=== PATIENT | male | born 1960 | race Caucasian/White ===

== ENCOUNTER 2023-05-13 00:42 | Emergency (ER) | payer MEDICARE, SELFPAY ==
[2023-05-13 00:43] VITALS: BP 146/82; PULSE 74; RESP 22; TEMP 37.1; O2SAT 100; BMI 25.8
--- NOTE | 2023-05-13 00:45 | XRR_ITS ---
PROCEDURE INFORMATION: Exam: XR Chest Exam date and time: 05/13/2023 12:53 AM Age: 62 years old Clinical indication: Chest pressure; Prior surgery; Surgery date: 6+ months; Surgery type: Cabg; Patient HX: C/O chest pain TECHNIQUE: Imaging protocol: Radiologic exam of the chest. Views: 1 view. COMPARISON: CR Chest 1 [place] [id number] 04/20/2019 12:41 PM FINDINGS: Lungs: Interval resolution of bilateral pulmonary opacities. Pleural spaces: Unremarkable. No pleural effusion. No pneumothorax. Heart/Mediastinum: Unremarkable. No cardiomegaly. Bones/joints: Stable sternotomy. XR/XR chest 1V portable [id number] IMPRESSION: 1. Stable sternotomy. 2. Interval resolution of bilateral pulmonary opacities.
--- NOTE | 2023-05-13 00:46 | ECG_ITS ---
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 Measurements Intervals [place] Rate: 74 P: 58 TX: 206 QRS: -21 QRSD: 122 T: 84 QT: 426 QTc: 474 Interpretive Statements SINUS RHYTHM MODERATE INTRAVENTRICULAR CONDUCTION DELAY MODERATE T-WAVE ABNORMALITY, CONSIDER LATERAL ISCHEMIA Compared to ECG 04/20/2019 18:44:50 Possible ischemia now present Atrial abnormality no longer present T-wave abnormality still present Electronically Signed On 05-15-2023 18:45:41 CATALOGUE AND SPECIAL PRODUCTS MANAGER by Flaca Gómez M.D. [id number] f
[2023-05-13 01:04] LABS: Basophils # 0.1 10^3/uL (0.0-0.1); Basophils % 0.7 %; Eosinophils # 0.1 10^3/uL (0.0-0.8); Eosinophils % 1.1 %; Hematocrit 52.6 % (37-53); Lymphocytes # 3.1 10^3/uL (0.8-4.8); Lymphocytes % 26.8 %; Mean Corpuscular HGB Conc 31.9 g/dL (30-55); Mean Corpuscular Hemoglobin 31.1 pg (27-33); Mean Corpuscular Volume 97.2 fl (82-101); Monocytes # 0.8 10^3/uL (0.2-0.9); Monocytes % 6.8 %; Neutrophils # 7.31 10^3/uL (1.8-7.7); Neutrophils % 63.5 %; Nucleated Red Blood Cells % 0 %; Platelet Count 231 10^3/cmm (157-399); Red Blood Count 5.41 10^6/uL (3.85-5.65); White Blood Count 11.51 10^3/uL (3.29-11.43)
[2023-05-13 01:21] LABS: D Dimer 0.87 ug/mLFEU (0-0.59)
[2023-05-13 01:25] LABS: Troponin(5th) Baseline 31 ng/L (0-15)
[2023-05-13 01:32] LABS: Alanine Aminotransferase 132 U/L (0-41); Alkaline Phosphatase 153 U/L (40-130); Aspartate Amino Transferase 296 U/L (0-40); Blood Urea Nitrogen 28 mg/dL (8-23); Calcium 9.3 mg/dL (8.5-10.5); Carbon Dioxide 25 mmol/L (22-29); Chloride 98 mmol/L (98-107); Creatinine Clr Calc Pharmacy 82.8304; Globulin 3.2 g/dL (1.3-4.6); Glomerular Filtration Rate 75.7 mL/min (90-130); Glucose 204 mg/dL (65-115); NT Pro B Type Natriuretic Pept 421 pg/mL (0-125); Osmolality Calculated 295 mOsm/kg (285-295); Sodium 137 mmol/L (136-145); Total Bilirubin 0.5 mg/dL (0.15-1.2); Total Protein 7.2 g/dL (6.6-8.7)
[2023-05-13] MEDS: ondansetron 2 mg/ML SDV 2 mL 4 MG IVP (01:43)
[2023-05-13] MEDS: morphine 4 mg/mL SDV 1 mL IVP (01:43)
[2023-05-13 02:33] VITALS: BP 102/65; PULSE 64; RESP 18; O2SAT 96
--- NOTE | 2023-05-13 02:42 | ED_ITS ---
HPI - Chest Pain General: Chief Complaint: Chest Pain Stated Complaint: CHEST PAIN Time Seen by Provider: 05/13/23 01:05 History of Present Illness: 62-year-old male with a history of coronary disease. He states that he had a CABG and then stents to follow in 2008. No intervention since that time. He has had an angiogram in the somewhat recent past, but he and his do not re call the date. He presents with chest discomfort to the left greater than right side of his chest, radiating into his neck and down his arms bilaterally. He was given nitroglycerin by EMS and aspirin, with some relief. He notes that his chest pain is significantly improved, but That his arms and hands are still aching. He is a bit short of breath. His states that he has gained some water weight the past several days and seems more swollen. She gave him an extra Lasix daily for the past couple of days trying to mobilize the fluid but it has not seemed to help. Associated symptoms: Reports dyspnea, nausea and palpitations; Deny abdominal pain, fever(s) or vomiting Review of Systems Const: Denies: fever(s) ENMT: Denies: throat pain, odynophagia or hoarseness Card: Reports: chest pain and palpitations Resp: Reports: dyspnea; Denies: productive cough or non-productive cough GI: Reports: nausea; Denies: abdominal pain or vomiting Physical Exam Const: COMMON NORMALS: no acute distress GENERAL APPEARANCE: cooperative; not ill appearing and not frail appearing HENMT: COMMON NORMALS: normocephalic, atraumatic and Normal external nose present HEAD & SCALP: normocephalic and atraumatic FACE & SINUS: normal facial exam and face symmetric NOSE: Normal external nose present Eye: COMMON NORMALS: Equal, round and reactive pupils present and EOMs intact bilaterally PUPIL: Yes Equal, round and reactive pupils present Neck/C-Spine: GENERAL: Yes trachea midline Chest: CHEST: Yes Symmetrical chest wall rise Resp: COMMON NORMALS: normal respiratory effort, No retractions, No use of accessory muscles and clear to auscultation bilaterally AUSCULTATION: clear to auscultation bilaterally Cardio: COMMON NORMALS: regular rate and regular rhythm RATE: regular rate RHYTHM: regular rhythm GI: COMMON NORMALS: Normal to inspection, nondistended, normoactive bowel sounds present Extremity: COMMON NORMALS: no pedal edema Neuro: TITO COMA SCALE: document GCS findings [place] coma scale eye opening: Spontaneous Tito coma scale verbal response: Orientated Tito coma scale motor response: Obey commands Tito coma scale total score: 15 SENSORY EXAM: Yes extremities (intact) Psych: COMMON NORMALS: speech normal SPEECH: Yes normal speech Skin: COMMON NORMALS: no rashes or lesions noted GENERAL SKIN EXAM: no rashes or lesions noted Course Vital Signs: Vital signs: Vital Signs Temperature 98.8 F 05/13/23 00:43 Pulse Rate 64 05/13/23 02:33 Respiratory Rate 18 05/13/23 02:33 Blood Pressure 102/65 05/13/23 02:33 Pulse Oximetry 96 05/13/23 02:33 MDM - Chest Pain Medical Decision Making Pain is essentially resolved to his chest after 4 mg of morphine and 4 mg of Zofran, and the nitroglycerin and aspirin given to the patient by EMS. He still complains of some achiness in his hands. Vitals are good. White blood cell count is 11.5. BUN is 28. Blood sugar is 200. If his first troponin is 31. We do not have her prior baseline on record. His BNP is 421. Again, no baseline or previous BNP available at this point. Chest x-ray is negative. His EKG shows a sinus rhythm with intraventricular conduction delay,, rate of 75, no acute ST elevation or depression. Awaiting a second troponin. Second troponin is stable. Patient's symptoms resolved. He was given the option of observation in the hospital versus going home to return for return of symptoms. He chose the latter. He will be allowed discharge. We will switch Lasix to Bumex for 3 days or so in an attempt to mobilize fluid, then back to furosemide. We will place him on isosorbide. He knows to return for any return of his symptoms Lab Data 05/13/23 00:49 05/13/23 00:49 Radiology Impressions Chest X-Ray 05/13/23 00:45 IMPRESSION: 1. Stable sternotomy. 2. Interval resolution of bilateral pulmonary opacities. Laboratory Results WBC 11.51 10^3/uL (3.29-11.43) H 05/13/23 00:49 RBC 5.41 10^6/uL (3.85-5.65) 05/13/23 00:49 Hgb 16.80 g/dL (11.27-16.99) 05/13/23 00:49 Hct 52.6 % (37-53) 05/13/23 00:49 MCV 97.2 fl (82-101) 05/13/23 00:49 MCH 31.1 pg (27-33) 05/13/23 00:49 MCHC 31.9 g/dL (30-55) 05/13/23 00:49 RDW 14.0 % (12.1-15.1) 05/13/23 00:49 Plt Count 231 10^3/cmm (157-399) 05/13/23 00:49 MPV 11.0 fL (7.4-10.4) H 05/13/23 00:49 Neut % (Auto) 63.5 % 05/13/23 00:49 Lymph % (Auto) 26.8 % 05/13/23 00:49 [place] % (Auto) 6.8 % 05/13/23 00:49 Eos % (Auto) 1.1 % 05/13/23 00:49 Baso % (Auto) 0.7 % 05/13/23 00:49 Neut # (Auto) 7.31 10^3/uL (1.8-7.7) 05/13/23 00:49 Lymph # (Auto) 3.1 10^3/uL (0.8-4.8) 05/13/23 00:49 [place] # (Auto) 0.8 10^3/uL (0.2-0.9) 05/13/23 00:49 Eos # (Auto) 0.1 10^3/uL (0.0-0.8) 05/13/23 00:49 Baso # (Auto) 0.1 10^3/uL (0.0-0.1) 05/13/23 00:49 Nucleated RBC % (auto) 0 % 05/13/23 00:49 Nucleated RBCs # 0.0 /100WBC 05/13/23 00:49 D-Dimer 0.87 ug/mLFEU (0-0.59) H 05/13/23 00:49 Sodium 137 mmol/L (136-145) 05/13/23 00:49 Potassium 5.0 mmol/L (3.5-5.1) 05/13/23 00:49 Chloride 98 mmol/L (98-107) 05/13/23 00:49 Carbon Dioxide 25 mmol/L (22-29) 05/13/23 00:49 Anion Gap 19.0 (5-19) 05/13/23 00:49 BUN 28 mg/dL (8-23) H 05/13/23 00:49 Creatinine 1.0 mg/dL (0.7-1.2) 05/13/23 00:49 GFR Calculation 75.7 mL/min (90-130) L 05/13/23 00:49 Glucose 204 mg/dL (65-115) H 05/13/23 00:49 Calculated Osmolality 295 mOsm/kg (285-295) 05/13/23 00:49 Calcium 9.3 mg/dL (8.5-10.5) 05/13/23 00:49 Total Bilirubin 0.5 mg/dL (0.15-1.2) 05/13/23 00:49 AST 296 U/L (0-40) H 05/13/23 00:49 ALT 132 U/L (0-41) H 05/13/23 00:49 Alkaline Phosphatase 153 U/L (40-130) H 05/13/23 00:49 Troponin T Baseline 31 ng/L (0-15) H 05/13/23 00:49 Troponin T 120 Minute 29.38 ng/L (0-15) H 05/13/23 02:33 Delta Troponin T -1.62 ABS# (0-10) L 05/13/23 02:33 NT-Pro-B Natriuret Pep 421 pg/mL (0-125) H 05/13/23 00:49 Total Protein 7.2 g/dL (6.6-8.7) 05/13/23 00:49 Albumin 4.0 g/dL (3.5-5.2) 05/13/23 00:49 Globulin 3.2 g/dL (1.3-4.6) 05/13/23 00:49 All radiology interpretation(s) finalized by discharge Discharge Plan Discharge Patient Disposition: Home Clinical Impression: Chest pain Condition: Stable Prescriptions: New bumetanide 2 mg tablet 2 mg PO BID 3 Days Qty: 6 0RF isosorbide dinitrate 20 mg tablet 10 mg PO BID Qty: 30 0RF Rx Instructions: allow nitrate-free interval of 12-14 hrs per 24-hr period Discharge Orders: Discharge ED (Routine); Ordered 05/13/23 Ordered By: Juan Carlos Beckett Patient Instructions: Chest Pain (ED) Activity Restrictions/Additional Instructions: Stop your furosemide for the next 3 days. Use the bumetanide as prescribed twice daily for the next 3 days instead. You may go back on the furosemide following. Other medications as directed. Return for return of chest discomfort, worsening shortness of breath, any other concerning symptoms. Follow-up with your doctors next week as scheduled. Coding Level of Care Code ED Curbing Stonecutter for Allan Person
--- NOTE | 2023-05-13 02:46 | ECG_ITS ---
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 Measurements Intervals [place] Rate: 60 P: 58 MS: 209 QRS: -28 QRSD: 129 T: 115 QT: 462 QTc: 464 Interpretive Statements SINUS RHYTHM BORDERLINE LEFT AXIS DEVIATION [QRS AXIS < -20] MODERATE INTRAVENTRICULAR CONDUCTION DELAY [110+ ms QRS DURATION] ST DEVIATION AND MODERATE T-WAVE ABNORMALITY, CONSIDER LATERAL ISCHEMIA [-0.1+ mV T-WAVE IN I/aVL/V5/V6] Compared to ECG 05/13/2023 00:43:31 No significant changes Electronically Signed On 05-15-2023 8:13:44 CLEARANCE REPRESENTATIVE by Flaca Gómez M.D. [id number]
[2023-05-13 03:00] LABS: Troponin 5 2HR 29.38 ng/L (0-15)
[2023-05-13 03:02] LABS: Troponin 5 2HR Delta -1.62 ABS# (0-10)
[2023-05-13 04:07] VITALS: PULSE 62; RESP 18
== END 2023-05-13 04:09 | disposition home or self-care (01) ==
PROVIDERS: Nurse Practitioner Family; Emergency Provider Emergency Medicine
DX: R07.9 Chest pain, unspecified (principal); I25.10 Atherosclerotic heart disease of native coronary artery without angina pectoris; Z95.1 Presence of aortocoronary bypass graft
CPT/HCPCS: 36415; 71045; 80053; 83880; 84484; 85025; 85378; 93005; 96374; 96375; 99285; J2270; J2405

== ENCOUNTER 2023-09-12 18:11 | Emergency (ER) | payer MEDICARE, SELFPAY ==
[2023-09-12 18:15] VITALS: BP 107/62; PULSE 82; RESP 18; TEMP 36.9; O2SAT 96
--- NOTE | 2023-09-12 18:22 | USR_ITS ---
PROCEDURE INFORMATION: Exam: US Scrotum Exam date and time: 09/12/2023 7:11 PM Age: 63 years old Clinical indication: Edema and epididymitis; Patient HX: Patient is seeing a urologist in [place] for chronic uti's and has been on antibiotics, multiplle courses and still has the UTI. Uriologist has prescribed self catheterization 3 times daily for 6 weeks. Now is having right scrotal swelling and pain x 2 weeks. L no history of vasectomy. ; Additional info: Testicle pain and swelling TECHNIQUE: Imaging protocol: Real-time ultrasound of the scrotum and contents with color Doppler and image documentation. COMPARISON: US scrotum [id number] 01/20/2017 1:59 PM FINDINGS: Right testicle is unremarkable in overall size measuring 4.1 x 3.0 x 2.0 cm. There is mild increased vascularity along the superior aspect near the epididymis suspicious for focal orchitis. Right epididymis enlarged, hypervascular and relatively hypoechoic consistent with acute epididymitis.. There is a moderate size accompanying complex hydrocele containing some internal echoes and thin incomplete septations. Left testicle is unremarkable in size and contour measuring 4.5 x 2.6 x 1.9 cm. Left testicle is homogeneous and unremarkable in echotexture. Normal Doppler flow. Left epididymis is unremarkable. No significant hydrocele. Small left varicocele measuring 3 mm in diameter. US/US scrotum [id number] IMPRESSION: Findings consistent with acute right epididymitis/orchitis with accompanying reactive hydrocele.
[2023-09-12 18:48] VITALS: BP 108/66; PULSE 77; O2SAT 92
[2023-09-12 19:42] LABS: Specific Gravity, Urine 1.005 (1.005-1.030); Urine Appearance Hazy (CLEAR); Urine Color Light yellow (Yellow); pH Urine 6 (5-7)
[2023-09-12 19:43] LABS: Add Urine Microscopic? YES; Bilirubin Urine Neg (Negative); Blood Urine Neg (Negative); Glucose Urine UA 4+ (Normal); Ketones Urine Negative (Negative); Leukocyte Esterase Urine 2+ (Negative); Nitrate Urine Negative (Negative); Protein Urine Neg (Negative); Urobilinogen Urine Norm (Negative)
[2023-09-12 19:53] LABS: Add Urine Culture? Yes; Bacteria Urine 2+ /hpf; Mucus Urine TRACE /hpf; RBC Urine 0-4 /hpf (0-2); WBC Urine 0-4 /hpf (0-5)
[2023-09-12 20:00] VITALS: BP 100/63; PULSE 72; O2SAT 91
--- NOTE | 2023-09-12 20:48 | W.ED.MALEGU ---
HPI - Male Genitourinary General: Chief complaint: Urogenital-Male Stated complaint: sent from [facility]. testical epididymitis Time Seen by Provider: 09/12/23 18:37 History of Present Illness: 63-year-old male presents emergency department with complaints of swollen right testicle. He states he self caths due to BPH and urinary retention and has had a urinary tract infection. He states he seen his primary care provider received Augmentin and then was prescribed Bactrim which she is currently taking and he is on day #3 of his Bactrim. He states he started having swelling of the right testicle and pain of the right testicle. He states he does have a urology appointment. He states current pain is a 4 out of 10 at present. Review of Systems General: Reports: 10 or more systems reviewed and unremarkable except in HPI and below : Reports: urinary frequency, urinary urgency, change in urine stream, testicular pain and scrotal swelling Physical Exam Narrative: EXAM NARRATIVE: Constitutional: the patient appears well nourished and of normal development. Vital signs as documented. No acute distress at present. Alert and oriented-to person, place, time and situation. Head, eyes, ears, nose, mouth, throat: Normocephalic, atraumatic. Pupils-equal, round, reactive to light. No scleral icterus. Normal-appearing external ears. Normal appearing nasal turbinates, no drainage. No obvious oral lesions, posterior oropharynx without erythema or exudates. Neck: Supple, trachea is midline, no lymphadenopathy, no jugular venous distension, thyromegaly, or carotid bruits. Carotid upstrokes are brisk bilaterally. Lungs: clear to auscultation to all lung simmons. Symmetrical rise and fall of chest, no obvious signs of increased work of breathing at present. Cardiac: Regular rate and rhythm, positive S1, S2. No murmurs, rubs or gallops that I can appreciate Genitourinary: Right testicular swelling and tenderness to the epididymis. No obvious torsion. Patient is circumcised and there is no appearance of yeast infection. Abdomen: Soft, non-tender to palpation, normal active bowel sounds to all quadrants. No palpable masses, no organomegaly and abdominal bruits. Extremities: 2+ pulses in the upper extremities that are equal bilaterally, 2+ pulses in the lower extremities that are equal bilaterally. Non-edematous. Moves all extremities well, sensation to all extremities are noted. Skin: Warm, dry, intact. Course Vital Signs: Vital signs: Vital Signs Temperature 98.4 F 09/12/23 18:15 Pulse Rate 73 09/12/23 21:34 Respiratory Rate 18 09/12/23 21:34 Blood Pressure 105/74 09/12/23 21:34 Pulse Oximetry 95 09/12/23 21:34 Oxygen Delivery Me thod Room Air 09/12/23 21:00 MDM - Male Medical Decision Making Physical exam completed and documented I will obtain an ultrasound for evaluation of provide the patient antibiotics in addition to his current prescription of Bactrim. Medical Records I reviewed the patient's medical records. Lab Data I reviewed the patient's lab results. Radiology Impressions Scrotum Ultrasound 09/12/23 18:22 IMPRESSION: Findings consistent with acute right epididymitis/orchitis with accompanying reactive hydrocele. Laboratory Results Urine Color Light yellow (Yellow) 09/12/23 19:17 Urine Appearance Hazy (CLEAR) A 09/12/23 19:17 Urine pH 6 (5-7) 09/12/23 19:17 Ur Specific [place] 1.005 (1.005-1.030) 09/12/23 19:17 Urine Protein Neg (Negative) 09/12/23 19:17 Urine Glucose (UA) 4+ (Normal) H 09/12/23 19:17 Urine Ketones Negative (Negative) 09/12/23 19:17 Urine Blood Neg (Negative) 09/12/23 19:17 Urine Nitrate Negative (Negative) 09/12/23 19:17 Urine Bilirubin Neg (Negative) 09/12/23 19:17 Urine Urobilinogen Norm mg/dL (Negative) 09/12/23 19:17 Ur Leukocyte Esterase 2+ (Negative) H 09/12/23 19:17 Urine RBC 0-4 /hpf (0-2) H 09/12/23 19:17 Urine WBC 0-4 /hpf (0-5) H 09/12/23 19:17 Ur Squamous Epith Cells None /hpf (0-5) 09/12/23 19:17 Amorphous Sediment Not Reportable 09/12/23 19:17 Urine Bacteria 2+ /hpf (NONE) H 09/12/23 19:17 Urine Mucus Trace /hpf 09/12/23 19:17 All radiology interpretation(s) finalized by discharge Discharge Plan Discharge Patient Disposition: Home Clinical Impression: Epididymitis, right, Acute UTI Condition: Stable Prescriptions: New doxycycline hyclate 100 mg capsule 100 mg PO BID 14 Days Qty: 28 0RF No Action isosorbide dinitrate 20 mg tablet 10 mg PO BID Qty: 30 0RF Rx Instructions: allow nitrate-free interval of 12-14 hrs per 24-hr period Discharge Orders: Discharge ED (Routine); Ordered 09/12/23 Ordered By: Garth Garcia Referrals: Justin May MD [Primary Care Provider] - Discharge Diet: Usual diet Discharge Activity: Resume usual activity Patient Instructions: Opioid Safety, Pain Management Activity Restrictions/Additional Instructions: Activity Restrictions/Additional Instructions: Thank you for choosing [facility] for your healthcare needs today. Please realize that you were seen in the Emergency Department and that we are providing you with an emergency medical screening exam and this may not be a complete and all inclusive of all the testing and or medical work-up that you may need to determine your ailment or severity of your illness. It is very important that you follow-up as instructed with your Primary care provider or Specialist for additional evaluation and to discuss your medical treatment plan. You may return to the Emergency Department should you have concerns or if your condition changes or worsens in any way. Call to make a Follow-up appointment: [facility] [address] [place] [address] Coding Level of Care Code ED Senior Solutions Consultant for Allan Person
[2023-09-12 21:00] VITALS: BP 116/69; PULSE 72; O2SAT 93
[2023-09-12] MEDS: cefTRIAXone 1,000 MG in water for injection-sterile 2.1 ML 1 MG IM (21:14)
[2023-09-12 21:34] VITALS: BP 105/74; PULSE 73; RESP 18; O2SAT 95
== END 2023-09-12 21:34 | disposition home or self-care (01) ==
PROVIDERS: Emergency Provider Internal Medicine; PCP Family Medicine
DX: N45.1 Epididymitis (principal); N39.0 Urinary tract infection, site not specified
CPT/HCPCS: 76870; 81001; 87077; 87086; 87186; 99284; J0696

== ENCOUNTER → 2023-10-18 12:46 | Day surgery (SDC) | payer MEDICARE, SELFPAY ==
[2023-10-18 13:00] VITALS: BP 92/55; PULSE 66; RESP 18; TEMP 36.5; O2SAT 94
== END ==
PROVIDERS: PCP Family Medicine; Visit Provider Urology
DX: N39.0 Urinary tract infection, site not specified (principal)
CPT/HCPCS: 36569; 36573; C1751

== ENCOUNTER 2023-10-27 09:30 | Oncology outpatient (recurring) (ONCR) | payer MEDICARE, SELFPAY ==
[2023-10-18 14:51] VITALS: BP 97/63; PULSE 63; RESP 16; TEMP 36.9; O2SAT 92
[2023-10-18] MEDS: cefepime 1,000 MG in sodium chloride 0.9% (plus) 50 ML 100 MG IV (14:59)
[2023-10-18 15:26] VITALS: BP 102/64; PULSE 74; RESP 16; TEMP 36.6; O2SAT 92
[2023-10-19 09:24] VITALS: BP 107/69; PULSE 63; RESP 18; TEMP 36.8; O2SAT 95
[2023-10-19] MEDS: cefepime 1,000 MG in sodium chloride 0.9% (plus) 50 ML 100 MG IV (09:52)
[2023-10-19 10:13] VITALS: BP 102/63; PULSE 53; RESP 18; TEMP 36.4; O2SAT 98
[2023-10-20] MEDS: cefepime 1,000 MG in sodium chloride 0.9% (plus) 50 ML 100 MG IV (10:08)
[2023-10-20 10:43] VITALS: BP 103/65; PULSE 60; TEMP 36.1; O2SAT 98
[2023-10-21] MEDS: cefepime 1,000 MG in sodium chloride 0.9% (plus) 50 ML 100 MG IV (09:31)
[2023-10-21 09:35] VITALS: BP 140/80; PULSE 64; RESP 18; TEMP 36.4; O2SAT 99
[2023-10-22 09:15] VITALS: BP 129/76; PULSE 59; RESP 18; TEMP 36.4; O2SAT 100
[2023-10-22] MEDS: cefepime 1,000 MG in sodium chloride 0.9% (plus) 50 ML 100 MG IV (09:27)
[2023-10-22 10:00] VITALS: BP 114/79; PULSE 55; RESP 17; TEMP 36.8; O2SAT 98
[2023-10-23] MEDS: cefepime 1,000 MG in sodium chloride 0.9% (plus) 50 ML 100 MG IV (09:59)
[2023-10-23 10:00] VITALS: BP 109/69; PULSE 67; RESP 16; TEMP 36; O2SAT 98
[2023-10-23 10:30] VITALS: BP 116/73; PULSE 62; RESP 16; TEMP 36.4; O2SAT 97
[2023-10-24 10:01] VITALS: BP 128/78; PULSE 63; RESP 16; TEMP 36.6; O2SAT 95
[2023-10-24] MEDS: cefepime 1,000 MG in sodium chloride 0.9% (plus) 50 ML 100 MG IV (10:26)
[2023-10-25 09:44] VITALS: BP 126/74; PULSE 64; RESP 16; TEMP 36.4; O2SAT 97
[2023-10-25] MEDS: cefepime 1,000 MG in sodium chloride 0.9% (plus) 50 ML 100 MG IV (10:00)
[2023-10-25 10:39] VITALS: BP 107/68; PULSE 60; TEMP 36.3; O2SAT 95
[2023-10-26 09:42] VITALS: BP 120/73; PULSE 64; RESP 16; TEMP 36.6; O2SAT 98
[2023-10-26] MEDS: cefepime 1,000 MG in sodium chloride 0.9% (plus) 50 ML 100 MG IV (10:05)
[2023-10-26 10:46] VITALS: BP 127/69; PULSE 80; RESP 16; O2SAT 99
[2023-10-27] MEDS: cefepime 1,000 MG in sodium chloride 0.9% (plus) 50 ML 100 MG IV (09:04)
[2023-10-27 09:59] VITALS: BP 115/69; PULSE 63; TEMP 36.3; O2SAT 98
== END 2023-10-31 23:59 | disposition home or self-care (01) ==
PROVIDERS: PCP Family Medicine; Visit Provider Physician Assistant
DX: N39.0 Urinary tract infection, site not specified (principal); Z79.2 Long term (current) use of antibiotics; Z53.9 Procedure and treatment not carried out, unspecified reason
CPT/HCPCS: 36569; 36573; 96365; C1751; J0692

== ENCOUNTER 2023-12-30 14:43 | Emergency (ER) | payer MEDICARE, SELFPAY ==
[2023-12-30] VITALS (8 sets, daily range): BP systolic 95–144; BP diastolic 56–77; PULSE 62–84; RESP 16–20; TEMP 38; O2SAT 90–95; BMI 28.7
--- NOTE | 2023-12-30 14:49 | XRR_ITS ---
PROCEDURE INFORMATION: Exam: XR Chest Exam date and time: 12/30/2023 3:09 PM Age: 63 years old Clinical indication: Other: AMS weakness TECHNIQUE: Imaging protocol: Radiologic exam of the chest. Views: 1 view. COMPARISON: CR XR chest 1V portable [id number] 05/13/2023 12:53 AM FINDINGS: Lungs: Mild reticulonodular opacity in the lower lungs bilaterally. Pleural spaces: The left lateral costophrenic sulcus is blunted. No pneumothorax. Heart/Mediastinum: There is moderate enlargement of the cardiac silhouette. Bones/joints: Sternal wires are present. There is no displacement to suggest sternal dehiscence. XR/XR chest 1V portable [id number] IMPRESSION: 1. Mild bilateral lower lung predominant reticulonodular opacity is nonspecific. Possible infection or pulmonary edema. 2. Cardiac enlargement.
--- NOTE | 2023-12-30 14:49 | CTR_ITS ---
PROCEDURE INFORMATION: Exam: CT Head Without Contrast Exam date and time: 12/30/2023 3:12 PM Age: 63 years old Clinical indication: Altered mental status/memory loss; Additional info: Encephalopathy, altered mental status TECHNIQUE: Imaging protocol: Computed tomography of the head without contrast. Radiation optimization: All CT scans at this facility use at least one of these dose optimization techniques: automated exposure control; mA and/or kV adjustment per patient size (includes targeted exams where dose is matched to clinical indication); or iterative reconstruction. COMPARISON: CT head wo con* [id number] 07/02/2017 4:45 PM RADIATION DOSE METRICS: Total DLP (mGy-cm): 1134.68 FINDINGS: Brain: There is mild diffuse cerebral atrophy and chronic microvascular white matter disease. There is no significant mass effect or midline shift. There is no acute intracranial hemorrhage. Cerebral ventricles: There is no significant ventricular dilation. The basal cisterns are unremarkable. Paranasal sinuses: The paranasal sinuses are clear. Mastoid air cells: Trace effusion associated with bone sclerosis in the posteroinferior right mastoid air cells. Moderate left mastoid effusion with extensive bone sclerosis. Bones: The calvarium is intact. Soft tissues: The visible extracranial soft tissues are unremarkable. CT/CT head wo con* [id number] IMPRESSION: 1. No acute intracranial abnormality. 2. Suggestive findings of chronic bilateral mastoiditis, greater on the left, similar to findings on 07/02/2017.
--- NOTE | 2023-12-30 14:56 | ECG_ITS ---
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 Measurements Intervals [place] Rate: 70 P: 49 SC: 171 QRS: -45 QRSD: 106 T: 93 QT: 429 QTc: 465 Interpretive Statements SINUS RHYTHM POSSIBLE LEFT ATRIAL ENLARGEMENT [-0.1mV P-WAVE IN V1/V2] LEFT AXIS DEVIATION [QRS AXIS < -30] MODERATE T-WAVE ABNORMALITY, CONSIDER LATERAL ISCHEMIA [-0.1+ mV T-WAVE IN I/aVL/V5/V6] Compared to ECG 05/13/2023 02:54:10 Intraventricular conduction delay no longer present T-wave abnormality still present Possible ischemia still present Electronically Signed On 12-30-2023 19:11:58 CDT by Kim Devi M.D. [id number]
[2023-12-30 15:12] LABS: Basophils % 0.3 %; Eosinophils % 0.2 %; Hematocrit 47.3 % (37-53); Lymphocytes # 1.6 10^3/uL (0.8-4.8); Lymphocytes % 12.4 %; Mean Corpuscular HGB Conc 32.1 g/dL (30-55); Mean Corpuscular Hemoglobin 28.3 pg (27-33); Mean Corpuscular Volume 87.9 fl (82-101); Mean Platelet Volume 11.9 fL (7.4-10.4); Monocytes # 1.2 10^3/uL (0.2-0.9); Monocytes % 9.5 %; Nucleated Red Blood Cells % 0 %; Platelet Count 166 10^3/cmm (157-399); Red Blood Count 5.38 10^6/uL (3.85-5.65); Red Cell Distribution Width 14.9 % (12.1-15.1); White Blood Count 12.59 10^3/uL (3.29-11.43)
[2023-12-30 15:30] LABS: Troponin(5th) Baseline 97 ng/L (0-15)
[2023-12-30 15:31] LABS: Alanine Aminotransferase 14 U/L (0-41); Albumin Level 3.3 g/dL (3.5-5.2); Alkaline Phosphatase 117 U/L (40-130); Anion Gap 18.2 (5-19); Aspartate Amino Transferase 15 U/L (0-40); Blood Urea Nitrogen 14 mg/dL (8-23); C Reactive Protein 61.6 mg/L (0.0-4.9); Calcium 8.5 mg/dL (8.5-10.5); Carbon Dioxide 24 mmol/L (22-29); Chloride 100 mmol/L (98-107); Globulin 2.6 g/dL (1.3-4.6); Glomerular Filtration Rate 97.6 mL/min (90-130); Glucose 116 mg/dL (65-115); Osmolality Calculated 287 mOsm/kg (285-295); Potassium 4.2 mmol/L (3.5-5.1); Sodium 138 mmol/L (136-145); Total Bilirubin 0.9 mg/dL (0.15-1.2); Total Protein 5.9 g/dL (6.6-8.7)
[2023-12-30 15:32] LABS: Lactic Sepsis W/Reflex 2.3 mmol/L (0.5-2.2)
[2023-12-30 15:38] LABS: Procalcitonin 0.14 ng/mL (0-0.5)
--- NOTE | 2023-12-30 15:45 | ED_ITS ---
HPI - Altered Mental Status 2 General: Chief Complaint: Altered Mental Status Stated Complaint: AMS Time Seen by Provider: 12/30/23 14:44 History of Present Illness: 63-year-old man with history of multiple back issues and chronic back pain, coronary artery disease, ischemic cardiomyopathy, atrial fibrillation on Eliquis, type 2 diabetes, BPH, depression, who presents to the emergency room by ambulance from [facility]. Apparently he is at rehab there. Apparently today he was less responsive than normal. Presentation here he will answer questions. He says that he hurts all over. Said some cough. No focal motor deficits. No known fevers. Review of Systems 2 Narrative: Constitutional symptoms: Negative except as documented in HPI. Skin symptoms: Negative except as documented in HPI. Eye symptoms: Negative except as documented in HPI. ENMT symptoms: Negative except as documented in HPI. Respiratory symptoms: Negative except as documented in HPI. Cardiovascular symptoms: Negative except as documented in HPI. Gastrointestinal symptoms: Negative except as documented in HPI. Genitourinary symptoms: Negative except as documented in HPI. Musculoskeletal symptoms: Negative except as documented in HPI. Neurologic symptoms: Negative except as documented in HPI. Psychiatric symptoms: Negative except as documented in HPI. Endocrine symptoms: Negative except as documented in HPI. Physical Exam 2 Narrative: General: Alert, no acute distress. Patient is febrile on presentation with a temp of 100.4 Skin: Warm, dry. Head: Normocephalic, atraumatic. Neck: Supple, trachea midline. Eye: Extraocular movements are intact. Ears, nose, mouth and throat: mucosa moist. Cardiovascular: Regular, Normal peripheral perfusion. Respiratory: Lungs are clear to auscultation, respirations are non-labored, breath sounds are equal, Symmetrical chest wall expansion. Gastrointestinal: Soft, Nontender, Non distended Musculoskeletal: Normal ROM, no deformity. Neurological: Alert and oriented, No focal neurological deficit observed. Psychiatric: Cooperative, appropriate mood & affect. Course 2 Vital Signs: Vital signs: Vital Signs Temperature 100.4 F H 12/30/23 14:43 Pulse Rate 75 12/30/23 15:37 Respiratory Rate 20 H 12/30/23 14:43 Blood Pressure 102/69 12/30/23 15:37 Pulse Oximetry 92 12/30/23 15:37 Oxygen Delivery Me thod Room Air 12/30/23 14:43 MDM - Altered Mental Status Medical Decision Making Medical decision making: Differential diagnosis including but not limited to and based on the above HPI, review of systems and physical exam: In this patient with altered mental status: Stroke. Hypoglycemia. Metabolic encephalopathy. Infections such as pneumonia, urinary tract infection, Covid-19, Influenza. Electrolyte abnormalities such as hypernatremia. Renal failure / uremia. Hepatic encephalopathy. Hypoxemia. Hypercapnic respiratory failure. Psychosis. Drug or alcohol intoxication. Medication overdose. Orders placed to evaluate differential diagnosis based on the above differential, HPI and physical exam EKG: Time 1456. Rate 70. Normal sinus rhythm, nonspecific ST changes. No ectopy, normal LA & QRS intervals, This was reviewed and interpreted by myself the ER physician at 1500. Repeat EKG: Time 1636. Rate 73. Normal sinus rhythm, nonspecific ST changes. No ectopy, normal LA & QRS intervals, This was reviewed and interpreted by myself the ER physician at 1638. No acute changes from previous CT head: No acute intracranial process. no intracranial hemorrhage, no evidence of infarct. no evidence of acute fracture.This was reviewed and interpreted by myself the ER physician. Chest x-ray: Reticulonodular pattern in the lower lungs bilaterally. This seems to be present in the past. No acute process. No infiltrate. No pneumothorax. This was reviewed and interpreted by myself the ER physician. CT of the chest without contrast: Was ordered to evaluate what appeared to be a abnormal chest x-ray. He has some mild bilateral lung disease that seems to be chronic interstitial disease. Atelectasis versus infection in the lower lobes. This was reviewed and interpreted by myself the emergency room physician. I also reviewed the radiology report. Lab Review: Laboratory results were reviewed and interpreted by myself the emergency room physician. Mild leukocytosis with a white count of 12.5. No anemia. Hemoglobin is 15. No renal failure. BUN and creatinine are 14 and 0.8. Potassium is normal at 4.2. Patient again has a urinary tract infection. I reviewed the patient's medical record. Reexamination: has arrived and has more information. She says he was in the hospital for about a month at [facility] in [place]. He had had multiple urinary tract infections and required different courses of IV antibiotics. She mentions Pseudomonas and E. coli that had been in his urine in the past. She is requesting that he be transferred there. At this time he is not in any distress. No tachycardia. No increased work of breathing. No focal motor deficits. Assessment and plan: Urinary tract infection Sepsis Atelectasis versus pneumonia Metabolic encephalopathy Fever ?I am giving broad-spectrum antibiotics that would cover both lung and resistant organisms in his urine. -2.5 L normal saline bolus. Fluid volumes based on ideal body weight. -Broad-spectrum antibiotics were administered. Meropenem and Zyvox -Sepsis quality measures. -Lactic acid with a reflex was ordered. -Blood cultures were ordered. -I discussed the patient with the hospitalist on-call at [facility] who is accepting the patient in transfer - Dr Palacios accepting. - Discussed findings and plan with patient. Answered any questions. - All laboratory values were reviewed and interpreted personally by myself, the ER physician - All imaging was reviewed and interpreted personally by myself, the ER physician. - Evaluation and treatment of this problem were appropriate in the emergency setting -I spent a total of >35 minutes of critical care time managing the patient, independent of any other practitioner. -The time involved in the performance of separately reportable procedures was not counted towards critical care time. Lab Data 12/30/23 14:33 12/30/23 14:33 Radiology Impressions Chest X-Ray 12/30/23 14:49 IMPRESSION: 1. Mild bilateral lower lung predominant reticulonodular opacity is nonspecific. Possible infection or pulmonary edema. 2. Cardiac enlargement. Head CT 12/30/23 14:49 IMPRESSION: 1. No acute intracranial abnormality. 2. Suggestive findings of chronic bilateral mastoiditis, greater on the left, similar to findings on 07/02/2017. Chest CT 12/30/23 15:45 IMPRESSION: 1. Mild bilateral lung disease with imaging features suggestive of chronic interstitial disease, NSIP pattern. There is superimposed subpleural consolidation in both lower lobes which may represent atelectasis although infection cannot be excluded. 2. Mild upper lung predominant centrilobular emphysema. 3. Mildly dilated ascending thoracic aorta measuring up to 4.3 cm diameter. Recommend clinical assessment and follow-up. 4. Incidental findings above. COMMENTS: The presence of pulmonary emphysema on CT is an independent risk factor for lung cancer. In the absence of a history or active diagnosis of lung cancer, it is recommended that this patient with emphysema be evaluated for enrollment in a low dose CT lung cancer screening program. Laboratory Results WBC 12.59 10^3/uL (3.29-11.43) H 12/30/23 14:33 RBC 5.38 10^6/uL (3.85-5.65) 12/30/23 14:33 Hgb 15.20 g/dL (11.27-16.99) 12/30/23 14:33 Hct 47.3 % (37-53) 12/30/23 14:33 MCV 87.9 fl (82-101) 12/30/23 14:33 MCH 28.3 pg (27-33) 12/30/23 14:33 MCHC 32.1 g/dL (30-55) 12/30/23 14:33 RDW 14.9 % (12.1-15.1) 12/30/23 14:33 Plt Count 166 10^3/cmm (157-399) 12/30/23 14:33 MPV 11.9 fL (7.4-10.4) H 12/30/23 14:33 Neut % (Auto) 77.0 % 12/30/23 14:33 Lymph % (Auto) 12.4 % 12/30/23 14:33 Wilkes % (Auto) 9.5 % 12/30/23 14:33 Eos % (Auto) 0.2 % 12/30/23 14:33 Baso % (Auto) 0.3 % 12/30/23 14:33 Neut # (Auto) 9.70 10^3/uL (1.8-7.7) H 12/30/23 14:33 Lymph # (Auto) 1.6 10^3/uL (0.8-4.8) 12/30/23 14:33 Wilkes # (Auto) 1.2 10^3/uL (0.2-0.9) H 12/30/23 14:33 Eos # (Auto) 0.0 10^3/uL (0.0-0.8) 12/30/23 14:33 Baso # (Auto) 0.0 10^3/uL (0.0-0.1) 12/30/23 14:33 Nucleated RBC % (auto) 0 % 12/30/23 14:33 Nucleated RBCs # 0.0 /100WBC 12/30/23 14:33 Sodium 138 mmol/L (136-145) 12/30/23 14:33 Potassium 4.2 mmol/L (3.5-5.1) 12/30/23 14:33 Chloride 100 mmol/L (98-107) 12/30/23 14:33 Carbon Dioxide 24 mmol/L (22-29) 12/30/23 14:33 Anion Gap 18.2 (5-19) 12/30/23 14:33 BUN 14 mg/dL (8-23) 12/30/23 14:33 Creatinine 0.8 mg/dL (0.7-1.2) 12/30/23 14:33 GFR Calculation 97.6 mL/min (90-130) 12/30/23 14:33 Glucose 116 mg/dL (65-115) H 12/30/23 14:33 Calculated Osmolality 287 mOsm/kg (285-295) 12/30/23 14:33 Lactic Acid 2.3 mmol/L (0.5-2.2) H 12/30/23 14:33 Lactic Acid (Sepsis) 1.8 mmol/L (0.5-2.2) 12/30/23 16:43 Calcium 8.5 mg/dL (8.5-10.5) 12/30/23 14:33 Total Bilirubin 0.9 mg/dL (0.15-1.2) 12/30/23 14:33 AST 15 U/L (0-40) 12/30/23 14:33 ALT 14 U/L (0-41) 12/30/23 14:33 Alkaline Phosphatase 117 U/L (40-130) 12/30/23 14:33 Troponin T Baseline 97 ng/L (0-15) H 12/30/23 14:33 Troponin T 120 Minute 99.26 ng/L (0-15) H 12/30/23 16:43 Delta Troponin T 2.26 ABS# (0-10) 12/30/23 16:43 C-Reactive Protein 61.6 mg/L (0.0-4.9) H 12/30/23 14:33 Total Protein 5.9 g/dL (6.6-8.7) L 12/30/23 14:33 Albumin 3.3 g/dL (3.5-5.2) L 12/30/23 14:33 Globulin 2.6 g/dL (1.3-4.6) 12/30/23 14:33 Procalcitonin 0.14 ng/mL (0-0.5) 12/30/23 14:33 Urine Color Yellow (Yellow) 12/30/23 17:03 Urine Appearance Cloudy (CLEAR) A 12/30/23 17:03 Urine pH 5 (5-7) 12/30/23 17:03 Ur Specific Richards 1.010 (1.005-1.030) 12/30/23 17:03 Urine Protein 1+ (Negative) H 12/30/23 17:03 Urine Glucose (UA) Norm (Normal) 12/30/23 17:03 Urine Ketones Negative (Negative) 12/30/23 17:03 Urine Blood 3+ (Negative) H 12/30/23 17:03 Urine Nitrate Positive (Negative) A 12/30/23 17:03 Urine Bilirubin Neg (Negative) 12/30/23 17:03 Urine Urobilinogen 1 mg/dL (Negative) H 12/30/23 17:03 Ur Leukocyte Esterase 2+ (Negative) H 12/30/23 17:03 Urine RBC 10-15 /hpf (0-2) H 12/30/23 17:03 Urine WBC Too numerous to cnt /hpf (0-5) H 12/30/23 17:03 Ur Squamous Epith Cells None /hpf (0-5) 12/30/23 17:03 Amorphous Sediment Not Reportable 12/30/23 17:03 Urine Bacteria 3+ /hpf (NONE) H 12/30/23 17:03 All radiology interpretation(s) finalized by discharge Discharge Plan Discharge Patient Disposition: Xfer Short-Term Hosp Clinical Impression: Urinary tract infection, Metabolic encephalopathy, Fever Sepsis Qualifiers: Sepsis type: sepsis due to unspecified organism Sepsis acute organ dysfunction status: without acute organ dysfunction Qualified Code(s): A41.9 - Sepsis, unspecified organism Condition: Stable Discharge Orders: Transfer Out of Facility (Order); Ordered 12/30/23 Ordered By: Samina Youssef Referrals: Justin May MD [Primary Care Provider] - Patient Instructions: Altered Mental Status (ED) Coding Level of Care Code ED Pantograph Transferrer for [facility]
--- NOTE | 2023-12-30 15:45 | CTR_ITS ---
PROCEDURE INFORMATION: Exam: CT Chest Without Contrast; Diagnostic Exam date and time: 12/30/2023 4:14 PM Age: 63 years old Clinical indication: Abnormal findings; Abnormal radiologic exam of lung or chest; Additional info: Abnormal chest xray TECHNIQUE: Imaging protocol: Diagnostic computed tomography of the chest without contrast. Radiation optimization: All CT scans at this facility use at least one of these dose optimization techniques: automated exposure control; mA and/or kV adjustment per patient size (includes targeted exams where dose is matched to clinical indication); or iterative reconstruction. COMPARISON: CR (CHEST, ) 12/30/2023 3:09 PM RADIATION DOSE METRICS: Total DLP (mGy-cm): 607.29 FINDINGS: Lungs: There is mild upper lung predominant centrilobular emphysema. There is mild bilateral lung disease characterized by peripheral lower lung predominant fine reticular opacity sparing the subpleural portions of the lungs, mildly asymmetrically greater on the right. There is mild dependent consolidation in both lung bases. There is mild volume loss in both lower lobes. Pleural spaces: There is no pleural effusion or pneumothorax. Heart: There is mild cardiac enlargement. There is no pericardial effusion. Coronary arteries: There is moderate coronary artery calcification. Lymph nodes: There is no mediastinal or hilar lymphadenopathy. Vasculature: There is mild aortic atherosclerotic disease. The ascending thoracic aorta is mildly dilated measuring up to 4.3 cm diameter. Intraperitoneal space: Visible structures in the upper abdomen are unremarkable. Bones/joints: Sternal wires are present. There is no displacement to suggest sternal dehiscence. There is a chronic ununited right lateral 10th rib fracture. Soft tissues: Mild bilateral gynecomastia. CT/CT chest wo con [id number] IMPRESSION: 1. Mild bilateral lung disease with imaging features suggestive of chronic interstitial disease, NSIP pattern. There is superimposed subpleural consolidation in both lower lobes which may represent atelectasis although infection cannot be excluded. 2. Mild upper lung predominant centrilobular emphysema. 3. Mildly dilated ascending thoracic aorta measuring up to 4.3 cm diameter. Recommend clinical assessment and follow-up. 4. Incidental findings above. COMMENTS: The presence of pulmonary emphysema on CT is an independent risk factor for lung cancer. In the absence of a history or active diagnosis of lung cancer, it is recommended that this patient with emphysema be evaluated for enrollment in a low dose CT lung cancer screening program.
--- NOTE | 2023-12-30 16:36 | ECG_ITS ---
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 Measurements Intervals [place] Rate: 73 P: 40 WI: 191 QRS: -38 QRSD: 117 T: 93 QT: 425 QTc: 471 Interpretive Statements SINUS RHYTHM POSSIBLE LEFT ATRIAL ENLARGEMENT [-0.1mV P-WAVE IN V1/V2] LEFT AXIS DEVIATION [QRS AXIS < -30] PATTERN CONSISTENT WITH PULMONARY DISEASE MODERATE INTRAVENTRICULAR CONDUCTION DELAY [110+ ms QRS DURATION] MODERATE T-WAVE ABNORMALITY, CONSIDER LATERAL ISCHEMIA [-0.1+ mV T-WAVE IN I/aVL/V5/V6] Compared to ECG 12/30/2023 14:56:37 Intraventricular conduction delay now present T-wave abnormality still present Possible ischemia still present Electronically Signed On 12-30-2023 19:21:57 CDT by Kim Devi M.D. [email or web address])/[id number]
[2023-12-30 16:57] LABS: Reflex Lactate Order REFLEX LACTIC ORDERD
[2023-12-30 17:15] LABS: Troponin 5 2HR 99.26 ng/L (0-15); Troponin 5 2HR Delta 2.26 ABS# (0-10)
[2023-12-30 17:20] LABS: Bilirubin Urine Neg (Negative); Blood Urine 3+ (Negative); Glucose Urine UA Norm (Normal); Ketones Urine Negative (Negative); Leukocyte Esterase Urine 2+ (Negative); Nitrate Urine Positive (Negative); Protein Urine 1+ (Negative); Urine Appearance Cloudy (CLEAR); Urine Color Yellow (Yellow); Urobilinogen Urine 1 mg/dL (Negative); pH Urine 5 (5-7)
[2023-12-30 17:21] LABS: Add Urine Culture? Yes; Bacteria Urine 3+ /hpf; WBC Urine TOO NUMEROUS TO CNT /hpf (0-5)
[2023-12-30 17:32] LABS: Lactic Acid level (Lactate) 1.8 mmol/L (0.5-2.2)
[2023-12-30] MEDS: meropenem 500 MG in sodium chloride 0.9% (plus) 50 ML 100 MG IV (18:12)
[2023-12-30] MEDS: sodium chloride 0.9% 1,000 ML 999 ML IV ×2 (18:12→19:03)
[2023-12-30] MEDS: linezolid premix 600 MG/300 ML PREMIX 300 MG IV (19:02)
[2023-12-30] MEDS: sodium chloride 0.9% 500 ML 999 ML IV (21:24)
[2023-12-30 21:26] LABS: Glucose Point of Care 136 mg/dL (70-110)
[2023-12-30] MEDS: oxyCODONE-APAP 5-325 mg Tablet 1 TAB PO (21:49)
--- NOTE | 2023-12-31 | PC.NURSE ---
[facility] advised they will have not have any ambulances to transport this patient until after shift change in AM. I contacted [facility] dispatch and requested ambulance to transport this patient to [facility], [facility] dispatch advised the ambulance will have approx 1.5 hour ETA
[2023-12-31 01:19] VITALS: BP 95/52; PULSE 62; RESP 21; O2SAT 96
[2023-12-31 02:17] VITALS: BP 112/68; PULSE 74; RESP 18; O2SAT 96
== END 2023-12-31 02:18 | disposition short-term general hospital (02) ==
PROVIDERS: Emergency Provider Emergency Medicine; PCP Family Medicine
DX: A41.9 Sepsis, unspecified organism (principal); N39.0 Urinary tract infection, site not specified; G93.41 Metabolic encephalopathy
CPT/HCPCS: 36415; 36416; 70450; 71045; 71250; 80053; 81001; 82962; 83605; 84145; 84484; 85025; 86140; 87040; 87077; 87086; 87186; 93005; 96365; 96366; 96367; 99285; J2020; J2185; J7030; J7040

== ENCOUNTER 2024-01-19 08:28 | Inpatient (IN) | payer MEDICARE, SELFPAY ==
[2024-01-19] VITALS (80 sets, daily range): BP systolic 89–132; BP diastolic 55–95; PULSE 58–101; RESP 13–42; TEMP 37.3–39.2; O2SAT 84–96; BMI 27.3; BMI 25.1
--- NOTE | 2024-01-19 08:59 | ECG_ITS ---
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 Measurements Intervals [place] Rate: 75 P: 44 MN: 182 QRS: -43 QRSD: 119 T: 83 QT: 409 QTc: 459 Interpretive Statements SINUS RHYTHM POSSIBLE LEFT ATRIAL ENLARGEMENT [-0.1mV P-WAVE IN V1/V2] LEFT AXIS DEVIATION [QRS AXIS < -30] MODERATE INTRAVENTRICULAR CONDUCTION DELAY [110+ ms QRS DURATION] NONSPECIFIC T-WAVE ABNORMALITY Compared to ECG 12/30/2023 16:36:05 Possible ischemia no longer present T-wave abnormality still present Electronically Signed On 01-19-2024 9:31:28 CDT by David Pollack M.D. [id number]
[2024-01-19 09:22] LABS: ABG PCO2 33.9 mmHg (35-45); ABG PH Result 7.48 (7.35-7.45); Alveolar-Arterial Oxygen Gradi 5.5 mmHg (5-10); Arterial Blood Gas Hematocrit 42.7 % (42-52); Base Excess ABG 2.3 mmol/L (-2.0-2.0); Blood Gas Allen Test Pos; Blood Gas Operator Identificat CAK; Blood Gas Sample Site Radial, left; Blood Gas Sample Type Arterial; Carboxyhemoglobin 1.6 %THgb (0.4-20.1); HCO3 ABG 25.4 mmol/L (22-26); HGB O2 Sat 93.8 % (95-100); Ionized Calcium Level - ABG 1.2 mmol/L (1.1-1.4); Methemoglobin < 0.0 % (0.4-1.5); Oxygen Device ROOM AIR; Oxygen Saturation ABG 94.4; PO2 ABG 65.5 mmHg (80.0-100.0); PO2 FiO2 Ratio Arterial Blood 311; Potassium Level - ABG 3.8 mmol/L (3.5-5.0); Total Hemoglobin 13.9 g/dL (14-18)
[2024-01-19 09:31] LABS: Basophils # 0.1 10^3/uL (0.0-0.1); Basophils % 0.4 %; Eosinophils % 0.1 %; Hematocrit 43.9 % (37-53); Lymphocytes # 1.3 10^3/uL (0.8-4.8); Lymphocytes % 9.3 %; Mean Corpuscular HGB Conc 31.4 g/dL (30-55); Mean Corpuscular Hemoglobin 28.9 pg (27-33); Mean Corpuscular Volume 91.8 fl (82-101); Mean Platelet Volume 11.2 fL (7.4-10.4); Monocytes # 1.1 10^3/uL (0.2-0.9); Monocytes % 7.8 %; Neutrophils # 11.09 10^3/uL (1.8-7.7); Neutrophils % 81.7 %; Nucleated Red Blood Cells % 0 %; Platelet Count 187 10^3/cmm (157-399); Red Blood Count 4.78 10^6/uL (3.85-5.65); Red Cell Distribution Width 14.6 % (12.1-15.1); White Blood Count 13.57 10^3/uL (3.29-11.43)
[2024-01-19 09:48] LABS: Alanine Aminotransferase 15 U/L (0-41); Anion Gap 20.1 (5-19); Aspartate Amino Transferase 16 U/L (0-40); Blood Urea Nitrogen 14 mg/dL (8-23); Calcium 8.4 mg/dL (8.5-10.5); Carbon Dioxide 21 mmol/L (22-29); Chloride 99 mmol/L (98-107); Creatine Phosphokinase 137 U/L (39-308); Creatinine Clr Calc Pharmacy 87.5742; Glomerular Filtration Rate 85.2 mL/min (90-130); Glucose 202 mg/dL (65-115); Magnesium 1.9 mg/dL (1.7-2.3); Osmolality Calculated 288 mOsm/kg (285-295); Potassium 4.1 mmol/L (3.5-5.1); Sodium 136 mmol/L (136-145); Total Bilirubin 0.8 mg/dL (0.15-1.2)
[2024-01-19 09:49] LABS: Albumin Level 3.3 g/dL (3.5-5.2); Alkaline Phosphatase 114 U/L (40-130); Globulin 3.1 g/dL (1.3-4.6); Lipase 13 U/L (13-60); Total Protein 6.4 g/dL (6.6-8.7)
[2024-01-19 09:53] LABS: Troponin(5th) Baseline 101 ng/L (0-15)
[2024-01-19] MEDS: sodium chloride 0.9% 2,449.41 ML 2449.41 ML IV (09:54)
[2024-01-19] MEDS: heparin 5,000 unit/mL INJ 1 mL IV ×2 (10:06→20:17)
[2024-01-19] MEDS: heparin drip 25,000 UNIT/500 ML PREMIX 22.86 UNIT IV (10:10)
[2024-01-19] MEDS: amiodarone 150 MG/100 ML PREMIX 400 MG IV (10:20)
--- NOTE | 2024-01-19 10:26 | PC.PHAR ---
[facility] FA[facility] MED LIST 01/19/24 10:27AM
[2024-01-19] MEDS: meropenem 1,000 mg SDV 1000 MG IVP (10:32)
--- NOTE | 2024-01-19 10:51 | ECG_ITS ---
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 Measurements Intervals [place] Rate: 85 P: 41 MI: 177 QRS: -40 QRSD: 125 T: 86 QT: 416 QTc: 497 Interpretive Statements SINUS RHYTHM LEFT AXIS DEVIATION [QRS AXIS < -30] MODERATE INTRAVENTRICULAR CONDUCTION DELAY [110+ ms QRS DURATION] NONSPECIFIC ST & T-WAVE ABNORMALITY INTERPRETATION BASED ON A DEFAULT AGE OF 40 YEARS Compared to ECG 01/19/2024 08:59:32 No significant changes Electronically Signed On 01-19-2024 15:34:51 CDT by Riley Kennedy M.D. [id number] f
--- NOTE | 2024-01-19 10:53 | XRR_ITS ---
PROCEDURE INFORMATION: Exam: XR Chest Exam date and time: 01/19/2024 11:07 AM Age: 63 years old Clinical indication: Cough and dyspnea; Additional info: Dyspnea/cough TECHNIQUE: Imaging protocol: Radiologic exam of the chest. Views: 1 view. COMPARISON: CT chest con [id number] 12/30/2023 4:14 PM FINDINGS: Lungs: Mild interstitial prominence diffusely likely chronic. No focal consolidation. Pleural spaces: Question small subpulmonic effusion on the right Heart/Mediastinum: cardiac silhouette is enlarged. Prior sternotomy. Bones/joints: See Heart/Mediastinum finding. XR/XR chest 1V portable [id number] IMPRESSION: Mild interstitial prominence diffusely likely chronic. No focal consolidation.
--- NOTE | 2024-01-19 10:53 | CTR_ITS ---
PROCEDURE INFORMATION: Exam: CT Abdomen And Pelvis With Contrast Exam date and time: 01/19/2024 12:29 PM Age: 63 years old Clinical indication: Abdominal pain; Generalized; Patient HX: Increased weakness and temp; Additional info: Abd pain TECHNIQUE: Imaging protocol: Computed tomography of the abdomen and pelvis with contrast. Radiation optimization: All CT scans at this facility use at least one of these dose optimization techniques: automated exposure control; mA and/or kV adjustment per patient size (includes targeted exams where dose is matched to clinical indication); or iterative reconstruction. Contrast material: OMNI; Contrast volume: 75 ml; Contrast route: INTRAVENOUS (IV); COMPARISON: CR XR hip LT 2-3V wo/w pel* [id number] 09/08/2017 12:29 PM RADIATION DOSE METRICS: Total DLP (mGy-cm): 1114.77 FINDINGS: Pleural spaces: Trace left pleural effusion. Liver: Normal appearance of the liver. Gallbladder and biliary ducts: No calcified stones or ductal dilation. Pancreas: No ductal dilation. Spleen: Unremarkable. Adrenal glands: Unremarkable. Kidneys and ureters: No hydronephrosis. Asymmetric mild right perinephric stranding. No obstruction. Stomach and bowel: Moderate colonic stool burden. No obstruction. Appendix: Normal appendix. Intraperitoneal space: No free air. No significant fluid collection. Vasculature: Right external iliac artery stent. Lymph nodes: No enlarged lymph nodes. Urinary bladder: The urinary bladder is decompressed with a Cop[place] catheter. Bladder diverticulum noted along the right side of the bladder. Reproductive: Unremarkable as visualized. Bones/joints: Status post median sternotomy. Soft tissues: Unremarkable. CT/CT abdomen pelvis w con* [id number] IMPRESSION: No acute findings.
[2024-01-19 11:10] LABS: Reflex Lactate Order REFLEX LACTIC ORDERD
--- NOTE | 2024-01-19 11:11 | PC.PHAR ---
[facility] STATES THEY HAVE NOT GIVEN ANY MEDICATIONS TODAY.
[2024-01-19 11:15] LABS: Glucose Urine UA Norm (Normal); Ketones Urine Negative (Negative); Protein Urine Trace (Negative); Specific Gravity, Urine 1.015 (1.005-1.030); Urine Appearance Cloudy (CLEAR); Urine Color Yellow (Yellow); pH Urine 5 (5-7)
[2024-01-19 11:16] LABS: Add Urine Culture? Yes; Add Urine Microscopic? YES; Bacteria Urine 3+ /hpf; Bilirubin Urine Neg (Negative); Blood Urine 3+ (Negative); Leukocyte Esterase Urine 2+ (Negative); Mucus Urine TRACE /hpf; Nitrate Urine Negative (Negative); Squamous Epithelial Cell Urine 0-4 /hpf (0-5); Urobilinogen Urine 1 mg/dL (Negative); WBC Urine TOO NUMEROUS TO CNT /hpf (0-5)
[2024-01-19 11:26] LABS: Troponin 5 2HR 88.03 ng/L (0-15); Troponin 5 2HR Delta -12.97 ABS# (0-10)
--- NOTE | 2024-01-19 11:56 | W.ED.WEAKNES ---
HPI - Weakness General: Chief complaint: Weakness Stated complaint: weakness Time Seen by Provider: 01/19/24 08:35 Source: patient and family Mode of arrival: EMS History of Present Illness: 63 yo male present to [facility] ER via EMs with his . He is able to give very limited history. His relates he is currently in the NH after a prolonged hospital stay at [facility] for resistatn UTI, he also has issues with urinary retention and usually self caths. Presents here with a fever of 102.6. Denies chest pain and relates mild adb cramping. No dyspnea. Has generally felt ill for the last coupel of days and has been progressively working. MD Complaint: generalized weakness Onset (ago): day(s) Duration: constant Location: generalized Severity: moderate Relieving factors: none Exacerbating factors: none Associated symptoms: Reports chills, decreased appetite, fever(s), myalgias and nausea; Denies chest pain, confusion, melena, diaphoresis, dysuria, easy bruising, headache(s), rash, short of breath, syncope or vomiting Review of Systems Const: Reports: fever(s) and chills; Denies: diaphoresis Card: Denies: chest pain or syncope Resp: Denies: dyspnea GI: Reports: nausea; Denies: vomiting or melena : Denies: dysuria Musc: Denies: neck pain or back pain Skin/Breast: Denies: rash Neuro: Denies: headache(s) or confusion Rigoberto/Lymph: Denies: easy bruising [facility] ED PFSH: Medical History (Updated 01/19/24 @ 13:52 by Abelardo Oliveira DO) Atrial fibrillation CAD (coronary artery disease) Physical Exam Const: ORIENTATION/CONSCIOUSNESS: Yes awake HENMT: COMMON NORMALS: normocephalic, atraumatic and hearing grossly normal bilaterally HEAD & SCALP: normocephalic and atraumatic Resp: COMMON NORMALS: normal respiratory effort, No retractions, No use of accessory muscles and clear to auscultation bilaterally AUSCULTATION: clear to auscultation bilaterally Cardio: COMMON NORMALS: regular rate, regular rhythm and No murmurs present (Cardio) RATE: regular rate RHYTHM: regular rhythm GI: COMMON NORMALS: No hepatosplenomegaly present AUSCULTATION: Yes normoactive bowel sounds PALPATION: Yes Tenderness to palpation present (GI) (suprapubic), No Guarding due to palpation present (GI) and Yes No hepatosplenomegaly present Extremity: COMMON NORMALS: normal to inspection, capillary refill normal, no clubbing, cyanosis or edema, no calf tenderness and no pedal edema Skin: COMMON NORMALS: no rashes or lesions noted GENERAL SKIN EXAM: no rashes or lesions noted Course Vital Signs: Vital signs: Vital Signs Temperature 102.6 F H 01/19/24 08:30 Pulse Rate 76 01/19/24 13:50 Respiratory Rate 16 01/19/24 13:50 Blood Pressure 104/62 01/19/24 13:50 Pulse Oximetry 94 01/19/24 13:50 Oxygen Delivery Me thod Nasal Cannula 01/19/24 12:05 Oxygen Flow Rate 2 01/19/24 12:05 MDM - Weakness Medical Decision Making Patient acutely septic labs and imaging reviewed. Patient was given sepsis bolus started on antibiotics and cultures have been done. Started on meropenem based on the known fact that he has resistant UTIs in the past he will need broader spectrum coverag likely due to his previous Pseudomonas infection. We have tried to get culture results from [facility] however due to a nationwide computer outage this may be difficult. Have discussed with Dr. York the hospitalist. CT of the abdomen and pelvis was normal showing no acute findings. Patient did have urinary retention and significant urinary output with placement of Copeland. Will admit to the ICU. Lab Data 01/19/24 09:09 01/19/24 09:09 Radiology Impressions Abdomen/Pelvis CT 01/19/24 10:53 IMPRESSION: No acute findings. Chest X-Ray 01/19/24 10:53 IMPRESSION: Mild interstitial prominence diffusely likely chronic. No focal consolidation. Laboratory Results WBC 13.57 10^3/uL (3.29-11.43) H 01/19/24 09:09 RBC 4.78 10^6/uL (3.85-5.65) 01/19/24 09:09 Hgb 13.80 g/dL (11.27-16.99) 01/19/24 09:09 Hct 43.9 % (37-53) 01/19/24 09:09 MCV 91.8 fl (82-101) 01/19/24 09:09 MCH 28.9 pg (27-33) 01/19/24 09:09 MCHC 31.4 g/dL (30-55) 01/19/24 09:09 RDW 14.6 % (12.1-15.1) 01/19/24 09:09 Plt Count 187 10^3/cmm (157-399) 01/19/24 09:09 MPV 11.2 fL (7.4-10.4) H 01/19/24 09:09 Neut % (Auto) 81.7 % 01/19/24 09:09 Lymph % (Auto) 9.3 % 01/19/24 09:09 [place] % (Auto) 7.8 % 01/19/24 09:09 Eos % (Auto) 0.1 % 01/19/24 09:09 Baso % (Auto) 0.4 % 01/19/24 09:09 Neut # (Auto) 11.09 10^3/uL (1.8-7.7) H 01/19/24 09:09 Lymph # (Auto) 1.3 10^3/uL (0.8-4.8) 01/19/24 09:09 [place] # (Auto) 1.1 10^3/uL (0.2-0.9) H 01/19/24 09:09 Eos # (Auto) 0.0 10^3/uL (0.0-0.8) 01/19/24 09:09 Baso # (Auto) 0.1 10^3/uL (0.0-0.1) 01/19/24 09:09 Nucleated RBC % (auto) 0 % 01/19/24 09:09 Nucleated RBCs # 0.0 /100WBC 01/19/24 09:09 Specimen Type Arterial 01/19/24 09:10 Sample Site Radial, left 01/19/24 09:10 ABG pH 7.48 (7.35-7.45) H 01/19/24 09:10 ABG pCO2 33.9 mmHg (35-45) L 01/19/24 09:10 ABG pO2 65.5 mmHg (80.0-100.0) L 01/19/24 09:10 ABG PO2/FiO2 Ratio 311 01/19/24 09:10 ABG HCO3 25.4 mmol/L (22-26) 01/19/24 09:10 ABG O2 Saturation 94.4 01/19/24 09:10 ABG Base Excess 2.3 mmol/L (-2.0-2.0) H 01/19/24 09:10 Ross Test Pos 01/19/24 09:10 A-a O2 Gradient 5.5 mmHg (5-10) 01/19/24 09:10 Hematocrit 42.7 % (42-52) 01/19/24 09:10 Hgb O2 Saturation 93.8 % (95-100) L 01/19/24 09:10 Carboxyhemoglobin 1.6 %THgb (0.4-20.1) 01/19/24 09:10 Methemoglobin < 0.0 % (0.4-1.5) L 01/19/24 09:10 Total Hemoglobin 13.9 g/dL (14-18) L 01/19/24 09:10 Sodium 137.0 mmol/L (131-143) 01/19/24 09:10 Potassium 3.8 mmol/L (3.5-5.0) 01/19/24 09:10 Glucose 187.0 mg/dL (70-115) H 01/19/24 09:10 Ionized Calcium 1.2 mmol/L (1.1-1.4) 01/19/24 09:10 O2 Delivery Device Room air 01/19/24 09:10 FiO2 21.0 % 01/19/24 09:10 Substation Operator Conversion ID Cak 01/19/24 09:10 Sodium 136 mmol/L (136-145) 01/19/24 09:09 Potassium 4.1 mmol/L (3.5-5.1) 01/19/24 09:09 Chloride 99 mmol/L (98-107) 01/19/24 09:09 Carbon Dioxide 21 mmol/L (22-29) L 01/19/24 09:09 Anion Gap 20.1 (5-19) H 01/19/24 09:09 BUN 14 mg/dL (8-23) 01/19/24 09:09 Creatinine 0.9 mg/dL (0.7-1.2) 01/19/24 09:09 GFR Calculation 85.2 mL/min (90-130) L 01/19/24 09:09 Glucose 202 mg/dL (65-115) H 01/19/24 09:09 Calculated Osmolality 288 mOsm/kg (285-295) 01/19/24 09:09 Lactic Acid 3.0 mmol/L (0.5-2.2) H 01/19/24 09:09 Lactic Acid (Sepsis) 4.5 mmol/L (0.5-2.2) H* 01/19/24 12:06 Calcium 8.4 mg/dL (8.5-10.5) L 01/19/24 09:09 Magnesium 1.9 mg/dL (1.7-2.3) 01/19/24 09:09 Total Bilirubin 0.8 mg/dL (0.15-1.2) 01/19/24 09:09 AST 16 U/L (0-40) 01/19/24 09:09 ALT 15 U/L (0-41) 01/19/24 09:09 Alkaline Phosphatase 114 U/L (40-130) 01/19/24 09:09 Creatine Kinase 137 U/L (39-308) 01/19/24 09:09 Troponin T Baseline 101 ng/L (0-15) H* 01/19/24 09:09 Troponin T 120 Minute 88.03 ng/L (0-15) H 01/19/24 11:05 Delta Troponin T -12.97 ABS# (0-10) L 01/19/24 11:05 Total Protein 6.4 g/dL (6.6-8.7) L 01/19/24 09:09 Albumin 3.3 g/dL (3.5-5.2) L 01/19/24 09:09 Globulin 3.1 g/dL (1.3-4.6) 01/19/24 09:09 Lipase 13 U/L (13-60) 01/19/24 09:09 Urine Color Yellow (Yellow) 01/19/24 09:28 Urine Appearance Cloudy (CLEAR) A 01/19/24 09:28 Urine pH 5 (5-7) 01/19/24 09:28 Ur Specific [place] 1.015 (1.005-1.030) 01/19/24 09:28 Urine Protein Trace (Negative) 01/19/24 09:28 Urine Glucose (UA) Norm (Normal) 01/19/24 09:28 Urine Ketones Negative (Negative) 01/19/24 09:28 Urine Blood 3+ (Negative) H 01/19/24 09:28 Urine Nitrate Negative (Negative) 01/19/24 09:28 Urine Bilirubin Neg (Negative) 01/19/24 09:28 Urine Urobilinogen 1 mg/dL (Negative) H 01/19/24 09:28 Ur Leukocyte Esterase 2+ (Negative) H 01/19/24 09:28 Urine RBC 10-15 /hpf (0-2) H 01/19/24 09:28 Urine WBC Too numerous to cnt /hpf (0-5) H 01/19/24 09:28 Ur Squamous Epith Cells 0-4 /hpf (0-5) H 01/19/24 09:28 Amorphous Sediment Not Reportable 01/19/24 09:28 Urine Bacteria 3+ /hpf (NONE) H 01/19/24 09:28 Urine Mucus Trace /hpf 01/19/24 09:28 Adenovirus (PCR) Not detected (NOT DETECT) 01/19/24 09:19 C. pneumoniae DNA (PCR) Not detected (NOT DETECT) 01/19/24 09:19 Coronavirus 229E (PCR) Not detected (NOT DETECT) 01/19/24 09:19 Human Metapneumovir PCR Not detected (NOT DETECT) 01/19/24 09:19 Influenza A (H1) PCR Not detected (NOT DETECT) 01/19/24 09:19 Influ A (H1/09) PCR Not detected (NOT DETECT) 01/19/24 09:19 Influenza A (H3) PCR Not detected (NOT DETECT) 01/19/24 09:19 Influenza Type A (PCR) Not detected (NOT DETECT) 01/19/24 09:19 Influenza Type B (PCR) Not detected (NOT DETECT) 01/19/24 09:19 M. pneumoniae (PCR) Not detected (NOT DETECT) 01/19/24 09:19 Parainfluenza 1 (PCR) Not detected (NOT DETECT) 01/19/24 09:19 Parainfluenza 2 (PCR) Not detected (NOT DETECT) 01/19/24 09:19 Parainfluenza 3 (PCR) Not detected (NOT DETECT) 01/19/24 09:19 Parainfluenza 4 (PCR) Not detected (NOT DETECT) 01/19/24 09:19 RSV Type A (PCR) Not detected (NOT DETECT) 01/19/24 09:19 RSV Type B (PCR) Not detected (NOT DETECT) 01/19/24 09:19 Entero/Rhino (PCR) Not detected (NOT DETECT) 01/19/24 09:19 SARS-CoV-2 (PCR) Not detected (NOT DETECT) 01/19/24 09:19 All radiology interpretation(s) finalized by discharge Critical Care Time Critical Care Time: Critical Care Time: Yes Total Critical Care Time: 40 Attestation: The high probability of a clinically significant, sudden or life threatening deterioration of the patient's [cardiovascular genitourinary sepsis ] system(s) required my full and direct attention, intervention and personal management. The critical care time is as shown. This time is in addition to time spent performing any reported procedures but includes the following: [x] Data and vital sign review and interpretation [x] Patient assessment, examination and intervention [x] Documentation [x] Medication orders and managementThe high probability of a clinically significant, sudden or life threatening deterioration of the patient's cardiovascular genitourinary sepsis system(s) required my full and direct attention, intervention and personal management. The critical care time is as shown. This time is in addition to time spent performing any reported procedures but includes the following: [x] Data and vital sign review and interpretation [x] Patient assessment, examination and intervention [x] Documentation [x] Medication orders and management Discharge Plan Discharge Patient Disposition: Admitted As Inpatient Clinical Impression: Sepsis, Cystitis Condition: Stable Coding Level of Care Code ED Resident Care Supervisor for Allan Person
[2024-01-19] MEDS: diphenhydrAMINE 50 mg/mL SDV 1mL IVP (11:57)
[2024-01-19] MEDS: methylPREDNISolone sod succ 40 mg/mL INJ IVP (11:59)
[2024-01-19 12:20] LABS: Adenovirus Not Detected (NOT DETECT); Chlamydia Pneumoniae Not Detected (NOT DETECT); Coronavirus 229E,HKU1,NL63,OC4 Not Detected (NOT DETECT); Human Metapneumovirus Not Detected (NOT DETECT); Human Rhinovirus/Enterovirus Not Detected (NOT DETECT); Influenza A Not Detected (NOT DETECT); Influenza A H1 Not Detected (NOT DETECT); Influenza A H1-2009 Not Detected (NOT DETECT); Influenza A H3 Not Detected (NOT DETECT); Influenza B Not Detected (NOT DETECT); Mycoplasma Pneumoniae Not Detected (NOT DETECT); Parainfluenza Virus Type 1 Not Detected (NOT DETECT); Parainfluenza Virus Type 2 Not Detected (NOT DETECT); Parainfluenza Virus Type 3 Not Detected (NOT DETECT); Parainfluenza Virus Type 4 Not Detected (NOT DETECT); Respiratory Syncytial Virus A Not Detected (NOT DETECT); Respiratory Syncytial Virus B Not Detected (NOT DETECT); SARS-COV-2 Not Detected (NOT DETECT)
[2024-01-19 12:30] LABS: Lactic Acid level (Lactate) 4.5 mmol/L (0.5-2.2)
[2024-01-19] MEDS: iohexol 350 mg/mL 500 mL Btl (per mL) IV (12:34)
--- NOTE | 2024-01-19 14:33 | P.HP_ITS ---
Providers/Chief Complaint 2 Admitting Physician: Neptali York Primary Care Provider: Justin May MD Chief Complaint: weakness History of Present Illness Pleasant 63-year-old gentleman with history of urinary retention, following with urology, history of CAD, CABG, following with cardiology at [facility] in [place], with history of recurrent urinary infections, hospitalization for ESBL infection not long ago at [facility], after which she had improved, but after returning home after some time is doing worse, with malaise, also with some confusion which his states happens during infections and also in ER with finding of elevated troponin in addition to fever 102.6, leukocytosis 13.5, urinalysis suggestive of infection. Prior cultures with ESBL E. coli back in December. In ER he is found retaining urine, urinary catheter was placed, 600 mL let out and Copeland capped to avoid overly rapid emptying. He does have history of urinary retention, he is supposed to be self catheterizing intermittently. Seems family sometimes are concerned about infection and so he has not been self catheterizing regularly. He does not smoke, does not drink alcohol. Occasionally for anxiety takes 5 mg of Valium. Sometimes for pain takes oxycodone. Review of Systems 2 Const: Reports: malaise ENMT: Denies: throat pain Card: Denies: chest pain, edema, pre-syncope or dyspnea on exertion Resp: Denies: dyspnea, productive cough, change in phlegm color or hemoptysis GI: Denies: abdominal pain, nausea, vomiting, diarrhea, constipation, hematochezia or melena : Denies: flank pain, difficulty urinating, urinary frequency or hematuria Musc: Denies: back pain, joint swelling or joint redness Skin/Breast: Denies: rash or new lesions Neuro: Reports: confusion (Mild); Denies: headache(s) Medications/Allergies Home Medications Medication Instructions Recorded Confirmed Last Taken Type amiodarone 200 mg tablet 200 mg PO DAILY 10/18/23 01/19/24 01/18/24 History apixaban 5 mg tablet (Eliquis) 5 mg PO BID 10/18/23 01/19/24 01/18/24 History atorvastatin 40 mg tablet 40 mg PO DAILY 10/18/23 01/19/24 01/18/24 History buspirone 10 mg tablet 10 mg PO PRN PRN Anxiety 04/01/19/24 10/17/23 History furosemide 40 mg tablet 40 mg PO DAILY 10/18/23 01/19/24 01/18/24 History insulin glargine 100 unit/mL (3 See Rx Instructions .Route .COMPLEX 10/18/23 01/19/24 01/18/24 History mL) subcutaneous pen (Lantus Solostar U-100 Insulin) insulin lispro 100 unit/mL See Rx Instructions .Route .COMPLEX 10/18/23 01/19/24 01/18/24 History subcutaneous pen metoprolol succinate 25 mg 12.5 mg PO DAILY 10/18/23 01/19/24 01/18/24 History tablet,extended release 24 hr spironolactone 25 mg tablet 25 mg PO DAILY 10/18/23 01/19/24 01/18/24 History tamsulosin 0.4 mg capsule 0.4 mg PO DAILY 10/18/23 01/19/24 01/18/24 History tizanidine 4 mg tablet 4 mg PO Q8H PRN Nausea 10/18/23 01/19/24 10/17/23 History acetaminophen 325 mg tablet 650 mg PO Q6H PRN Pain 01/19/24 01/19/24 Unknown History albuterol sulfate 90 mcg/actuation 1 puff inhalation Q4H PRN Wheezing 01/19/24 01/19/24 Unknown History aerosol inhaler bisacodyl 10 mg rectal suppository 10 mg TN DAILY PRN Constipation 01/19/24 01/19/24 Unknown History (Dulcolax (bisacodyl)) bisacodyl 5 mg tablet,delayed 10 mg PO BID PRN Constipation 01/19/24 01/19/24 Unknown History release (Dulcolax (bisacodyl)) bupropion HCl 100 mg tablet 100 mg PO BID 01/19/24 01/19/24 01/18/24 History clopidogrel 75 mg tablet 75 mg PO DAILY 01/19/24 01/19/24 01/18/24 History magnesium hydroxide 400 mg/5 mL 30 ml PO DAILY PRN Constipation 01/19/24 01/19/24 Unknown History oral suspension (Milk of Magnesia) melatonin 3 mg tablet 3 mg PO BEDTIME 01/19/24 01/19/24 01/18/24 History nitroglycerin 0.4 mg sublingual 0.4 mg sublingual Q5M PRN Chest 01/19/24 01/19/24 Unknown History tablet (Nitrostat) Pain ondansetron 4 mg disintegrating 4 mg PO Q8H PRN Nausea 01/19/24 01/19/24 Unknown History tablet oxycodone 5 mg tablet 5 mg PO Q4H PRN Pain 01/19/24 01/19/24 Unknown History sennosides 8.6 mg tablet (Senokot) 8.6 mg PO BID 01/19/24 01/19/24 01/18/24 History sodium phosphates 19 gram-7 118 ml TN DAILY PRN Constipation 01/19/24 01/19/24 Unknown History gram/118 mL enema (Fleet Enema) trazodone 100 mg tablet 100 mg PO BEDTIME 01/19/24 01/19/24 Unknown History Allergies Allergy/AdvReac Type Severity Reaction Status Date / Time Iodinated Contrast Media Allergy ADR-Vomitin Verified 10/18/23 14:14 g alprazolam [From Xanax] AdvReac Intermediate ADR-Halluci Unverified 01/19/24 16:22 nating PFSH Acute 2 PFSH: Medical History (Updated 01/19/24 @ 16:19 by Neptali York MD) Urinary retention UTI due to extended-spectrum beta lactamase (ESBL) producing Escherichia coli Atrial fibrillation CAD (coronary artery disease) Surgical History (Updated 01/19/24 @ 15:22 by Neptali York MD) Hx of CABG Social History (Updated 01/19/24 @ 15:22 by Neptali York MD) Alcohol intake: never Substance/Drug Use: never Household members: significant other Vitals/I&O/Wt Last Vital Signs Temp 102.6 F H 01/19/24 08:30 Pulse 80 01/19/24 14:20 Resp 19 H 01/19/24 14:15 BP 115/58 01/19/24 14:20 Pulse Ox 91 01/19/24 14:20 O2 Del Method Nasal Cannula 01/19/24 12:05 O2 Flow Rate 2 01/19/24 12:05 01/18/24 01/19/24 01/19/24 22:59 06:59 14:59 Intake Total 2549.41 / 2549.41 Balance 2549.41 / 2549.41 Weight last 48 hrs Weight 81.647 kg Physical Exam 2 Narrative: Accompanied by his life partner. Const: COMMON NORMALS: alert GENERAL APPEARANCE: cooperative O RIENTATION/CONSCIOUSNESS: Yes awake OTHER: Somnolent, irritable. Irritable by pump and monitor alarms. Intermittently answers questions. HENMT: COMMON NORMALS: oropharynx normal Neck/C-Spine: COMMON NORMALS: no JVD Resp: COMMON NORMALS: normal respiratory effort and clear to auscultation bilaterally AUSCULTATION: clear to auscultation bilaterally Cardio: COMMON NORMALS: no JVD, regular rhythm, S1 normal heart sound present, S2 normal heart sound present and No murmurs present (Cardio) RHYTHM: regular rhythm HEART SOUNDS: S1 normal heart sound present and S2 normal heart sound present GI: COMMON NORMALS: Normal to inspection, nondistended, normoactive bowel sounds present, Soft to palpation and non-tender PALPATION: Yes Soft to palpation Extremity: COMMON NORMALS: no joint enlargement and no pedal edema N ARRATIVE EXTREMITY EXAM: No rashes. Tattoos. Neuro: COMMON NORMALS: patient oriented x3 and moves all extremities S ENSORIUM/ORIENTATION: Yes alert Skin: COMMON NORMALS: no rashes or lesions noted GENERAL SKIN EXAM: no rashes or lesions noted Urinary Catheter Management: Copeland: Cath Placed During This Visit: yes Urinary Catheter Date of Insertion: 01/19/24 Urinary Catheter Time of Insertion: 11:45 Sepsis: Is patient septic: Yes Focused sepsis exam: Warm, perfused, no mottling or cyanosis. Good capillary refill. Date exam was performed: 01/19/24 Time exam was performed: 13:30 Data 01/19/24 09:09 01/19/24 09:09 Micro: Microbiology 01/19/24 09:09 Blood Culture - Preliminary Blood SPECIMEN COLLECTED 01/19/24 09:13 Blood Culture - Preliminary Blood SPECIMEN COLLECTED A&P Assessment and plan (1) Sepsis: Presenting with severe sepsis with leukocytosis 13.57, fever 102.6, tachypnea 22, with acute encephalopathy, altered mental status with delirium secondary to sepsis, ascending/complicated urinary tract infection with pyelonephritis, with suspected MDRO with recent infection with ESBL coli. With demand ischemia, troponin ovation up to 101. With lactic acidosis 4.5. Blood cultures collected, started empirically antibiotic with meropenem. Received resuscitation fluid bolus 30 cc/kg. Continue meropenem, monitor for risk of seizure. Follow-up urine and blood cultures. Reviewed vitals, CBC, ABG, CMP, lactic acid, UA, lipase, troponin, magnesium, respiratory viral panel, chest x-ray, abdomen CT, ER note, discussed with ER provider. ABG with mixed picture, metabolic alkalosis, additionally with anion gap metabolic acidosis. Lactic acid worsening up to 4.5. Obtain NICOM assessment for fluid responsiveness. With sepsis, CAD, possible NSTEMI, demand ischemia with troponin elevation, with potential resistant organism admission for treatment in intensive care unit with high chance of progression to septic shock, hemodynamic instability, [place], cardiogenic shock and other complications. (2) Acute encephalopathy: Acute metabolic encephalopathy with delirium secondary to sepsis, complicated urinary tract infection. He is normally sharp and oriented. Currently with mild disorientation, somnolent, answers only some questions. Getting restless. Complaining of monitor stickers. Very sensitive to IV and monitor alarms. Discussed with nursing staff to adjust alarm and turn it off if possible in the room. Does get anxiety and uses 5 mg Valium intermittently at home. Sometimes uses pain medication with oxycodone. He does not drink alcohol, no recreational drug use. His states he is very intolerant of Xanax it causes him to have delusions. (3) Complicated UTI (urinary tract infection): Severe complicated urinary tract infection with sepsis with systemic effects, reviewed urinalysis, CT abdomen pelvis, prior urine cultures, previously with resistant organisms including recently in December with ESBL E. coli, previously also noted and discussed with patient and his pseudomonal infection only intermediate sensitivity to Carbapenem. Discussed with him treatment with meropenem at current time as above. Follow-up urine and blood cultures. (4) Atrial fibrillation: Normally on Eliquis, amiodarone, low-dose metoprolol. Currently transition to heparin drip. Continue low-dose metoprolol. In ER additionally nonsustained ventricular tachycardia episodes, for now switched over to amiodarone drip. (5) CAD (coronary artery disease): Possible NSTEMI. Reviewed vitals, troponin series, EKG, ER note, discussed with ER provider. He is started on heparin drip. Troponin level elevated up to 102, follow-up troponin 88, decreasing trend. No chest pain. He does have history of CAD. Complete troponin EKG series. Monitor on telemetry with risk of arrhythmia. Discussed with his life partner, with sepsis, do suspect component of demand ischemia, in addition previous troponin appears to be in similar range, which may raise concern of progression of coronary disease. He would at some point benefit from further risk suffocation, stress testing and will need to follow-up with cardiology. He has not been missing medication as from what they are telling me. Status post CABG, continue Plavix, Eliquis resumed after discharge, currently heparin drip. Continue statin. (6) Prolonged QT interval: On review of EKG noted prolonged QT. Repeat EKG is requested for tomorrow and day after. Monitor on telemetry. Follow-up potassium levels. Monitor heart rates. At risk of life-threatening arrhythmia. Plan Urinary retention: At home uses intermittent catheterization. Found to be retaining in the ER. Appears he and family were worried about infection and has not been self-catheterizing regularly possibly due to retention. No hydronephrosis on CT. Maintain Copeland catheter currently. Continue tamsulosin. After removal resume self-catheterization. Discussed with his partner to continue catheterization otherwise urine retention may risk further complications including urinary infection, kidney injury, etc. Continue follow- up with urology. Attestations 2 Medical Necessity Statement*: Admission of over 2 midnights anticipated for assessment management of complicated UTI with severe sepsis, including possible NSTEMI versus demand ischemia with troponin elevation and gentleman with underlying CAD, complicated UTIs with ESBL MDRO's. Coding Level of Care Code Critical Care >/= 30 minutes Critical care time (in minutes): 35 The high probability of a clinically significant, sudden or life threatening deterioration, as referenced in this documentation, required my full and direct attention, intervention and personal management. The critical care time shown is in addition to time spent performing any reported separately billable procedures and includes the following: [x] Data and vital sign review and interpretation [x ] Patient assessment, examination and intervention [x] Medication orders and management [x] Patient/Family updates as able [x] Care Coordination and Documentation. Diagnoses Sepsis A41.9 Acute encephalopathy G93.40 Complicated UTI (urinary tract infection) N39.0 Atrial fibrillation I48.91 CAD (coronary artery disease) I25.10 Prolonged QT interval R94.31
--- NOTE | 2024-01-19 14:51 | ECG_ITS ---
[facility] Test Date: 2024-01-19 Pat Name: Nunu Hernandez Department: Room: [facility] Gender: Male Addiction Specialist: : [id number] Requested By: Abelardo Massey Order Number: [id number] Heidi MD: Riley Kennedy M.D. Measurements Intervals Jackson Rate: 71 P: 38 WI: 203 QRS: -33 QRSD: 125 T: 76 QT: 446 QTc: 485 Interpretive Statements SINUS RHYTHM POSSIBLE LEFT ATRIAL ENLARGEMENT [-0.1mV P-WAVE IN V1/V2] LEFT AXIS DEVIATION [QRS AXIS < -30] MODERATE INTRAVENTRICULAR CONDUCTION DELAY [110+ ms QRS DURATION] NONSPECIFIC ST & T-WAVE ABNORMALITY PROLONGED QT INTERVAL Compared to ECG 01/19/2024 10:03:29 Prolonged QT interval now present T-wave abnormality still present Electronically Signed On 01-19-2024 15:35:08 CDT by Riley Kennedy M.D. [id number]
--- NOTE | 2024-01-19 15:15 | PC.NURSE ---
Pt admitted to ICU from ED. Heparin and amio infusing without difficulty. Pt lethargic, Alert to self and time. Upon transferring him to ICU, staff were explaining t o pt and attempting to assist him to turn to straighten wadded bed linens. Pt balled up his left fist and swung out to right. Verbal de escalation ensued. Pt calmed and allowed linens to be adjusted.
[2024-01-19 15:39] LABS: Troponin 5 6HR 81.86 ng/L (0-15)
[2024-01-19 15:41] LABS: Troponin 5 6HR Delta -19.14 ng/L (0-12)
[2024-01-19] MEDS: diazePAM 5 mg Tablet PO (16:01)
[2024-01-19] MEDS: pantoprazole 40 mg SDV IVP (16:05)
[2024-01-19] MEDS: sodium chloride 0.9% 1,000 ML 100 ML IV (16:05)
[2024-01-19] MEDS: MEROPENEM 2,000 MG in sodium chloride 0.9% (plus) 50 ML 100 MG IV (17:36)
[2024-01-19] MEDS: sennosides 8.6 mg Tablet PO (17:38)
[2024-01-19] MEDS: buPROPion SR (12 HR) 100 mg Tablet PO (17:38)
--- NOTE | 2024-01-19 18:15 | PC.NURSE ---
Shift summary: Pt has been mostly resting with his eyes closed since arrival. He was starting to get agitated about his lines, etc. and yelled out twice. Valium admin for anxiety. No further agitation noted. Heparin, Amiodarone and IVF infusing without difficulty. He had a Bm in Ed per report, further pericare provided upon his arrival to ICU. Started contact precautions due to hx of ESBL within this past month. Urine output of 1300ml note, of clear yellow urine. Pt refused evening m eal tray.
[2024-01-19 19:05] LABS: Partial Thromboplastin Time 54.5 SECONDS (23.9-36.7)
[2024-01-19 21:37] LABS: Glucose Point of Care 324 mg/dL (70-110)
[2024-01-19] MEDS: oxyCODONE 5 mg IR Tab/Cap PO (21:50)
[2024-01-19] MEDS: trazodone 100 mg Tablet PO (21:50)
[2024-01-19] MEDS: insulin glargine 100 units/1 mL 18 UNIT SUBCUT (22:01)
[2024-01-20] VITALS (29 sets, daily range): BP systolic 84–113; BP diastolic 44–68; PULSE 55–69; RESP 0–25; TEMP 36.4; O2SAT 84–97; BMI 25.1
--- NOTE | 2024-01-20 00:21 | PC.NURSE ---
Pt educated on purpose for turning/changing positions. Pt educated in risk of pressure wounds. Pt continues to not want to move.
[2024-01-20] MEDS: MEROPENEM 2,000 MG in sodium chloride 0.9% (plus) 50 ML 100 MG IV ×3 (01:50→17:50)
[2024-01-20] MEDS: sodium chloride 0.9% 1,000 ML 100 ML IV (01:50)
[2024-01-20 02:17] LABS: Basophils % 0.1 %; Hematocrit 38.3 % (37-53); Lymphocytes # 1.4 10^3/uL (0.8-4.8); Lymphocytes % 12.9 %; Mean Corpuscular HGB Conc 31.9 g/dL (30-55); Mean Corpuscular Hemoglobin 28.5 pg (27-33); Mean Corpuscular Volume 89.5 fl (82-101); Mean Platelet Volume 11.3 fL (7.4-10.4); Monocytes # 0.5 10^3/uL (0.2-0.9); Neutrophils # 8.56 10^3/uL (1.8-7.7); Neutrophils % 81.5 %; Nucleated Red Blood Cells % 0 %; Platelet Count 161 10^3/cmm (157-399); Red Blood Count 4.28 10^6/uL (3.85-5.65); Red Cell Distribution Width 14.5 % (12.1-15.1)
[2024-01-20 02:34] LABS: Alanine Aminotransferase 14 U/L (0-41); Albumin Level 2.7 g/dL (3.5-5.2); Alkaline Phosphatase 94 U/L (40-130); Aspartate Amino Transferase 14 U/L (0-40); Blood Urea Nitrogen 12 mg/dL (8-23); Calcium 8.4 mg/dL (8.5-10.5); Carbon Dioxide 22 mmol/L (22-29); Chloride 105 mmol/L (98-107); Creatinine Clr Calc Pharmacy 151.2287; Globulin 3.2 g/dL (1.3-4.6); Glomerular Filtration Rate 136.1 mL/min (90-130); Glucose 255 mg/dL (65-115); Magnesium 1.9 mg/dL (1.7-2.3); Osmolality Calculated 294 mOsm/kg (285-295); Sodium 138 mmol/L (136-145); Total Bilirubin 0.4 mg/dL (0.15-1.2); Total Protein 5.9 g/dL (6.6-8.7)
[2024-01-20 02:38] LABS: Partial Thromboplastin Time 80.6 SECONDS (23.9-36.7)
[2024-01-20] MEDS: oxyCODONE 5 mg IR Tab/Cap PO ×3 (02:57→19:58)
--- NOTE | 2024-01-20 03:27 | PC.NURSE ---
Pt has been calm all night. Pt did not want to be bothered and refused to turn or allow this nurse to assist him in turning. Pt woke up when IV pump was alarming downstream occlusion . This nurse entered pt room and stated, You're beeping! Let me see if there is a kink somewhere. Pt stated, Yeah, it's right here. Pt held up IV tubing to show that he had tied a knot in the tubing. Pt stated he wanted this thing fucking unhooked! This nurse stated that IV was giving him fluids, antibiotics, and heparin (further explaining why heparin was being given). Pt responded, Fine, then turn this shit off. What's this? While gesturing to the left AC IV. This nurse eucated pt that Left AC IV had amioderone running to help control his heart rate/rhythm. Pt stated, Yeah I was that shit turned off! Pt began trying to tie up amio tubing and pull at his IV. This nurse told pt to wait just a few seconds and it could be turned off for him. Pt stated, I can turn it off right now! While continuing to pull at the line. This nurse was able to get pt to stop pulling on the tubing by stating, Please stop, I am going to that side of the bed to shut it off. If you pull it out now, it is going to make a mess for me to clean up. This nurse proceeded to turn off amio gtt and unhook it from pt. Nurse educated pt once again what the medicine was for and pt stated, I don't fucking want it. Turn it off, so when my heart messes up, I will just ! This nurse asked pt if he was in pain and pt stated he is always in pain. This nurse asked to rate pain level and asked if pt would like pain medicine. Pt stated he would. This nurse left the room to get valium and oxycodone (see MAR). Pt refused to take valium, but took the oxycodone with water at bedside. Pt held up arms and stated, Look what that shit is doing to my hands! Ya know what? Turn that shit off too. I'm fucking leaving now! This nurse stated, It is 330 AM, you don't have a ride, can we wait until the morning to leave? Pt stated, Give me my fucking phone. I'm going to call a ride! I'm getting the hell out of here! Charge nurse, Renata notified of situation. Pt significant other, Erlinda, contacted. Dr. Ferro contacted. Pt ripped off fall band, allergy band, and ID band. Significant other talked to pt on his cell phone, then called unit to talk to this nurse. Erlinda stated pt wanted to take valium, needed to sit on the bedpan, and needed his call light in reach. When this nurse entered room to give valium, pt had gotten off of the bedpan himself. This nurse gave pt new call light. Pt saw valium and stated, What the hell is this? You tried to give this to me earlier. Renata and this nurse both confurmed for pt that the medicine was valium. Pt stated, I'm not buying it. Pt took valium.
[2024-01-20] MEDS: diazePAM 5 mg Tablet PO ×2 (03:30→18:34)
--- NOTE | 2024-01-20 04:09 | PC.NURSE ---
Pt concerned fluids are causing overload. Pt home lasix was held by admitting dr because of BP and diagnosis of sepsis. Overnight BP has been 90's systolic, so Dr. Ferro ordered to continue to hold home lasix, but to also hold fluids and order a stat lactic acid level.
[2024-01-20 04:41] LABS: Lactate (Lactic Acid level) 2.2 mmol/L (0.5-2.2)
[2024-01-20] MEDS: heparin drip 25,000 UNIT/500 ML PREMIX 23 UNIT IV (05:12)
[2024-01-20 06:33] LABS: Glucose Point of Care 249 mg/dL (70-110)
[2024-01-20] MEDS: insulin glargine 100 units/1 mL 20 UNIT SUBCUT (06:56)
[2024-01-20] MEDS: metoprolol succinate ER (24 HR) 25 mg Tablet 12.5 MG PO (10:02)
[2024-01-20] MEDS: sennosides 8.6 mg Tablet PO (10:02)
[2024-01-20] MEDS: spironolactone 25 mg Tablet PO (10:02)
[2024-01-20] MEDS: tamsulosin 0.4 mg Capsule PO (10:02)
[2024-01-20] MEDS: clopidogrel 75 mg Tablet PO (10:03)
[2024-01-20] MEDS: atorvastatin 40 mg Tablet PO (10:03)
[2024-01-20] MEDS: buPROPion SR (12 HR) 100 mg Tablet PO ×2 (10:03→17:50)
--- NOTE | 2024-01-20 10:48 | ECG_ITS ---
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 Measurements Intervals [place] Rate: 61 P: -26 MN: 155 QRS: -24 QRSD: 123 T: 89 QT: 370 QTc: 373 Interpretive Statements SINUS RHYTHM POSSIBLE LEFT ATRIAL ENLARGEMENT [-0.1mV P-WAVE IN V1/V2] MODERATE INTRAVENTRICULAR CONDUCTION DELAY [105+ ms QRS DURATION, 80+ ms Q/S IN V1/V2, NO Q AND 60+ ms R IN I/aVL/V5/V6] NONSPECIFIC T-WAVE ABNORMALITY Compared to ECG 01/19/2024 15:06:16 Left-axis deviation no longer present Prolonged QT interval no longer present T-wave abnormality still present Electronically Signed On 01-21-2024 7:12:04 CDT by Riley Kennedy M.D. [id number]
--- NOTE | 2024-01-20 13:55 | PC.NURSE ---
Transfer Note Patient transferred to C[facility] room 104 from ICU via bed. Handoff report given to NIALL Alberto. Patient oriented to environment and equipment. Covering service notified. Orders reviewed and will continue to monitor. Family notified of patient moving rooms. Upon transfer patient is alert/oriented x4 on room air. All patient belongings transferred and placed at bedside with patient at bedside.
[2024-01-20] MEDS: pantoprazole 40 mg SDV IVP (15:29)
[2024-01-20] MEDS: amiodarone 200 mg Tablet PO (15:52)
--- NOTE | 2024-01-20 16:06 | P.PN_ITS ---
Subjective 2 Subjective: Today he states he is doing better. He states that last night he had a rough night, and may have lost his temper for which he apologizes. He denies any chest pain or pressure. Has no trouble breathing. Vitals/I&O/Wt Last Vital Signs Temp 97.5 F L 01/20/24 13:59 Pulse 64 01/20/24 14:00 Resp 14 01/20/24 13:59 BP 110/67 01/20/24 13:59 Pulse Ox 94 01/20/24 13:59 O2 Del Method Room Air 01/20/24 13:59 O2 Flow Rate 2 01/19/24 12:05 01/20/24 01/20/24 01/20/24 06:59 14:59 22:59 Intake Total 1722.636 / 4603.313 1337.897 / 1337.897 Output Total 700 / 2000 Balance 1022.636 / 2603.313 1337.897 / 1337.897 Weight last 48 hrs Weight 88.813 kg Weight 88.813 kg Weight 81.647 kg Physical Exam 2 Const: COMMON NORMALS: patient oriented x3 and alert GENERAL APPEARANCE: c ooperative ORIENTATION/CONSCIOUSNESS: Yes awake OTHER: Awake and alert, lucid. Calm, pleasant and conversant. Intermittently answers questions. HENMT: COMMON NORMALS: oropharynx normal Neck/C-Spine: COMMON NORMALS: no JVD Resp: COMMON NORMALS: normal respiratory effort and clear to auscultation bilaterally AUSCULTATION: clear to auscultation bilaterally Cardio: COMMON NORMALS: no JVD, regular rhythm, S1 normal heart sound present, S2 normal heart sound present and No murmurs present (Cardio) RHYTHM: regular rhythm HEART SOUNDS: S1 normal heart sound present and S2 normal heart sound present GI: COMMON NORMALS: Normal to inspection, nondistended, normoactive bowel sounds present, Soft to palpation and non-tender PALPATION: Yes Soft to palpation Extremity: COMMON NORMALS: no joint enlargement and no pedal edema N ARRATIVE EXTREMITY EXAM: No rashes. Neuro: COMMON NORMALS: patient oriented x3 and moves all extremities S ENSORIUM/ORIENTATION: Yes alert Skin: COMMON NORMALS: no rashes or lesions noted GENERAL SKIN EXAM: no rashes or lesions noted Urinary Catheter Management: Copeland: Cath Placed During This Visit: yes Reason for Continuing Indwelling Catheter: Accurate Measurement of Urinary Output in Critically Ill Patients Urinary Catheter Date of Insertion: 01/19/24 Urinary Catheter Time of Insertion: 11:45 Data 01/20/24 02:08 01/20/24 02:08 Micro: Microbiology 01/19/24 09:28 Urine Culture - Preliminary Urine,Clean Catch Gram Negative Rods 01/19/24 09:09 Blood Culture - Preliminary Blood NEGATIVE TO DATE 01/19/24 09:13 Blood Culture - Preliminary Blood NEGATIVE TO DATE A&P Assessment and plan (1) Sepsis: Improving. Fever so far with improvement. Leukocytosis resolved on review of CBC, Reviewed CMP, magnesium, urine culture, blood culture. Urine culture with more than 100,000 gram-negative rods. Blood culture negative to date. Follow- up cultures. Continue meropenem, monitor for risk of seizure. With sepsis, CAD, demand ischemia with troponin elevation, with potential resistant organism admission for treatment in intensive care unit with high chance of progression to septic shock, hemodynamic instability, SC, cardiogenic shock and other complications. Stop IV fluid. (2) Acute encephalopathy: Resolved with improvement in sepsis. Reassess mental status. Stop Precedex. Acute metabolic encephalopathy with delirium secondary to sepsis, complicated urinary tract infection. He is normally sharp and oriented. Currently with mild disorientation, somnolent, answers only some questions. Getting restless. Complaining of monitor stickers. Very sensitive to IV and monitor alarms. Discussed with nursing staff to adjust alarm and turn it off if possible in the room. Does get anxiety and uses 5 mg Valium intermittently at home. Sometimes uses pain medication with oxycodone. He does not drink alcohol, no recreational drug use. His states he is very intolerant of Xanax it causes him to have delusions. (3) Complicated UTI (urinary tract infection): Complicated UTI with right pyelonephritis, nonobstructive. Improving sepsis. More than 100,000 gram-negative rods on review of her urine culture. Follow-up. Continue meropenem. Severe complicated urinary tract infection with sepsis with systemic effects, reviewed urinalysis, CT abdomen pelvis, prior urine cultures, previously with resistant organisms including recently in December with ESBL E. coli, previously also noted and discussed with patient and his pseudomonal infection only intermediate sensitivity to Carbapenem. Discussed with him treatment with meropenem at current time as above. Follow-up urine and blood cultures. (4) Atrial fibrillation: Switch to oral amiodarone. Normally on Eliquis, amiodarone, low-dose metoprolol. Currently transition to heparin drip. Continue low-dose metoprolol. In ER additionally nonsustained ventricular tachycardia episodes, for now switched over to amiodarone drip. (5) CAD (coronary artery disease): He remains free of chest pain. Reviewed troponin series, discussed with him, moderate elevation, downtrending troponins. Discussed cannot exclude progression of coronary disease, demand ischemia, will benefit from nonemergent assessment by stress testing, follow-up with cardiology. Status post CABG, continue Plavix, Eliquis resumed after discharge, currently heparin drip. Continue statin. (6) Prolonged QT interval: Reviewed EKG. On my interpretation QT improved. Moderate intraventricular conduction delay. Pending official read. On review of EKG noted prolonged QT. Repeat EKG is requested for tomorrow and day after. Monitor on telemetry. Follow-up potassium levels. Monitor heart rates. At risk of life-threatening arrhythmia. Plan Urinary retention: At home uses intermittent catheterization. Reinforced. He is planning to follow-up with urology for consideration of TURP. Found to be retaining in the ER. Appears he and family were worried about infection and has not been self-catheterizing regularly possibly due to retention. No hydronephrosis on CT. Maintain Copeland catheter currently. Continue tamsulosin. After removal resume self-catheterization. Discussed with his partner to continue catheterization otherwise urine retention may risk further complications including urinary infection, kidney injury, etc. Continue follow-up with urology. Attestations 2 Medical Necessity Statement*: Continue admission for assessment management of improving sepsis, complicated UTI with pyelonephritis, and High MDM includes described risk of complication, morbidity or mortality of management as documented Diagnoses Sepsis A41.9 Acute encephalopathy G93.40 Complicated UTI (urinary tract infection) N39.0 Atrial fibrillation I48.91 CAD (coronary artery disease) I25.10 Prolonged QT interval R94.31
[2024-01-20 17:13] LABS: Partial Thromboplastin Time 51.2 SECONDS (23.9-36.7)
[2024-01-20] MEDS: heparin 5,000 unit/mL INJ 1 mL IV (17:50)
[2024-01-20] MEDS: trazodone 100 mg Tablet PO (21:01)
[2024-01-20] MEDS: insulin glargine 100 units/1 mL 18 UNIT SUBCUT (21:01)
[2024-01-20 23:47] LABS: Partial Thromboplastin Time 66.8 SECONDS (23.9-36.7)
[2024-01-21] VITALS (12 sets, daily range): BP systolic 96–120; BP diastolic 59–72; PULSE 0–71; RESP 16–18; TEMP 36.5–37; O2SAT 91–99; BMI 25.8
[2024-01-21] MEDS: heparin drip 25,000 UNIT/500 ML PREMIX 27 UNIT IV (00:08)
[2024-01-21] MEDS: oxyCODONE 5 mg IR Tab/Cap PO ×2 (00:08→05:30)
[2024-01-21] MEDS: MEROPENEM 2,000 MG in sodium chloride 0.9% (plus) 50 ML 100 MG IV ×3 (01:53→17:06)
[2024-01-21] MEDS: diazePAM 5 mg Tablet PO ×2 (05:31→17:06)
[2024-01-21 06:04] LABS: Basophils % 0.5 %; Eosinophils # 0.1 10^3/uL (0.0-0.8); Eosinophils % 1.7 %; Hematocrit 41.9 % (37-53); Lymphocytes # 1.7 10^3/uL (0.8-4.8); Lymphocytes % 21.1 %; Mean Corpuscular HGB Conc 31.3 g/dL (30-55); Mean Corpuscular Hemoglobin 28.2 pg (27-33); Mean Corpuscular Volume 90.1 fl (82-101); Mean Platelet Volume 11.1 fL (7.4-10.4); Monocytes # 0.4 10^3/uL (0.2-0.9); Neutrophils # 5.82 10^3/uL (1.8-7.7); Neutrophils % 71.3 %; Nucleated Red Blood Cells % 0 %; Platelet Count 164 10^3/cmm (157-399); Red Blood Count 4.65 10^6/uL (3.85-5.65); Red Cell Distribution Width 14.4 % (12.1-15.1); White Blood Count 8.16 10^3/uL (3.29-11.43)
[2024-01-21 06:18] LABS: Partial Thromboplastin Time 58.2 SECONDS (23.9-36.7)
[2024-01-21 06:26] LABS: Alanine Aminotransferase 19 U/L (0-41); Albumin Level 2.8 g/dL (3.5-5.2); Alkaline Phosphatase 88 U/L (40-130); Anion Gap 14.3 (5-19); Aspartate Amino Transferase 20 U/L (0-40); Blood Urea Nitrogen 10 mg/dL (8-23); Calcium 8.4 mg/dL (8.5-10.5); Carbon Dioxide 23 mmol/L (22-29); Chloride 107 mmol/L (98-107); Creatinine Clr Calc Pharmacy 153.0118; Globulin 3.3 g/dL (1.3-4.6); Glomerular Filtration Rate 136.1 mL/min (90-130); Glucose 91 mg/dL (65-115); Osmolality Calculated 291 mOsm/kg (285-295); Potassium 3.3 mmol/L (3.5-5.1); Sodium 141 mmol/L (136-145); Total Bilirubin 0.4 mg/dL (0.15-1.2); Total Protein 6.1 g/dL (6.6-8.7)
[2024-01-21] MEDS: insulin glargine 100 units/1 mL 20 UNIT SUBCUT (07:00)
[2024-01-21] MEDS: clopidogrel 75 mg Tablet PO (08:49)
[2024-01-21] MEDS: tamsulosin 0.4 mg Capsule PO (08:50)
[2024-01-21] MEDS: amiodarone 200 mg Tablet PO ×2 (08:50→17:06)
[2024-01-21] MEDS: buPROPion SR (12 HR) 100 mg Tablet PO ×2 (08:50→17:06)
[2024-01-21] MEDS: metoprolol succinate ER (24 HR) 25 mg Tablet 12.5 MG PO (08:50)
[2024-01-21] MEDS: spironolactone 25 mg Tablet PO (08:50)
[2024-01-21] MEDS: atorvastatin 40 mg Tablet PO (08:50)
[2024-01-21] MEDS: sennosides 8.6 mg Tablet PO (08:50)
--- NOTE | 2024-01-21 10:00 | ECG_ITS ---
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 Measurements Intervals [place] Rate: 66 P: 29 ME: 185 QRS: -12 QRSD: 129 T: 76 QT: 450 QTc: 473 Interpretive Statements SINUS RHYTHM WITH OCCASIONAL VENTRICULAR PREMATURE COMPLEXES POSSIBLE LEFT ATRIAL ENLARGEMENT [-0.1mV P-WAVE IN V1/V2] SEPTAL MYOCARDIAL INFARCTION , OF INDETERMINATE AGE [40+ ms Q WAVE IN V1/V2] Compared to ECG 01/20/2024 10:48:59 Ventricular premature complex(es) now present Myocardial infarct finding now present Intraventricular conduction delay no longer present T-wave abnormality no longer present Electronically Signed On 01-21-2024 15:29:24 CDT by Riley Kennedy M.D. [id number]
[2024-01-21] MEDS: apixaban 5 mg Tablet PO ×2 (11:15→17:06)
[2024-01-21] MEDS: potassium chloride ER 20 mEq Tablet PO (11:15)
[2024-01-21 12:39] LABS: Partial Thromboplastin Time 30.9 SECONDS (23.9-36.7)
[2024-01-21] MEDS: pantoprazole 40 mg SDV IVP (17:05)
--- NOTE | 2024-01-21 18:27 | PM.PN ---
Subjective Subjective: He is overall doing better today. We discussed options regarding Copeland catheter, with consensus being removal of Copeland, intermittent straight caths due to risk of infection with indwelling catheter. He also would like to advance diet. Per discussion of his cardiac condition with him and his , they decline additional assessment with stress testing at current time, wanting to reach out to their napping machine operator for reassessment first. They understand that his cardiac condition may have bearing with regards to potential safety of urologic procedure as well. Vitals/I&O/Wt Last Vital Signs Temp 97.8 F 01/21/24 15:51 Pulse 62 01/21/24 15:51 Resp 18 01/21/24 05:30 BP 115/66 01/21/24 15:51 Pulse Ox 97 01/21/24 15:51 O2 Del Method Room Air 01/21/24 15:51 O2 Flow Rate 1.5 01/21/24 10:19 01/21/24 01/21/24 01/21/24 06:59 14:59 22:59 Intake Total 219.65 / 1780.880 530 / 530 Output Total 500 / 1700 500 / 500 Balance -280.35 / 80.880 30 / 30 Weight last 48 hrs Weight 91.314 kg Weight 88.813 kg Physical Exam Narrative: Awake, alert. Accompanied by his life partner at bedside. Frequently consults with partner with regards to making decisions. Const: COMMON NORMALS: patient oriented x3 and alert GENERAL APPEARANCE: cooperative ORIENTATION/CONSCIOUSNESS: Yes awake HENMT: COMMON NORMALS: oropharynx normal Neck/C-Spine: COMMON NORMALS: no JVD Resp: COMMON NORMALS: normal respiratory effort and clear to auscultation bilaterally AUSCULTATION: clear to auscultation bilaterally Cardio: COMMON NORMALS: no JVD, regular rhythm, S1 normal heart sound present, S2 normal heart sound present and No murmurs present (Cardio) RHYTHM: regular rhythm HEART SOUNDS: S1 normal heart sound present and S2 normal heart sound present GI: COMMON NORMALS: Normal to inspection, nondistended, normoactive bowel sounds present, Soft to palpation and non-tender PALPATION: Yes Soft to palpation Extremity: COMMON NORMALS: no joint enlargement and no pedal edema NARRATIVE EXTREMITY EXAM: No rashes. Neuro: COMMON NORMALS: patient oriented x3 and moves all extremities SENSORIUM/ORIENTATION: Yes alert Skin: COMMON NORMALS: no rashes or lesions noted GENERAL SKIN EXAM: no rashes or lesions noted Urinary Catheter Management: Copeland: Cath Placed During This Visit: yes Reason for Continuing Indwelling Catheter: Other Urinary Catheter Date of Insertion: 01/19/24 Urinary Catheter Time of Insertion: 11:45 Data 01/21/24 05:56 01/21/24 05:56 Micro: Microbiology 01/19/24 09:28 Urine Culture - Final Urine,Clean Catch Escherichia coli esbl A&P Assessment and plan (1) Sepsis: Resolving, reviewed vitals, CBC, CMP. Fevers resolved. Leukocytosis resolved. Subjectively he is doing better. Reviewed urine culture, grew ESBL E. coli sensitive to Carbapenem. Reviewed blood culture, negative to date. Continue meropenem, monitor for risk of seizure. With deconditioning, arrangements for SNF for rehabilitation after discharge. Consideration can be given to completion of remainder course of IV antibiotic via peripheral IV if SNF will be agreeable tomorrow. PT requested. Discussed with human services case manager. (2) CAD (coronary artery disease): Per discussion of his cardiac condition with him and his , they decline additional assessment with stress testing at current time, wanting to reach out to their napping machine operator for reassessment first. They understand that his cardiac condition may have bearing with regards to potential safety of urologic procedure as well. Switch back to Eliquis. He remains free of chest pain. Troponin series w moderate downtrending elevation. Discussed cannot exclude progression of coronary disease, demand ischemia, will benefit from nonemergent assessment by stress testing, follow-up with cardiology. Status post CABG, continue Plavix, Eliquis resumed after discharge. Continue statin. (3) Acute encephalopathy: Resolved. Does get anxiety and uses 5 mg Valium intermittently at home. Sometimes uses pain medication with oxycodone. He does not drink alcohol, no recreational drug use. His states he is very intolerant of Xanax it causes him to have delusions. (4) Complicated UTI (urinary tract infection): Complicated UTI with right pyelonephritis, nonobstructive. ESBL MDRO. Continue meropenem. Severe complicated urinary tract infection with sepsis with systemic effects, reviewed urinalysis, CT abdomen pelvis, prior urine cultures, previously with resistant organisms including recently in December with ESBL E. coli, previously also noted and discussed with patient and his pseudomonal infection only intermediate sensitivity to Carbapenem. (5) Atrial fibrillation: Switch back to Eliquis. Continue oral amiodarone. Continue low-dose metoprolol. In ER additionally nonsustained ventricular tachycardia episodes, was transiently on amiodarone drip. (6) Prolonged QT interval: Reviewed EKG. resolved. On review of EKG noted prolonged QT. Repeat EKG is requested for tomorrow and day after. Monitor on telemetry. Follow-up potassium levels. Monitor heart rates. At risk of life-threatening arrhythmia. Plan Urinary retention: DC Copeland catheter. Intermittent straight cath 3 times daily, bladder scan, straight cath as needed. At home uses intermittent catheterization. Reinforced. He is planning to follow-up with urology for consideration of TURP. Found to be retaining in the ER. Appears he and family were worried about infection and has not been self-catheterizing regularly possibly due to retention. No hydronephrosis on CT. Maintain Copeland catheter currently. Continue tamsulosin. After removal resume self-catheterization. Discussed with his partner to continue catheterization otherwise urine retention may risk further complications including urinary infection, kidney injury, etc. Continue follow-up with urology. Attestations Medical Necessity Statement*: Continue admission for assessment management of complicated UTI with pyelonephritis, troponin elevation with underlying CAD, post discharge planning and arrangements. Diagnoses Sepsis A41.9 CAD (coronary artery disease) I25.10 Acute encephalopathy G93.40 Complicated UTI (urinary tract infection) N39.0 Atrial fibrillation I48.91 Prolonged QT interval R94.31
[2024-01-21] MEDS: insulin glargine 100 units/1 mL 18 UNIT SUBCUT (22:05)
[2024-01-21] MEDS: trazodone 100 mg Tablet PO (22:06)
[2024-01-22] MEDS: MEROPENEM 2,000 MG in sodium chloride 0.9% (plus) 50 ML 100 MG IV ×3 (02:03→17:57)
[2024-01-22] MEDS: diazePAM 5 mg Tablet PO ×2 (02:04→20:52)
[2024-01-22 05:52] LABS: Basophils % 0.3 %; Eosinophils # 0.3 10^3/uL (0.0-0.8); Eosinophils % 4.4 %; Lymphocytes # 1.6 10^3/uL (0.8-4.8); Lymphocytes % 26.9 %; Mean Corpuscular HGB Conc 32.6 g/dL (30-55); Mean Corpuscular Hemoglobin 28.7 pg (27-33); Mean Corpuscular Volume 88.2 fl (82-101); Mean Platelet Volume 11.2 fL (7.4-10.4); Monocytes # 0.5 10^3/uL (0.2-0.9); Monocytes % 8.6 %; Neutrophils # 3.58 10^3/uL (1.8-7.7); Nucleated Red Blood Cells % 0 %; Platelet Count 175 10^3/cmm (157-399); Red Blood Count 4.42 10^6/uL (3.85-5.65); Red Cell Distribution Width 14.3 % (12.1-15.1); White Blood Count 6.07 10^3/uL (3.29-11.43)
[2024-01-22 06:08] LABS: Alanine Aminotransferase 14 U/L (0-41); Albumin Level 2.6 g/dL (3.5-5.2); Alkaline Phosphatase 95 U/L (40-130); Anion Gap 11.5 (5-19); Aspartate Amino Transferase 13 U/L (0-40); Blood Urea Nitrogen 8 mg/dL (8-23); Carbon Dioxide 24 mmol/L (22-29); Chloride 108 mmol/L (98-107); Globulin 3.2 g/dL (1.3-4.6); Glomerular Filtration Rate 136.1 mL/min (90-130); Glucose 132 mg/dL (65-115); Osmolality Calculated 290 mOsm/kg (285-295); Potassium 3.5 mmol/L (3.5-5.1); Sodium 140 mmol/L (136-145); Total Bilirubin 0.6 mg/dL (0.15-1.2); Total Protein 5.8 g/dL (6.6-8.7)
[2024-01-22 08:00] VITALS: BP 111/65; O2SAT 96
[2024-01-22] MEDS: tamsulosin 0.4 mg Capsule PO (08:54)
[2024-01-22] MEDS: insulin glargine 100 units/1 mL 20 UNIT SUBCUT (08:54)
[2024-01-22] MEDS: apixaban 5 mg Tablet PO ×2 (08:55→17:57)
[2024-01-22] MEDS: buPROPion SR (12 HR) 100 mg Tablet PO ×2 (08:55→17:57)
[2024-01-22] MEDS: atorvastatin 40 mg Tablet PO (08:55)
[2024-01-22] MEDS: clopidogrel 75 mg Tablet PO (08:55)
[2024-01-22] MEDS: spironolactone 25 mg Tablet PO (08:55)
[2024-01-22] MEDS: metoprolol succinate ER (24 HR) 25 mg Tablet 12.5 MG PO (08:55)
[2024-01-22] MEDS: amiodarone 200 mg Tablet PO (08:55)
--- NOTE | 2024-01-22 09:17 | PC.SOCIAL ---
IMM Update Pg. 2 of IMM updated and reviewed with patient who verbalized understanding. Copy provided.
[2024-01-22 10:00] VITALS: PULSE 60; O2SAT 94
--- NOTE | 2024-01-22 10:00 | ECG_ITS ---
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 Measurements Intervals [place] Rate: 69 P: 38 NM: 185 QRS: -23 QRSD: 124 T: 65 QT: 502 QTc: 538 Interpretive Statements SINUS RHYTHM POSSIBLE LEFT ATRIAL ENLARGEMENT [-0.1mV P-WAVE IN V1/V2] MODERATE INTRAVENTRICULAR CONDUCTION DELAY [105+ ms QRS DURATION, 80+ ms Q/S IN V1/V2, NO Q AND 60+ ms R IN I/aVL/V5/V6] NONSPECIFIC T-WAVE ABNORMALITY PROLONGED QT INTERVAL CRITICAL TEST RESULT Compared to ECG 01/21/2024 09:53:35 Intraventricular conduction delay now present T-wave abnormality now present Prolonged QT interval now present Ventricular premature complex(es) no longer present Myocardial infarct finding no longer present Electronically Signed On 01-22-2024 14:31:56 CDT by Riley Kennedy M.D. [id number]
--- NOTE | 2024-01-22 10:35 | P.PN_ITS ---
Subjective 2 Subjective: Nunu reports no concerns this morning. Medications: Reviewed: Yes Vitals/I&O/Wt Last Vital Signs Temp 98.6 F 01/21/24 23:58 Pulse 71 01/21/24 23:58 Resp 18 01/21/24 23:58 BP 111/65 01/22/24 08:00 Pulse Ox 96 01/22/24 08:00 O2 Del Method Room Air 01/22/24 08:00 O2 Flow Rate 1.5 01/21/24 10:19 01/21/24 01/22/24 01/22/24 22:59 06:59 14:59 Intake Total 50 / 580 50 / 630 Output Total 350 / 850 1350 / 2200 800 / 800 Balance -300 / -270 -1300 / -1570 -800 / -800 Weight last 48 hrs Weight 88.042 kg Weight 88.042 kg Weight 91.314 kg Physical Exam 2 Narrative: General exam no distress Neck is supple Cardiovascular regular rate and rhythm Lungs clear Abdomen is soft Extremities no cyanosis clubbing or edema Urinary Catheter Management: Copeland: Cath Placed During This Visit: yes, but has since been removed by the nurse Reason for Continuing Indwelling Catheter: Other Urinary Catheter Date of Insertion: 01/19/24 Urinary Catheter Time of Insertion: 11:45 Date Urinary Catheter Removed: 01/21/24 Time Urinary Catheter Discontinued: 16:15 Data 01/22/24 05:32 01/22/24 05:32 Micro: Microbiology 01/19/24 09:28 Urine Culture - Final Urine,Clean Catch Escherichia coli esbl A&P Assessment and plan (1) Sepsis: Resolved Reviewed urine culture, grew ESBL E. coli sensitive to Carbapenem. When discharge plan ertapenem, to finish up 10 to 14 days IV/IM PT requested for weakness associated with illness (2) CAD (coronary artery disease): Per discussion of his cardiac condition with him and his , they decline additional assessment with stress testing at current time, wanting to reach out to their senior loan processor for reassessment first. They understand that his cardiac condition may have bearing with regards to potential safety of urologic procedure as well. Continue Eliquis Denies chest discomfort currently. Troponin series w moderate downtrending elevation. Discussed cannot exclude progression of coronary disease, demand ischemia, will benefit from nonemergent assessment by stress testing, follow-up with cardiology. Status post CABG, continue Plavix, Eliquis resumed after discharge. Continue statin. (3) Acute encephalopathy: Resolved. Does get anxiety and uses 5 mg Valium intermittently at home. Sometimes uses pain medication with oxycodone. He does not drink alcohol, no recreational drug use. His states he is very intolerant of Xanax it causes him to have delusions. (4) Complicated UTI (urinary tract infection): Complicated UTI with right pyelonephritis, nonobstructive. ESBL MDRO. Continue meropenem. Severe complicated urinary tract infection with sepsis with systemic effects, reviewed urinalysis, CT abdomen pelvis, prior urine cultures, previously with resistant organisms including recently in December with ESBL E. coli, previously also noted and discussed with patient and his pseudomonal infection only intermediate sensitivity to Carbapenem. (5) Atrial fibrillation: Switch back to Eliquis. Continue oral amiodarone. Continue low-dose metoprolol. In ER additionally nonsustained ventricular tachycardia episodes, was transiently on amiodarone drip. Currently rhythm is stable. Rate is controlled, in sinus. (6) Prolonged QT interval: Reviewed EKG. resolved. On review of EKG noted prolonged QT. Repeat EKG is requested for tomorrow and day after. Monitor on telemetry. Follow-up potassium levels. Monitor heart rates. At risk of life-threatening arrhythmia. QTc today is 538 Check magnesium level Reduce amiodarone to daily Potassium is 3.5. Will supplement x 1. Calcium is appropriately adjusted for albumin. Recheck potassium level tomorrow as well as EKG and magnesium level. Plan Urinary retention: DC Copeland catheter. Intermittent straight cath 3 times daily, bladder scan, straight cath as needed. At home uses intermittent catheterization. Reinforced. He is planning to follow-up with urology for consideration of TURP. Found to be retaining in the ER. Appears he and family were worried about infection and has not been self-catheterizing regularly possibly due to retention. No hydronephrosis on CT. Maintain Copeland catheter currently. Continue tamsulosin. After removal resume self-catheterization. Discussed with his partner to continue catheterization otherwise urine retention may risk further complications including urinary infection, kidney injury, etc. Continue follow-up with urology. Attestations 2 Medical Necessity Statement*: Needs continued hospitalization for IV meropenem, for complicated UTI which is ESBL until arrangements can be made to transition to retirement facility on same Diagnoses Sepsis A41.9 CAD (coronary artery disease) I25.10 Acute encephalopathy G93.40 Complicated UTI (urinary tract infection) N39.0 Atrial fibrillation I48.91 Prolonged QT interval R94.31 Time Spent (min) 30
[2024-01-22] MEDS: potassium chloride ER 20 mEq Tablet 40 MEQ PO (11:48)
[2024-01-22] MEDS: ondansetron 2 mg/ML SDV 2 mL 4 MG IVP (12:19)
[2024-01-22 12:36] LABS: SARS Covid-2 Antigen negative (Negative)
[2024-01-22 16:00] VITALS: BP 113/62; PULSE 68; RESP 18; TEMP 36.7; O2SAT 94
[2024-01-22] MEDS: pantoprazole 40 mg SDV IVP (16:27)
[2024-01-22 20:00] VITALS: BP 107/60; PULSE 79; RESP 18; TEMP 36.7; O2SAT 90
[2024-01-22] MEDS: trazodone 100 mg Tablet PO (20:52)
[2024-01-22] MEDS: insulin glargine 100 units/1 mL 18 UNIT SUBCUT (20:52)
[2024-01-23] VITALS (7 sets, daily range): BP systolic 92–125; BP diastolic 56–74; PULSE 46–78; RESP 14–20; TEMP 36.1–36.9; O2SAT 93–94
[2024-01-23] MEDS: MEROPENEM 2,000 MG in sodium chloride 0.9% (plus) 50 ML 100 MG IV ×3 (01:47→17:26)
[2024-01-23 05:42] LABS: Basophils # 0.1 10^3/uL (0.0-0.1); Basophils % 0.9 %; Eosinophils # 0.3 10^3/uL (0.0-0.8); Eosinophils % 5.6 %; Hematocrit 42.8 % (37-53); Lymphocytes # 1.7 10^3/uL (0.8-4.8); Lymphocytes % 31.1 %; Mean Corpuscular HGB Conc 31.8 g/dL (30-55); Mean Corpuscular Hemoglobin 29.1 pg (27-33); Mean Corpuscular Volume 91.5 fl (82-101); Mean Platelet Volume 10.9 fL (7.4-10.4); Monocytes # 0.5 10^3/uL (0.2-0.9); Monocytes % 9.6 %; Neutrophils # 2.85 10^3/uL (1.8-7.7); Neutrophils % 51.5 %; Nucleated Red Blood Cells % 0 %; Platelet Count 176 10^3/cmm (157-399); Red Blood Count 4.68 10^6/uL (3.85-5.65); Red Cell Distribution Width 14.6 % (12.1-15.1); White Blood Count 5.53 10^3/uL (3.29-11.43)
[2024-01-23 06:16] LABS: Blood Urea Nitrogen 9 mg/dL (8-23); Calcium 8.4 mg/dL (8.5-10.5); Carbon Dioxide 25 mmol/L (22-29); Chloride 106 mmol/L (98-107); Creatinine Clr Calc Pharmacy 128.2942; Glomerular Filtration Rate 113.9 mL/min (90-130); Glucose 125 mg/dL (65-115); Magnesium 2.2 mg/dL (1.7-2.3); Osmolality Calculated 290 mOsm/kg (285-295); Sodium 140 mmol/L (136-145)
--- NOTE | 2024-01-23 08:07 | ECG_ITS ---
[facility] Test Date: 2024-01-23 Pat Name: Nunu Hernandez Department: Room: 104 Gender: Male Physician Assistant Primary Care: : 1960 Requested By: Jordin Roberto Order Number: [id number] Heidi MD: David Pollack M.D. Measurements Intervals [place] Rate: 57 P: 40 MT: 187 QRS: -11 QRSD: 120 T: 75 QT: 466 QTc: 455 Interpretive Statements SINUS BRADYCARDIA POSSIBLE LEFT ATRIAL ENLARGEMENT [-0.1mV P-WAVE IN V1/V2] MODERATE INTRAVENTRICULAR CONDUCTION DELAY [105+ ms QRS DURATION, 80+ ms Q/S IN V1/V2, NO Q AND 60+ ms R IN I/aVL/V5/V6] NONSPECIFIC T-WAVE ABNORMALITY Compared to ECG 01/22/2024 10:29:09 Sinus rhythm no longer present Prolonged QT interval no longer present T-wave abnormality still present Electronically Signed On 01-23-2024 8:29:49 CDT by David Pollack M.D. [id number]
[2024-01-23] MEDS: FUROsemide 40 mg Tablet PO (08:23)
[2024-01-23] MEDS: insulin glargine 100 units/1 mL 20 UNIT SUBCUT (08:23)
[2024-01-23] MEDS: atorvastatin 40 mg Tablet PO (08:23)
[2024-01-23] MEDS: amiodarone 200 mg Tablet PO (08:23)
[2024-01-23] MEDS: apixaban 5 mg Tablet PO ×2 (08:23→17:26)
[2024-01-23] MEDS: clopidogrel 75 mg Tablet PO (08:24)
[2024-01-23] MEDS: tamsulosin 0.4 mg Capsule PO (08:24)
[2024-01-23] MEDS: buPROPion SR (12 HR) 100 mg Tablet PO ×2 (08:24→17:26)
[2024-01-23] MEDS: metoprolol succinate ER (24 HR) 25 mg Tablet 12.5 MG PO (08:24)
[2024-01-23] MEDS: spironolactone 25 mg Tablet PO (08:24)
--- NOTE | 2024-01-23 13:36 | P.PN_ITS ---
Subjective 2 Subjective: No complaints. Medications: Reviewed: Yes Vitals/I&O/Wt Last Vital Signs Temp 97.7 F 01/23/24 11:57 Pulse 78 01/23/24 11:57 Resp 20 H 01/23/24 11:57 BP 99/63 01/23/24 11:57 Pulse Ox 93 01/23/24 11:57 O2 Del Method Room Air 01/23/24 11:57 O2 Flow Rate 1.5 01/21/24 10:19 01/22/24 01/23/24 01/23/24 22:59 06:59 14:59 Intake Total 810 / 1100 250 / 1350 290 / 290 Output Total 225 / 1700 600 / 2300 625 / 625 Balance 585 / -600 -350 / -950 -335 / -335 Weight last 48 hrs Weight 86.636 kg Weight 88.042 kg Weight 88.042 kg Physical Exam 2 Narrative: General exam no distress Neck is supple Cardiovascular regular rate and rhythm Lungs clear Abdomen is soft Extremities no cyanosis clubbing or edema Urinary Catheter Management: Copeland: Cath Placed During This Visit: yes, but has since been removed by the nurse Reason for Continuing Indwelling Catheter: Other Urinary Catheter Date of Insertion: 01/19/24 Urinary Catheter Time of Insertion: 11:45 Date Urinary Catheter Removed: 01/21/24 Time Urinary Catheter Discontinued: 16:15 Data 01/23/24 05:00 01/23/24 05:00 A&P Assessment and plan (1) Sepsis: Resolved Reviewed urine culture, grew ESBL E. coli sensitive to Carbapenem. When discharge plan ertapenem, to finish up 10 to 14 days IV/IM PT requested for weakness associated with illness (2) CAD (coronary artery disease): Per discussion of his cardiac condition with him and his , they decline additional assessment with stress testing at current time, wanting to reach out to their superintendent plant for reassessment first. They understand that his cardiac condition may have bearing with regards to potential safety of urologic procedure as well. Continue Eliquis Denies chest discomfort currently. Troponin series w moderate downtrending elevation. Discussed cannot exclude progression of coronary disease, demand ischemia, will benefit from nonemergent assessment by stress testing, follow-up with cardiology. Status post CABG, continue Plavix, Eliquis resumed after discharge. Continue statin. (3) Acute encephalopathy: Resolved. Does get anxiety and uses 5 mg Valium intermittently at home. Sometimes uses pain medication with oxycodone. He does not drink alcohol, no recreational drug use. His states he is very intolerant of Xanax it causes him to have delusions. (4) Complicated UTI (urinary tract infection): Complicated UTI with right pyelonephritis, nonobstructive. ESBL MDRO. Continue meropenem. Severe complicated urinary tract infection with sepsis with systemic effects, reviewed urinalysis, CT abdomen pelvis, prior urine cultures, previously with resistant organisms including recently in December with ESBL E. coli, previously also noted and discussed with patient and his pseudomonal infection only intermediate sensitivity to Carbapenem. (5) Atrial fibrillation: Continue Eliquis. Continue oral amiodarone. Continue low-dose metoprolol. In ER additionally nonsustained ventricular tachycardia episodes, was transiently on amiodarone drip. Rhythm stable. Amiodarone dose decreased to home medication dose (6) Prolonged QT interval: Reviewed EKG. resolved. On review of EKG noted prolonged QT. Repeat EKG is requested for tomorrow and day after. Monitor on telemetry. Follow-up potassium levels. Monitor heart rates. At risk of life-threatening arrhythmia. QTc QTc normal today has decreased to 456 todayhas decreased to 456 today Magnes level normal Amiodarone dose reduced. Potassium is 4.0 today Plan Urinary retention: DC Copeland catheter. Intermittent straight cath 3 times daily, bladder scan, straight cath as needed. At home uses intermittent catheterization. Reinforced. He is planning to follow-up with urology for consideration of TURP. Found to be retaining in the ER. Appears he and family were worried about infection and has not been self-catheterizing regularly possibly due to retention. No hydronephrosis on CT. Maintain Copeland catheter currently. Continue tamsulosin. After removal resume self-catheterization. Discussed with his partner to continue catheterization otherwise urine retention may risk further complications including urinary infection, kidney injury, etc. Continue follow-up with urology. No need for lab tomorrow. Attestations 2 Medical Necessity Statement*: Needs continued hospitalization for IV Meropenem for complicated UTI with resistant ESBL awaiting nursing facility placement. Diagnoses Sepsis A41.9 CAD (coronary artery disease) I25.10 Acute encephalopathy G93.40 Complicated UTI (urinary tract infection) N39.0 Atrial fibrillation I48.91 Prolonged QT interval R94.31 Time Spent (min) 22
[2024-01-23] MEDS: pantoprazole 40 mg SDV IVP (14:51)
[2024-01-23] MEDS: oxyCODONE 5 mg IR Tab/Cap PO (20:37)
[2024-01-23] MEDS: insulin glargine 100 units/1 mL 18 UNIT SUBCUT (20:37)
[2024-01-23] MEDS: trazodone 100 mg Tablet PO (20:37)
[2024-01-24] VITALS (9 sets, daily range): BP systolic 80–116; BP diastolic 39–65; PULSE 56–93; RESP 15–23; TEMP 36.6–36.9; O2SAT 92–98; BMI 24.5
[2024-01-24] MEDS: diazePAM 5 mg Tablet PO ×2 (00:31→23:32)
[2024-01-24] MEDS: MEROPENEM 2,000 MG in sodium chloride 0.9% (plus) 50 ML 100 MG IV ×3 (02:08→17:47)
[2024-01-24] MEDS: oxyCODONE 5 mg IR Tab/Cap PO ×2 (07:34→20:06)
[2024-01-24] MEDS: FUROsemide 40 mg Tablet PO (07:35)
[2024-01-24] MEDS: clopidogrel 75 mg Tablet PO (08:08)
[2024-01-24] MEDS: tamsulosin 0.4 mg Capsule PO (08:08)
[2024-01-24] MEDS: buPROPion SR (12 HR) 100 mg Tablet PO ×2 (08:08→17:47)
[2024-01-24] MEDS: spironolactone 25 mg Tablet PO (08:08)
[2024-01-24] MEDS: metoprolol succinate ER (24 HR) 25 mg Tablet 12.5 MG PO (08:08)
[2024-01-24] MEDS: atorvastatin 40 mg Tablet PO (08:08)
[2024-01-24] MEDS: insulin glargine 100 units/1 mL 18 UNIT SUBCUT ×2 (08:09→20:06)
[2024-01-24] MEDS: amiodarone 200 mg Tablet PO (08:09)
[2024-01-24] MEDS: apixaban 5 mg Tablet PO ×2 (08:09→17:47)
[2024-01-24] MEDS: insulin glargine 100 units/1 mL 20 UNIT SUBCUT (09:26)
--- NOTE | 2024-01-24 09:26 | PC.SOCIAL ---
IMM Update Pg. 2 of IMM updated and reviewed with patient, who verbalized understanding. Copy provided.
--- NOTE | 2024-01-24 10:35 | PC.NURSE ---
Physical therapy saw patient this morning, his blood pressure before was 106/64 and after was 113/68. He is complaining this morning about back pain.
--- NOTE | 2024-01-24 12:15 | P.PN_ITS ---
Subjective 2 Subjective: Patient reports no complaints. He is participating in self-catheterization. Still awaiting nursing facility placement. Medications: Reviewed: Yes Vitals/I&O/Wt Last Vital Signs Temp 98.0 F 01/24/24 07:28 Pulse 70 01/24/24 07:28 Resp 18 01/24/24 07:34 BP 94/60 01/24/24 07:28 Pulse Ox 92 01/24/24 07:34 O2 Del Method Room Air 01/24/24 07:28 O2 Flow Rate 1.5 01/21/24 10:19 01/23/24 01/24/24 01/24/24 22:59 06:59 14:59 Intake Total 170 / 700 50 / 750 530 / 530 Output Total 1925 / 2550 250 / 2800 450 / 450 Balance -1755 / -1850 -200 / -2050 80 / 80 Weight last 48 hrs Weight 86.636 kg Weight 86.636 kg Physical Exam 2 Narrative: General exam no distress Neck is supple Cardiovascular regular rate and rhythm Lungs clear Abdomen is soft Extremities no cyanosis clubbing or edema Urinary Catheter Management: Copeland: Cath Placed During This Visit: yes, but has since been removed by the nurse Reason for Continuing Indwelling Catheter: Other Urinary Catheter Date of Insertion: 01/19/24 Urinary Catheter Time of Insertion: 11:45 Date Urinary Catheter Removed: 01/21/24 Time Urinary Catheter Discontinued: 16:15 Data 01/23/24 05:00 01/23/24 05:00 Micro: Microbiology 01/19/24 09:09 Blood Culture - Final Blood NO GROWTH AFTER 5 DAYS 01/19/24 09:13 Blood Culture - Final Blood NO GROWTH AFTER 5 DAYS A&P Assessment and plan (1) Sepsis: Resolved Reviewed urine culture, grew ESBL E. coli sensitive to Carbapenem. When discharge plan ertapenem, to finish up 10 to 14 days IV/IM. He was admitted on the so currently day 6 PT requested for weakness associated with illness (2) CAD (coronary artery disease): Per discussion of his cardiac condition with him and his , they decline additional assessment with stress testing at current time, wanting to reach out to their canvas cutter for reassessment first. They understand that his cardiac condition may have bearing with regards to potential safety of urologic procedure as well. Continue Eliquis Denies chest discomfort currently. Troponin series w moderate downtrending elevation. Discussed cannot exclude progression of coronary disease, demand ischemia, will benefit from nonemergent assessment by stress testing, follow-up with cardiology. Status post CABG, continue Plavix, Eliquis resumed after discharge. Continue statin. (3) Acute encephalopathy: Resolved. Does get anxiety and uses 5 mg Valium intermittently at home. Sometimes uses pain medication with oxycodone. He does not drink alcohol, no recreational drug use. His states he is very intolerant of Xanax it causes him to have delusions. (4) Complicated UTI (urinary tract infection): Complicated UTI with right pyelonephritis, nonobstructive. ESBL MDRO. Continue meropenem. Severe complicated urinary tract infection with sepsis with systemic effects, reviewed urinalysis, CT abdomen pelvis, prior urine cultures, previously with resistant organisms including recently in December with ESBL E. coli, previously also noted and discussed with patient and his pseudomonal infection only intermediate sensitivity to Carbapenem. (5) Atrial fibrillation: Continue Eliquis. Continue oral amiodarone. Continue low-dose metoprolol. In ER additionally nonsustained ventricular tachycardia episodes, was transiently on amiodarone drip. Rhythm stable. Amiodarone dose decreased to home medication dose (6) Prolonged QT interval: Reviewed EKG. resolved. On review of EKG noted prolonged QT. Repeat EKG is requested for tomorrow and day after. Monitor on telemetry. Follow-up potassium levels. Monitor heart rates. At risk of life-threatening arrhythmia. QTc QTc normal today has decreased to 456 today decreased to 456 01/22 Magnes level normal Amiodarone dose reduced. Plan Urinary retention: DC Copeland catheter. Intermittent straight cath 3 times daily, bladder scan, straight cath as needed. At home uses intermittent catheterization. Reinforced. He is planning to follow-up with urology for consideration of TURP. Found to be retaining in the ER. Appears he and family were worried about infection and has not been self-catheterizing regularly possibly due to retention. No hydronephrosis on CT. Maintain Copeland catheter currently. Continue tamsulosin. After removal resume self-catheterization. Discussed with his partner to continue catheterization otherwise urine retention may risk further complications including urinary infection, kidney injury, etc. Continue follow-up with urology. Attestations 2 Medical Necessity Statement*: Needs continued IV carbapenem for complicated UTI with resistant ESBL awaiting nursing facility placement. Diagnoses Sepsis A41.9 CAD (coronary artery disease) I25.10 Acute encephalopathy G93.40 Complicated UTI (urinary tract infection) N39.0 Atrial fibrillation I48.91 Prolonged QT interval R94.31 Time Spent (min) 21
[2024-01-24] MEDS: pantoprazole 40 mg SDV IVP (15:01)
--- NOTE | 2024-01-24 17:44 | PC.NURSE ---
Patient has continued to refuse to wear telemetry.
[2024-01-24] MEDS: trazodone 100 mg Tablet PO (20:06)
[2024-01-25] VITALS (9 sets, daily range): BP systolic 99–115; BP diastolic 59–72; PULSE 52–70; RESP 12–20; TEMP 36.4–36.6; O2SAT 91–98
[2024-01-25] MEDS: MEROPENEM 2,000 MG in sodium chloride 0.9% (plus) 50 ML 100 MG IV ×3 (01:54→17:04)
--- NOTE | 2024-01-25 06:00 | PC.NURSE ---
patient refuses lantus at this time states he will take it with his breakfast
[2024-01-25] MEDS: oxyCODONE 5 mg IR Tab/Cap PO ×2 (08:02→20:46)
[2024-01-25] MEDS: metoprolol succinate ER (24 HR) 25 mg Tablet 12.5 MG PO (08:03)
[2024-01-25] MEDS: clopidogrel 75 mg Tablet PO (08:03)
[2024-01-25] MEDS: buPROPion SR (12 HR) 100 mg Tablet PO ×2 (08:03→17:04)
[2024-01-25] MEDS: FUROsemide 40 mg Tablet PO (08:03)
[2024-01-25] MEDS: apixaban 5 mg Tablet PO ×2 (08:03→17:04)
[2024-01-25] MEDS: atorvastatin 40 mg Tablet PO (08:03)
[2024-01-25] MEDS: insulin glargine 100 units/1 mL 20 UNIT SUBCUT (08:03)
[2024-01-25] MEDS: tamsulosin 0.4 mg Capsule PO (08:03)
[2024-01-25] MEDS: amiodarone 200 mg Tablet PO (08:03)
[2024-01-25] MEDS: spironolactone 25 mg Tablet PO (08:03)
--- NOTE | 2024-01-25 09:49 | PM.PN ---
Subjective Subjective: No issues overnight. Denies any chills. Reports he still feels weak. Medications: Reviewed: Yes Vitals/I&O/Wt Last Vital Signs Temp 97.6 F 01/25/24 07:49 Pulse 70 01/25/24 07:49 Resp 20 H 01/25/24 08:02 BP 105/68 01/25/24 07:49 Pulse Ox 91 01/25/24 07:49 O2 Del Method Room Air 01/25/24 07:49 O2 Flow Rate 1.5 01/21/24 10:19 01/24/24 01/25/24 01/25/24 22:59 06:59 14:59 Intake Total 570 / 1340 50 / 1390 240 / 240 Output Total 1075 / 1525 600 / 2125 Balance -505 / -185 -550 / -735 240 / 240 Weight last 48 hrs Weight 85.842 kg Weight 86.636 kg Physical Exam Narrative: General exam no distress Neck is supple Cardiovascular regular rate and rhythm Lungs clear Abdomen is soft Extremities no cyanosis clubbing or edema Urinary Catheter Management: Copeland: Cath Placed During This Visit: yes, but has since been removed by the nurse Reason for Continuing Indwelling Catheter: Other Urinary Catheter Date of Insertion: 01/19/24 Urinary Catheter Time of Insertion: 11:45 Date Urinary Catheter Removed: 01/21/24 Time Urinary Catheter Discontinued: 16:15 Data 01/23/24 05:00 01/23/24 05:00 Micro: Microbiology 01/19/24 09:09 Blood Culture - Final Blood NO GROWTH AFTER 5 DAYS 01/19/24 09:13 Blood Culture - Final Blood NO GROWTH AFTER 5 DAYS A&P Assessment and plan (1) Sepsis: Resolved Reviewed urine culture, grew ESBL E. coli sensitive to Carbapenem. When discharge plan ertapenem, to finish up 10 to 14 days IV/IM. He was admitted on the so currently day 6/7 PT requested for weakness associated with illness (2) CAD (coronary artery disease): Per discussion of his cardiac condition with him and his , they decline additional assessment with stress testing at current time, wanting to reach out to their hat finishing materials preparer for reassessment first. They understand that his cardiac condition may have bearing with regards to potential safety of urologic procedure as well. Continue Eliquis Denies chest discomfort currently. Troponin series w moderate downtrending elevation. Discussed cannot exclude progression of coronary disease, demand ischemia, will benefit from nonemergent assessment by stress testing, follow-up with cardiology. Status post CABG, continue Plavix, Eliquis resumed after discharge. Continue statin. (3) Acute encephalopathy: Resolved. Does get anxiety and uses 5 mg Valium intermittently at home. Sometimes uses pain medication with oxycodone. He does not drink alcohol, no recreational drug use. His states he is very intolerant of Xanax it causes him to have delusions. (4) Complicated UTI (urinary tract infection): Complicated UTI with right pyelonephritis, nonobstructive. ESBL MDRO. Continue meropenem. Severe complicated urinary tract infection with sepsis with systemic effects, reviewed urinalysis, CT abdomen pelvis, prior urine cultures, previously with resistant organisms including recently in December with ESBL E. coli, previously also noted and discussed with patient and his pseudomonal infection only intermediate sensitivity to Carbapenem. CBC, BMP tomorrow (5) Atrial fibrillation: Continue Eliquis. Continue oral amiodarone. Continue low-dose metoprolol. In ER additionally nonsustained ventricular tachycardia episodes, was transiently on amiodarone drip. Rhythm stable. Amiodarone dose decreased to home medication dose (6) Prolonged QT interval: Reviewed EKG. resolved. On review of EKG noted prolonged QT. Repeat EKG is requested for tomorrow and day after. Monitor on telemetry. Follow-up potassium levels. Monitor heart rates. At risk of life-threatening arrhythmia. QTc QTc normal today has decreased to 456 today decreased to 456 01/22 Magnes level normal Amiodarone dose reduced. No arrhythmias detected, although he often refuses his telemetry. Plan Urinary retention: DC Copeland catheter. Intermittent straight cath 3 times daily, bladder scan, straight cath as needed. At home uses intermittent catheterization. Reinforced. He is planning to follow-up with urology for consideration of TURP. Found to be retaining in the ER. Appears he and family were worried about infection and has not been self-catheterizing regularly possibly due to retention. No hydronephrosis on CT. Maintain Copeland catheter currently. Continue tamsulosin. After removal resume self-catheterization. Discussed with his partner to continue catheterization otherwise urine retention may risk further complications including urinary infection, kidney injury, etc. Continue follow-up with urology. Attestations Medical Necessity Statement*: Needs continued hospitalization for IV antibiotic pending nursing facility placement in this patient with complicated UTI with resistant ESBL Diagnoses Sepsis A41.9 CAD (coronary artery disease) I25.10 Acute encephalopathy G93.40 Complicated UTI (urinary tract infection) N39.0 Atrial fibrillation I48.91 Prolonged QT interval R94.31 Time Spent (min) 17
[2024-01-25] MEDS: pantoprazole 40 mg SDV IVP (17:04)
[2024-01-25] MEDS: ondansetron 2 mg/ML SDV 2 mL 4 MG IVP (19:12)
[2024-01-25] MEDS: trazodone 100 mg Tablet PO (20:46)
[2024-01-25] MEDS: insulin glargine 100 units/1 mL 18 UNIT SUBCUT (20:46)
[2024-01-25] MEDS: diazePAM 5 mg Tablet PO (23:51)
[2024-01-26] MEDS: MEROPENEM 2,000 MG in sodium chloride 0.9% (plus) 50 ML 100 MG IV ×2 (01:27→09:51)
[2024-01-26 03:44] VITALS: BP 97/65; PULSE 51; RESP 19; TEMP 36.5; O2SAT 93
[2024-01-26 05:08] LABS: Basophils # 0.1 10^3/uL (0.0-0.1); Basophils % 0.9 %; Eosinophils # 0.5 10^3/uL (0.0-0.8); Eosinophils % 6.5 %; Hematocrit 45.8 % (37-53); Lymphocytes # 2.6 10^3/uL (0.8-4.8); Mean Corpuscular HGB Conc 31.9 g/dL (30-55); Mean Corpuscular Hemoglobin 28.8 pg (27-33); Mean Corpuscular Volume 90.3 fl (82-101); Mean Platelet Volume 10.9 fL (7.4-10.4); Monocytes # 0.6 10^3/uL (0.2-0.9); Monocytes % 8.4 %; Neutrophils # 3.44 10^3/uL (1.8-7.7); Neutrophils % 46.1 %; Nucleated Red Blood Cells % 0 %; Platelet Count 222 10^3/cmm (157-399); Red Blood Count 5.07 10^6/uL (3.85-5.65); Red Cell Distribution Width 14.5 % (12.1-15.1); White Blood Count 7.49 10^3/uL (3.29-11.43)
[2024-01-26 05:29] LABS: Anion Gap 14.3 (5-19); Blood Urea Nitrogen 13 mg/dL (8-23); Calcium 8.8 mg/dL (8.5-10.5); Carbon Dioxide 27 mmol/L (22-29); Chloride 102 mmol/L (98-107); Creatinine Clr Calc Pharmacy 97.4345; Glomerular Filtration Rate 85.2 mL/min (90-130); Glucose 99 mg/dL (65-115); Osmolality Calculated 290 mOsm/kg (285-295); Potassium 3.3 mmol/L (3.5-5.1); Sodium 140 mmol/L (136-145)
[2024-01-26 07:25] VITALS: BP 83/51; PULSE 51; RESP 16; TEMP 36.6; O2SAT 94
[2024-01-26] MEDS: FUROsemide 40 mg Tablet PO (08:25)
[2024-01-26] MEDS: insulin glargine 100 units/1 mL 20 UNIT SUBCUT (08:25)
[2024-01-26] MEDS: potassium chloride ER 20 mEq Tablet 40 MEQ PO (08:25)
[2024-01-26] MEDS: metoprolol succinate ER (24 HR) 25 mg Tablet 12.5 MG PO (08:26)
[2024-01-26] MEDS: amiodarone 200 mg Tablet PO (08:26)
[2024-01-26] MEDS: spironolactone 25 mg Tablet PO (08:26)
[2024-01-26] MEDS: clopidogrel 75 mg Tablet PO (08:26)
[2024-01-26] MEDS: buPROPion SR (12 HR) 100 mg Tablet PO (08:26)
[2024-01-26] MEDS: apixaban 5 mg Tablet PO (08:26)
[2024-01-26] MEDS: atorvastatin 40 mg Tablet PO (08:26)
[2024-01-26] MEDS: tamsulosin 0.4 mg Capsule PO (08:26)
--- NOTE | 2024-01-26 08:46 | PC.SOCIAL ---
IMM Update Pg. 2 of IMM updated; copy provided to patient at bedside.
[2024-01-26 09:55] VITALS: RESP 20
[2024-01-26] MEDS: oxyCODONE 5 mg IR Tab/Cap PO (09:55)
[2024-01-26 11:14] VITALS: BP 97/65; PULSE 55; RESP 16; TEMP 36.5; O2SAT 94
--- NOTE | 2024-01-26 13:11 | P.DS_ITS ---
Discharge Providers Date of Admission: 01/19/24 13:55 Date of Discharge: January 26, 2024 Attending Provider at Admission: Neptali York Attending Provider at Discharge: Jordin Castillo MD Primary Care Provider: Justin May MD Diagnoses at Discharge Discharge Diagnosis (1) Sepsis: Status: Acute (2) CAD (coronary artery disease): Status: Acute (3) Acute encephalopathy: Status: Acute (4) Complicated UTI (urinary tract infection): Status: Acute (5) Atrial fibrillation: Status: Acute (6) Prolonged QT interval: Status: Acute Reason for Visit Reason for Visit: weakness Hospital Course Hospital Course Patient is a 63-year-old white male who presented on 01/18 with sepsis, and acute encephalopathy. He had history of ESBL in the recent past. He was diagnosed with pyelonephritis, urinary retention. He was also found to have prolonged QT interval. He had not been catheterizing regularly, possibly contributing to urinary retention. He was placed in the hospital on IV meropenem. With this, fluids, he responded quickly and encephalopathy went away. His amiodarone was briefly increased for his atrial fibrillation, but QT interval was noted to be prolonged so this was decreased back down to his 200 mg a day with QT interval going to normal. Electrolytes were checked, supplemented appropriately. By 01/25 he was ready to go to the nursing facility. He will complete at least 4 more days of IV/IM ertapenem which will give him approximately 12 days of treatment with carbapenem for his ESBL UTI. Note that he was not bacteremic. Note that his CT did not demonstrate any obstruction, abscess. Both he and his were able to ask questions and agreed with the plan. Physical Exam Narrative: General exam no distress Neck is supple Cardiovascular regular rate and rhythm Lungs clear Abdomen soft Extremities no sinus clubbing edema Urinary Catheter Management: [place]: Cath Placed During This Visit: yes, but has since been removed by the nurse Reason for Continuing Indwelling Catheter: Other Urinary Catheter Date of Insertion: 01/19/24 Urinary Catheter Time of Insertion: 11:45 Date Urinary Catheter Removed: 01/21/24 Time Urinary Catheter Discontinued: 16:15 Discharge Data Studies Completed and Pending Completed Studies During Hospitalization Category Date Time Status CT abdomen pelvis w con* [id number] Stat Cat Scan 01/19/24 10:53 Completed XR chest 1V portable [id number] Stat Exams 01/19/24 10:53 Completed Radiology Impressions Abdomen/Pelvis CT 01/19/24 10:53 IMPRESSION: No acute findings. Chest X-Ray 01/19/24 10:53 IMPRESSION: Mild interstitial prominence diffusely likely chronic. No focal consolidation. Laboratory Results WBC 7.49 10^3/uL (3.29-11.43) 01/26/24 04:04 RBC 5.07 10^6/uL (3.85-5.65) 01/26/24 04:04 Hgb 14.60 g/dL (11.27-16.99) 01/26/24 04:04 Hct 45.8 % (37-53) 01/26/24 04:04 MCV 90.3 fl (82-101) 01/26/24 04:04 MCH 28.8 pg (27-33) 01/26/24 04:04 MCHC 31.9 g/dL (30-55) 01/26/24 04:04 RDW 14.5 % (12.1-15.1) 01/26/24 04:04 Plt Count 222 10^3/cmm (157-399) 01/26/24 04:04 MPV 10.9 fL (7.4-10.4) H 01/26/24 04:04 Neut % (Auto) 46.1 % 01/26/24 04:04 Lymph % (Auto) 34.0 % 01/26/24 04:04 Smith % (Auto) 8.4 % 01/26/24 04:04 Eos % (Auto) 6.5 % 01/26/24 04:04 Baso % (Auto) 0.9 % 01/26/24 04:04 Neut # (Auto) 3.44 10^3/uL (1.8-7.7) 01/26/24 04:04 Lymph # (Auto) 2.6 10^3/uL (0.8-4.8) 01/26/24 04:04 Smith # (Auto) 0.6 10^3/uL (0.2-0.9) 01/26/24 04:04 Eos # (Auto) 0.5 10^3/uL (0.0-0.8) 01/26/24 04:04 Baso # (Auto) 0.1 10^3/uL (0.0-0.1) 01/26/24 04:04 Nucleated RBC % (auto) 0 % 01/26/24 04:04 Nucleated RBCs # 0.0 /100WBC 01/26/24 04:04 APTT 30.9 SECONDS (23.9-36.7) 01/21/24 12:21 Specimen Type Arterial 01/19/24 09:10 Sample Site Radial, left 01/19/24 09:10 ABG pH 7.48 (7.35-7.45) H 01/19/24 09:10 ABG pCO2 33.9 mmHg (35-45) L 01/19/24 09:10 ABG pO2 65.5 mmHg (80.0-100.0) L 01/19/24 09:10 ABG PO2/FiO2 Ratio 311 01/19/24 09:10 ABG HCO3 25.4 mmol/L (22-26) 01/19/24 09:10 ABG O2 Saturation 94.4 01/19/24 09:10 ABG Base Excess 2.3 mmol/L (-2.0-2.0) H 01/19/24 09:10 Ross Test Pos 01/19/24 09:10 A-a O2 Gradient 5.5 mmHg (5-10) 01/19/24 09:10 Hematocrit 42.7 % (42-52) 01/19/24 09:10 Hgb O2 Saturation 93.8 % (95-100) L 01/19/24 09:10 Carboxyhemoglobin 1.6 %THgb (0.4-20.1) 01/19/24 09:10 Methemoglobin < 0.0 % (0.4-1.5) L 01/19/24 09:10 Total Hemoglobin 13.9 g/dL (14-18) L 01/19/24 09:10 Sodium 137.0 mmol/L (131-143) 01/19/24 09:10 Potassium 3.8 mmol/L (3.5-5.0) 01/19/24 09:10 Glucose 187.0 mg/dL (70-115) H 01/19/24 09:10 Ionized Calcium 1.2 mmol/L (1.1-1.4) 01/19/24 09:10 O2 Delivery Device Room air 01/19/24 09:10 FiO2 21.0 % 01/19/24 09:10 Technical Service Representative ID Cak 01/19/24 09:10 Sodium 140 mmol/L (136-145) 01/26/24 04:04 Potassium 3.3 mmol/L (3.5-5.1) L 01/26/24 04:04 Chloride 102 mmol/L (98-107) 01/26/24 04:04 Carbon Dioxide 27 mmol/L (22-29) 01/26/24 04:04 Anion Gap 14.3 (5-19) 01/26/24 04:04 BUN 13 mg/dL (8-23) 01/26/24 04:04 Creatinine 0.9 mg/dL (0.7-1.2) 01/26/24 04:04 GFR Calculation 85.2 mL/min (90-130) L 01/26/24 04:04 Glucose 99 mg/dL (65-115) 01/26/24 04:04 POC Glucose 249 mg/dL (70-110) H 01/20/24 06:30 Calculated Osmolality 290 mOsm/kg (285-295) 01/26/24 04:04 Lactic Acid 3.0 mmol/L (0.5-2.2) H 01/19/24 09:09 Lactic Acid (Sepsis) 4.5 mmol/L (0.5-2.2) H* 01/19/24 12:06 Lactate 2.2 mmol/L (0.5-2.2) 01/20/24 04:16 Calcium 8.8 mg/dL (8.5-10.5) 01/26/24 04:04 Magnesium 2.2 mg/dL (1.7-2.3) 01/23/24 05:00 Total Bilirubin 0.6 mg/dL (0.15-1.2) 01/22/24 05:32 AST 13 U/L (0-40) 01/22/24 05:32 ALT 14 U/L (0-41) 01/22/24 05:32 Alkaline Phosphatase 95 U/L (40-130) 01/22/24 05:32 Creatine Kinase 137 U/L (39-308) 01/19/24 09:09 Troponin T Baseline 101 ng/L (0-15) H* 01/19/24 09:09 Troponin T 120 Minute 88.03 ng/L (0-15) H 01/19/24 11:05 Delta Troponin T -12.97 ABS# (0-10) L 01/19/24 11:05 Troponin T Hi Sens 6Hr 81.86 ng/L (0-15) H 01/19/24 15:15 Troponin T Hi Sens 6Hr Delta -19.14 ng/L (0-12) L 01/19/24 15:15 Total Protein 5.8 g/dL (6.6-8.7) L 01/22/24 05:32 Albumin 2.6 g/dL (3.5-5.2) L 01/22/24 05:32 Globulin 3.2 g/dL (1.3-4.6) 01/22/24 05:32 Lipase 13 U/L (13-60) 01/19/24 09:09 Urine Color Yellow (Yellow) 01/19/24 09:28 Urine Appearance Cloudy (CLEAR) A 01/19/24 09:28 Urine pH 5 (5-7) 01/19/24 09:28 Ur Specific [place] 1.015 (1.005-1.030) 01/19/24 09:28 Urine Protein Trace (Negative) 01/19/24 09:28 Urine Glucose (UA) Norm (Normal) 01/19/24 09:28 Urine Ketones Negative (Negative) 01/19/24 09:28 Urine Blood 3+ (Negative) H 01/19/24 09:28 Urine Nitrate Negative (Negative) 01/19/24 09:28 Urine Bilirubin Neg (Negative) 01/19/24 09:28 Urine Urobilinogen 1 mg/dL (Negative) H 01/19/24 09:28 Ur Leukocyte Esterase 2+ (Negative) H 01/19/24 09:28 Urine RBC 10-15 /hpf (0-2) H 01/19/24 09:28 Urine WBC Too numerous to cnt /hpf (0-5) H 01/19/24 09:28 Ur Squamous Epith Cells 0-4 /hpf (0-5) H 01/19/24 09:28 Amorphous Sediment Not Reportable 01/19/24 09:28 Urine Bacteria 3+ /hpf (NONE) H 01/19/24 09:28 Urine Mucus Trace /hpf 01/19/24 09:28 Adenovirus (PCR) Not detected (NOT DETECT) 01/19/24 09:19 C. pneumoniae DNA (PCR) Not detected (NOT DETECT) 01/19/24 09:19 Coronavirus 229E (PCR) Not detected (NOT DETECT) 01/19/24 09:19 Human Metapneumovir PCR Not detected (NOT DETECT) 01/19/24 09:19 Influenza A (H1) PCR Not detected (NOT DETECT) 01/19/24 09:19 Influ A (H1/09) PCR Not detected (NOT DETECT) 01/19/24 09:19 Influenza A (H3) PCR Not detected (NOT DETECT) 01/19/24 09:19 Influenza Type A (PCR) Not detected (NOT DETECT) 01/19/24 09:19 Influenza Type B (PCR) Not detected (NOT DETECT) 01/19/24 09:19 M. pneumoniae (PCR) Not detected (NOT DETECT) 01/19/24 09:19 Parainfluenza 1 (PCR) Not detected (NOT DETECT) 01/19/24 09:19 Parainfluenza 2 (PCR) Not detected (NOT DETECT) 01/19/24 09:19 Parainfluenza 3 (PCR) Not detected (NOT DETECT) 01/19/24 09:19 Parainfluenza 4 (PCR) Not detected (NOT DETECT) 01/19/24 09:19 RSV Type A (PCR) Not detected (NOT DETECT) 01/19/24 09:19 RSV Type B (PCR) Not detected (NOT DETECT) 01/19/24 09:19 Entero/Rhino (PCR) Not detected (NOT DETECT) 01/19/24 09:19 SARS-CoV-2 (PCR) Not detected (NOT DETECT) 01/19/24 09:19 SARS-CoV-2 Ag (Rapid) negative (Negative) 01/22/24 12:06 Vitals Last Vital Signs Temp 97.7 F 01/26/24 11:14 Pulse 55 L 01/26/24 11:14 Resp 16 01/26/24 11:14 BP 97/65 01/26/24 11:14 Pulse Ox 94 01/26/24 11:14 O2 Del Method Room Air 01/26/24 11:14 O2 Flow Rate 1.5 01/21/24 10:19 Discharge Plan Discharge Patient Disposition: Xfer SNF Condition: Stable Prescriptions: New diazepam 5 mg Tablet 5 mg PO Q8H PRN (Reason: Anxiety) Qty: 20 0RF insulin glargine [Lantus U-100 Insulin] 100 unit/mL Solution 20 unit SUBCUT QAM Qty: 15 0RF Continued acetaminophen 325 mg Tablet 650 mg PO Q6H PRN (Reason: Pain) albuterol sulfate 90 mcg/actuation HFA aerosol inhaler 1 puff INHALATION Q4H PRN (Reason: Wheezing) Senokot 8.6 mg Tablet 8.6 mg PO BID melatonin 3 mg Tablet 3 mg PO BEDTIME clopidogrel 75 mg tablet 75 mg PO DAILY bupropion HCl 100 mg tablet 100 mg PO BID Milk of Magnesia 400 mg/5 mL Suspension 30 ml PO DAILY PRN (Reason: Constipation) trazodone 100 mg Tablet 100 mg PO BEDTIME Dulcolax (bisacodyl) 10 mg Suppository 10 mg CO DAILY PRN (Reason: Constipation) Fleet Enema 19-7 gram/118 mL Enema 118 ml CO DAILY PRN (Reason: Constipation) Nitrostat 0.4 mg Tablet, Sublingual 0.4 mg SUBLINGUAL Q5M PRN (Reason: Chest Pain) Rx Instructions: do not exceed 3 doses per episode Dulcolax (bisacodyl) 5 mg Tablet,Delayed Release (Dr/Ec) 10 mg PO BID PRN (Reason: Constipation) ondansetron 4 mg Tablet,Disintegrating 4 mg PO Q8H PRN (Reason: Nausea) oxycodone 5 mg Tablet 5 mg PO Q4H PRN (Reason: Pain) furosemide 40 mg tablet 40 mg PO DAILY atorvastatin 40 mg tablet 40 mg PO DAILY tizanidine 4 mg tablet 4 mg PO Q8H PRN (Reason: Nausea) amiodarone 200 mg tablet 200 mg PO DAILY spironolactone 25 mg tablet 25 mg PO DAILY tamsulosin 0.4 mg capsule 0.4 mg PO DAILY metoprolol succinate 25 mg tablet extended release 24 hr 12.5 mg PO DAILY insulin lispro 100 unit/mL insulin pen See Rx Instructions .ROUTE .COMPLEX Rx Instructions: INJECT 10 UNITS SUBCUTANEOUSLY BEFORE MEALS AND AT BEDTIME AND PER SLIDING SCALE:BP 150-199=2 UNITS, 200-249=4 UNITS, 250-299=6 UNITS, 300-349=8 UNITS, 350-399=10 UNITS, 400-499=12 UNITS. Eliquis 5 mg tablet 5 mg PO BID Discontinued buspirone 10 mg tablet 10 mg PO PRN PRN (Reason: Anxiety) insulin glargine [Lantus Solostar U-100 Insulin] 100 unit/mL (3 mL) insulin pen See Rx Instructions .ROUTE .COMPLEX Rx Instructions: INJECT 20 UNITS IN THE MORNING AND 18 UNITS AT BEDTIME. Discharge Orders: Discharge Order (Routine); Ordered 01/26/24 Ordered By: Jordin Castillo Referrals: Justin May MD [Primary Care Provider] - Discharge Diet: As Directed Discharge Activity: Increase activity as tolerated Activity Restrictions/Additional Instructions: Ertapenem 1 g IV/IM daily for 4 days, there for 4 doses. Take all medicine as prescribed Return for any concerns Follow-up with primary care provider at nursing home facility, then primary care physician following nursing facility stay Straight cath 3 times daily Discharge Attestations Time Spent in Discharge Care*: greater than 30 min Quality Metrics Clinical Quality Measures [ No reported AMI, CVA or VTE this stay] Coding Level of Care Code 67627 Total time (in minutes) for Discharge: 45 Diagnoses Sepsis A41.9 CAD (coronary artery disease) I25.10 Acute encephalopathy G93.40 Complicated UTI (urinary tract infection) N39.0 Atrial fibrillation I48.91 Prolonged QT interval R94.31
[2024-01-26] MEDS: ertapenem 1,000 MG in sodium chloride 0.9% (plus) 100 ML 200 MG IV (13:42)
[2024-01-26 14:06] VITALS: BP 97/65; PULSE 55; RESP 16; TEMP 36.5; O2SAT 94
--- NOTE | 2024-01-26 14:34 | PC.NURSE ---
Patient discharged to SNF. Report called to Silvia. New IV placed prior to discharge for continued IV antibiotics therapy. Instructed patient on need for antibiotics and iv. Patient verbalized understanding. Family at bedside.
== END 2024-01-26 14:33 | disposition skilled nursing facility (03) | DRG 871 ==
LOC: ER 13:52 → ICU 13:55 → CSU 01-20 13:40
PROVIDERS: Internal Medicine; Admitting Provider Internal Medicine; Emergency Provider Family Medicine; PCP Family Medicine; Visit Provider Internal Medicine
DX: A41.9 Sepsis, unspecified organism (principal); G93.41 Metabolic encephalopathy; N12 Tubulo-interstitial nephritis, not specified as acute or chronic; I24.89 Other forms of acute ischemic heart disease; E87.20 Acidosis, unspecified; I25.10 Atherosclerotic heart disease of native coronary artery without angina pectoris; I48.91 Unspecified atrial fibrillation; R33.9 Retention of urine, unspecified; Z95.1 Presence of aortocoronary bypass graft; Z87.440 Personal history of urinary (tract) infections; Z79.02 Long term (current) use of antithrombotics/antiplatelets; Z79.01 Long term (current) use of anticoagulants
CPT/HCPCS: 36415; 36416; 36600; 51702; 71045; 74177; 80048; 80051; 80053; 81001; 81015; 82330; 82550; 82805; 82962; 83605; 83690; 83735; 84484; 85025; 85730; 87040; 87077; 87086; 87186; 87426; 87486; 87581; 87633; 93005; 96365; 96366; 96367; 96372; 96375; 96376; 97110; 97116; 97161; 97167; 97530; 97535; 99291; A4222; C9113; J0283; J1200; J1335; J1644; J1815; J2185; J2405; J2919; J7030; Q9967

== ENCOUNTER 2024-03-02 21:23 | Inpatient (IN) | payer MEDICARE, SELFPAY ==
[2024-03-02 21:28] VITALS: BP 121/79; PULSE 88; RESP 20; TEMP 38.3; O2SAT 99
[2024-03-02 21:33] VITALS: BP 128/70; PULSE 86; RESP 14; O2SAT 92
--- NOTE | 2024-03-02 22:11 | XRR_ITS ---
PROCEDURE INFORMATION: Exam: XR Chest Exam date and time: 03/02/2024 10:20 PM Age: 63 years old Clinical indication: Prior surgery; Surgery date: 6+ months; Surgery type: Cabg; Patient HX: Fever with general weakness; Additional info: Fever AMS TECHNIQUE: Imaging protocol: Radiologic exam of the chest. Views: 1 view. COMPARISON: CR XR chest 1V portable [id number] 01/19/2024 11:07 AM FINDINGS: Lungs: Chronic reticular interstitial changes. Negative for focal consolidation. Pleural spaces: Unremarkable. No pleural effusion. No pneumothorax. Heart/Mediastinum: Cardiomegaly. CABG. Bones/joints: Unremarkable. XR/XR chest 1V portable [id number] IMPRESSION: Negative for focal acute pulmonary disease.
[2024-03-02 22:18] LABS: Basophils # 0.1 10^3/uL (0.0-0.1); Basophils % 0.4 %; Eosinophils # 0.1 10^3/uL (0.0-0.8); Eosinophils % 0.8 %; Hematocrit 42.2 % (37-53); Lymphocytes # 1.3 10^3/uL (0.8-4.8); Lymphocytes % 11.4 %; Mean Corpuscular HGB Conc 32.7 g/dL (30-55); Mean Corpuscular Hemoglobin 29.2 pg (27-33); Mean Corpuscular Volume 89.4 fl (82-101); Monocytes # 0.8 10^3/uL (0.2-0.9); Monocytes % 7.1 %; Neutrophils # 9.38 10^3/uL (1.8-7.7); Neutrophils % 79.6 %; Nucleated Red Blood Cells % 0 %; Platelet Count 67 10^3/cmm (157-399); Red Blood Count 4.72 10^6/uL (3.85-5.65); Red Cell Distribution Width 14.4 % (12.1-15.1); White Blood Count 11.77 10^3/uL (3.29-11.43)
[2024-03-02 22:33] LABS: Lactic Sepsis W/Reflex 1.7 mmol/L (0.5-2.2)
[2024-03-02 22:34] LABS: Alanine Aminotransferase 9 U/L (0-41); Albumin Level 3.5 g/dL (3.5-5.2); Alkaline Phosphatase 135 U/L (40-130); Anion Gap 17.1 (5-19); Aspartate Amino Transferase 12 U/L (0-40); Blood Urea Nitrogen 16 mg/dL (8-23); C Reactive Protein 55.7 mg/L (0.0-4.9); Calcium 9.1 mg/dL (8.5-10.5); Carbon Dioxide 25 mmol/L (22-29); Chloride 100 mmol/L (98-107); Globulin 3.6 g/dL (1.3-4.6); Glomerular Filtration Rate 97.6 mL/min (90-130); Glucose 105 mg/dL (65-115); Osmolality Calculated 288 mOsm/kg (285-295); Potassium 4.1 mmol/L (3.5-5.1); Sodium 138 mmol/L (136-145); Total Bilirubin 0.7 mg/dL (0.15-1.2); Total Protein 7.1 g/dL (6.6-8.7)
--- NOTE | 2024-03-02 22:45 | W.ED.FEVER ---
HPI - Fever General: Chief Complaint: Fever Stated Complaint: possible sepsis Time Seen by Provider: 03/02/24 21:29 History of Present Illness: 63-year-old male with a known history of ESBL E. coli urinary tract infection as well as Pseudomonas urinary tract infection. He is in a group home environment. He presents with a significant fever, mild mental status changes, and generalized weakness. Fever was 102 in the group home. No cough. No increased pain. No other symptoms. He got a first dose of antibiotics today after urine showed white blood cells on Monday or Monday in the group home. Related Data Home Medications Medication Instructions Recorded Confirmed amiodarone 200 mg tablet 200 mg PO DAILY 10/18/23 03/03/24 apixaban 5 mg tablet (Eliquis) 5 mg PO BID 10/18/23 03/03/24 atorvastatin 40 mg tablet 40 mg PO DAILY 10/18/23 03/03/24 furosemide 40 mg tablet 40 mg PO DAILY 10/18/23 03/03/24 insulin lispro 100 unit/mL See Rx Instructions .Route .COMPLEX 10/18/23 03/03/24 subcutaneous pen metoprolol succinate 25 mg 12.5 mg PO DAILY 10/18/23 03/03/24 tablet,extended release 24 hr spironolactone 25 mg tablet 25 mg PO DAILY 10/18/23 03/03/24 tamsulosin 0.4 mg capsule 0.4 mg PO DAILY 10/18/23 03/03/24 tizanidine 4 mg tablet 4 mg PO Q8H PRN Nausea 10/18/23 03/03/24 acetaminophen 325 mg tablet 650 mg PO Q6H PRN Pain 01/19/24 03/03/24 albuterol sulfate 90 mcg/actuation 1 puff inhalation Q4H PRN Wheezing 01/19/24 03/03/24 aerosol inhaler bisacodyl 10 mg rectal suppository 10 mg NC DAILY PRN Constipation 01/19/24 03/03/24 (Dulcolax (bisacodyl)) bisacodyl 5 mg tablet,delayed 10 mg PO BID PRN Constipation 01/19/24 03/03/24 release (Dulcolax (bisacodyl)) bupropion HCl 100 mg tablet 100 mg PO BID 01/19/24 03/03/24 clopidogrel 75 mg tablet 75 mg PO DAILY 01/19/24 03/03/24 magnesium hydroxide 400 mg/5 mL 30 ml PO DAILY PRN Constipation 01/19/24 03/03/24 oral suspension (Milk of Magnesia) melatonin 3 mg tablet 3 mg PO BEDTIME 01/19/24 03/03/24 nitroglycerin 0.4 mg sublingual 0.4 mg sublingual Q5M PRN Chest 01/19/24 03/03/24 tablet (Nitrostat) Pain ondansetron 4 mg disintegrating 4 mg PO Q8H PRN Nausea 01/19/24 03/03/24 tablet oxycodone 5 mg tablet 5 mg PO Q4H PRN Pain 01/19/24 03/03/24 sennosides 8.6 mg tablet (Senokot) 8.6 mg PO BID 01/19/24 03/03/24 sodium phosphates 19 gram-7 118 ml NC DAILY PRN Constipation 01/19/24 03/03/24 gram/118 mL enema (Fleet Enema) trazodone 100 mg tablet 100 mg PO BEDTIME 01/19/24 03/03/24 Previous Rx's Medication Instructions Recorded diazepam 5 mg tablet 5 mg PO Q8H PRN Anxiety #20 tabs 01/26/24 insulin glargine 100 unit/mL 20 unit (0.2 mL) SUBCUT QAM #15 mL 01/26/24 subcutaneous solution (Lantus U-100 Insulin) Allergies Allergy/AdvReac Type Severity Reaction Status Date / Time empagliflozin Allergy Unknown Verified 03/03/24 02:38 [From Jardiance] Iodinated Contrast Media Allergy ADR-Vomitin Verified 01/24/24 07:28 g alprazolam [From Xanax] AdvReac Intermediate ADR-Halluci Verified 01/24/24 07:28 [facility] Medical History (Updated 03/03/24 @ 16:27 by Juan Carlos Beckett DO) Type 2 diabetes mellitus Urinary retention UTI due to extended-spectrum beta lactamase (ESBL) producing Escherichia coli Atrial fibrillation CAD (coronary artery disease) Surgical History Hx of CABG Social History Alcohol intake: never Substance/Drug Use: never Household members: significant other Physical Exam Const: GENERAL APPEARANCE: cooperative, lethargic, ill appearing and frail appearing ORIENTATION/CONSCIOUSNESS: Yes lethargic HENMT: COMMON NORMALS: normocephalic, atraumatic and Normal external nose present HEAD & SCALP: normocephalic and atraumatic FACE & SINUS: normal facial exam and face symmetric NOSE: Normal external nose present Eye: COMMON NORMALS: Equal, round and reactive pupils present and EOMs intact bilaterally PUPIL: Yes Equal, round and reactive pupils present Neck/C-Spine: GENERAL: Yes trachea midline Chest: CHEST: Yes Symmetrical chest wall rise Resp: COMMON NORMALS: normal respiratory effort, No retractions, No use of accessory muscles and clear to auscultation bilaterally AUSCULTATION: clear to auscultation bilaterally Cardio: COMMON NORMALS: regular rate and regular rhythm RATE: regular rate RHYTHM: regular rhythm GI: COMMON NORMALS: Normal to inspection, nondistended, normoactive bowel sounds present Extremity: COMMON NORMALS: no pedal edema Neuro: TITO COMA SCALE: document GCS findings Lind[place] coma scale eye opening: Spontaneous [place] coma scale verbal response: Orientated [place] coma scale motor response: Obey commands Lind[place] coma scale total score: 15 SENSORIUM/ORIENTATION: Yes lethargic SENSORY EXAM: Yes extremities (intact) Psych: COMMON NORMALS: speech normal SPEECH: Yes normal speech Skin: COMMON NORMALS: no rashes or lesions noted GENERAL SKIN EXAM: no rashes or lesions noted Course Vital Signs: Vital signs: Vital Signs Temperature 100.7 F H 03/03/24 15:57 Pulse Rate 104 H 03/03/24 15:57 Respiratory Rate 15 03/03/24 11:28 Blood Pressure 130/69 03/03/24 15:57 Pulse Oximetry 92 03/03/24 15:57 Oxygen Delivery Me thod Room Air 03/03/24 15:57 MDM - Fever Medical Decision Making 63 year old male with a history of difficult to treat urinary tract infections, 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 He presents with a significant fever and some mental status changes. He is normotensive, slightly tachycardic. He received a sepsis bolus here. White blood cell count is 12. Lactic acid is only 1.7. CRP is 56. Respiratory panel is negative. Chest X-ray is negative for acute infiltrate. Your analysis shows greater than 100 white blood cells and three plus leukocyte esterase. He is given antibiotics in the ER. He'll be admitted given his history of uti that seem to only respond to IV antibiotics. Lab Data 03/02/24 21:00 03/02/24 21:00 Radiology Impressions Chest X-Ray 03/02/24 22:11 IMPRESSION: Negative for focal acute pulmonary disease. Laboratory Results WBC 11.77 10^3/uL (3.29-11.43) H 03/02/24 21:00 RBC 4.72 10^6/uL (3.85-5.65) 03/02/24 21:00 Hgb 13.80 g/dL (11.27-16.99) 03/02/24 21:00 Hct 42.2 % (37-53) 03/02/24 21:00 MCV 89.4 fl (82-101) 03/02/24 21:00 MCH 29.2 pg (27-33) 03/02/24 21:00 MCHC 32.7 g/dL (30-55) 03/02/24 21:00 RDW 14.4 % (12.1-15.1) 03/02/24 21:00 Plt Count 67 10^3/cmm (157-399) L 03/02/24 21:00 MPV 12.0 fL (7.4-10.4) H 03/02/24 21:00 Neut % (Auto) 79.6 % 03/02/24 21:00 Lymph % (Auto) 11.4 % 03/02/24 21:00 [place] % (Auto) 7.1 % 03/02/24 21:00 Eos % (Auto) 0.8 % 03/02/24 21:00 Baso % (Auto) 0.4 % 03/02/24 21:00 Neut # (Auto) 9.38 10^3/uL (1.8-7.7) H 03/02/24 21:00 Lymph # (Auto) 1.3 10^3/uL (0.8-4.8) 03/02/24 21:00 [place] # (Auto) 0.8 10^3/uL (0.2-0.9) 03/02/24 21:00 Eos # (Auto) 0.1 10^3/uL (0.0-0.8) 03/02/24 21:00 Baso # (Auto) 0.1 10^3/uL (0.0-0.1) 03/02/24 21:00 Nucleated RBC % (auto) 0 % 03/02/24 21:00 Nucleated RBCs # 0.0 /100WBC 03/02/24 21:00 Sodium 138 mmol/L (136-145) 03/02/24 21:00 Potassium 4.1 mmol/L (3.5-5.1) 03/02/24 21:00 Chloride 100 mmol/L (98-107) 03/02/24 21:00 Carbon Dioxide 25 mmol/L (22-29) 03/02/24 21:00 Anion Gap 17.1 (5-19) 03/02/24 21:00 BUN 16 mg/dL (8-23) 03/02/24 21:00 Creatinine 0.8 mg/dL (0.7-1.2) 03/02/24 21:00 GFR Calculation 97.6 mL/min (90-130) 03/02/24 21:00 Glucose 105 mg/dL (65-115) 03/02/24 21:00 Calculated Osmolality 288 mOsm/kg (285-295) 03/02/24 21:00 Lactic Acid 1.7 mmol/L (0.5-2.2) 03/02/24 21:00 Calcium 9.1 mg/dL (8.5-10.5) 03/02/24 21:00 Total Bilirubin 0.7 mg/dL (0.15-1.2) 03/02/24 21:00 AST 12 U/L (0-40) 03/02/24 21:00 ALT 9 U/L (0-41) 03/02/24 21:00 Alkaline Phosphatase 135 U/L (40-130) H 03/02/24 21:00 C-Reactive Protein 55.7 mg/L (0.0-4.9) H 03/02/24 21:00 Total Protein 7.1 g/dL (6.6-8.7) 03/02/24 21:00 Albumin 3.5 g/dL (3.5-5.2) 03/02/24 21:00 Globulin 3.6 g/dL (1.3-4.6) 03/02/24 21:00 Procalcitonin 0.18 ng/mL (0-0.5) 03/02/24 21:50 Urine Color Yellow (Yellow) 03/03/24 00:24 Urine Appearance Cloudy (CLEAR) A 03/03/24 00:24 Urine pH 5.5 (5-7) 03/03/24 00:24 Ur Specific [place] 1.012 (1.005-1.030) 03/03/24 00:24 Urine Protein 1+ (Negative) A 03/03/24 00:24 Urine Glucose (UA) Negative (Normal) 03/03/24 00:24 Urine Ketones Negative (Negative) 03/03/24 00:24 Urine Blood 3+ (Negative) A 03/03/24 00:24 Urine Nitrate Negative (Negative) 03/03/24 00:24 Urine Bilirubin Negative (Negative) 03/03/24 00:24 Urine Urobilinogen 1.0 mg/dL (Negative) 03/03/24 00:24 Ur Leukocyte Esterase 3+ (Negative) A 03/03/24 00:24 Urine RBC 21-50 /hpf (0-2) H 03/03/24 00:24 Urine WBC >100 /hpf (0-5) H 03/03/24 00:24 Ur Squamous Epith Cells 0-5 /hpf (0-5) 03/03/24 00:24 Amorphous Sediment Not Reportable 03/03/24 00:24 Urine Bacteria Exceeds /hpf (NONE) 03/03/24 00:24 Hyaline Casts 1.21 /lpf 03/03/24 00:24 Adenovirus (PCR) Not detected (NOT DETECT) 03/02/24 23:37 C. pneumoniae DNA (PCR) Not detected (NOT DETECT) 03/02/24 23:37 Coronavirus 229E (PCR) Not detected (NOT DETECT) 03/02/24 23:37 Human Metapneumovir PCR Not detected (NOT DETECT) 03/02/24 23:37 Influenza A (H1) PCR Not detected (NOT DETECT) 03/02/24 23:37 Influ A (H1/09) PCR Not detected (NOT DETECT) 03/02/24 23:37 Influenza A (H3) PCR Not detected (NOT DETECT) 03/02/24 23:37 Influenza Type A (PCR) Not detected (NOT DETECT) 03/02/24 23:37 Influenza Type B (PCR) Not detected (NOT DETECT) 03/02/24 23:37 M. pneumoniae (PCR) Not detected (NOT DETECT) 03/02/24 23:37 Parainfluenza 1 (PCR) Not detected (NOT DETECT) 03/02/24 23:37 Parainfluenza 2 (PCR) Not detected (NOT DETECT) 03/02/24 23:37 Parainfluenza 3 (PCR) Not detected (NOT DETECT) 03/02/24 23:37 Parainfluenza 4 (PCR) Not detected (NOT DETECT) 03/02/24 23:37 RSV Type A (PCR) Not detected (NOT DETECT) 03/02/24 23:37 RSV Type B (PCR) Not detected (NOT DETECT) 03/02/24 23:37 Entero/Rhino (PCR) Not detected (NOT DETECT) 03/02/24 23:37 SARS-CoV-2 (PCR) Not detected (NOT DETECT) 03/02/24 23:37 All radiology interpretation(s) finalized by discharge Discharge Plan Discharge Patient Disposition: Admitted As Inpatient Admit Provider: Juanito Hunter Clinical Impression: Complicated UTI (urinary tract infection), Acute metabolic encephalopathy Condition: Serious Coding Level of Care Code ED Legal Writing Professor for Allan Person
[2024-03-02] MEDS: meropenem 1,000 mg SDV 1000 MG IVP (23:19)
[2024-03-02] MEDS: sodium chloride 0.9% 1,000 ML 999 ML IV (23:20)
[2024-03-02] MEDS: vancomycin 1,000 MG in sodium chloride 0.9% 250 ML 250 MG IV (23:24)
[2024-03-02 23:36] VITALS: BP 128/70; PULSE 86; RESP 16; TEMP 37.4; O2SAT 94
[2024-03-03] VITALS (11 sets, daily range): BP systolic 93–135; BP diastolic 57–81; PULSE 71–104; RESP 13–19; TEMP 37.1–39.4; O2SAT 90–96; BMI 27.8
[2024-03-03 00:31] LABS: Charge for UA Resulting for Rev
[2024-03-03 00:33] LABS: Bilirubin Urine Negative (Negative); Blood Urine 3+ (Negative); Glucose Urine UA Negative (Normal); Ketones Urine Negative (Negative); Leukocyte Esterase Urine 3+ (Negative); Nitrate Urine Negative (Negative); Protein Urine 1+ (Negative); Specific Gravity, Urine 1.012 (1.005-1.030); Urine Appearance Cloudy (CLEAR); Urine Color Yellow (Yellow); pH Urine 5.5 (5-7)
[2024-03-03 00:39] LABS: Bacteria Urine EXCEEDS /hpf; Hyaline Casts Urine 1.21 /lpf; RBC Urine 21-50 /hpf (0-2); Squamous Epithelial Cell Urine 0-5 /hpf (0-5); WBC Urine >100 /hpf (0-5)
[2024-03-03 00:47] LABS: Add Urine Culture? Yes
--- NOTE | 2024-03-03 01:24 | PM.HP ---
Providers/Chief Complaint Primary Care Provider: Justin May MD Chief Complaint: possible sepsis History of Present Illness Nunu Hernandez is a 63 year old male with a past medical history significant for coronary artery disease with history of CABG, urinary retention, recurrent ESBL urinary tract infections, atrial fibrillation, and multiple other comorbidities who presents from nursing facility with reported lethargy and altered mental status x 1 to 2 days. Upon assessment, patient slightly lethargic. He is oriented to self but not to situation. Further collateral information collected from ED provider as well as chart review. Patient was reportedly febrile at the nursing facility with a temperature of 102. He was reportedly confused and very weak. Patient denies other alleviating or aggravating factors. Denies fevers, chills, nausea or emesis. In the emergency department, patient was found to be febrile with temperature 102.0. Urinalysis obtained consistent with UTI. Started on meropenem. Review of Systems Narrative: A complete review of systems was obtained and is negative except as stated in HPI. Medications/Allergies Home Medications Medication Instructions Recorded Confirmed Last Taken Type amiodarone 200 mg tablet 200 mg PO DAILY 10/18/23 03/03/24 01/18/24 History apixaban 5 mg tablet (Eliquis) 5 mg PO BID 10/18/23 03/03/24 01/18/24 History atorvastatin 40 mg tablet 40 mg PO DAILY 10/18/23 03/03/24 01/18/24 History furosemide 40 mg tablet 40 mg PO DAILY 10/18/23 03/03/24 01/18/24 History insulin lispro 100 unit/mL See Rx Instructions .Route .COMPLEX 10/18/23 03/03/24 01/18/24 History subcutaneous pen metoprolol succinate 25 mg 12.5 mg PO DAILY 10/18/23 03/03/24 01/18/24 History tablet,extended release 24 hr spironolactone 25 mg tablet 25 mg PO DAILY 10/18/23 03/03/24 01/18/24 History tamsulosin 0.4 mg capsule 0.4 mg PO DAILY 10/18/23 03/03/24 01/18/24 History tizanidine 4 mg tablet 4 mg PO Q8H PRN Nausea 10/18/23 03/03/24 10/17/23 History acetaminophen 325 mg tablet 650 mg PO Q6H PRN Pain 01/19/24 03/03/24 Unknown History albuterol sulfate 90 mcg/actuation 1 puff inhalation Q4H PRN Wheezing 01/19/24 03/03/24 Unknown History aerosol inhaler bisacodyl 10 mg rectal suppository 10 mg NE DAILY PRN Constipation 01/19/24 03/03/24 Unknown History (Dulcolax (bisacodyl)) bisacodyl 5 mg tablet,delayed 10 mg PO BID PRN Constipation 01/19/24 03/03/24 Unknown History release (Dulcolax (bisacodyl)) bupropion HCl 100 mg tablet 100 mg PO BID 01/19/24 03/03/24 01/18/24 History clopidogrel 75 mg tablet 75 mg PO DAILY 01/19/24 03/03/24 01/18/24 History magnesium hydroxide 400 mg/5 mL 30 ml PO DAILY PRN Constipation 01/19/24 03/03/24 Unknown History oral suspension (Milk of Magnesia) melatonin 3 mg tablet 3 mg PO BEDTIME 01/19/24 03/03/24 01/18/24 History nitroglycerin 0.4 mg sublingual 0.4 mg sublingual Q5M PRN Chest 01/19/24 03/03/24 Unknown History tablet (Nitrostat) Pain ondansetron 4 mg disintegrating 4 mg PO Q8H PRN Nausea 01/19/24 03/03/24 Unknown History tablet oxycodone 5 mg tablet 5 mg PO Q4H PRN Pain 01/19/24 03/03/24 Unknown History sennosides 8.6 mg tablet (Senokot) 8.6 mg PO BID 01/19/24 03/03/24 01/18/24 History sodium phosphates 19 gram-7 118 ml NE DAILY PRN Constipation 01/19/24 03/03/24 Unknown History gram/118 mL enema (Fleet Enema) trazodone 100 mg tablet 100 mg PO BEDTIME 01/19/24 03/03/24 Unknown History diazepam 5 mg tablet 5 mg PO Q8H PRN Anxiety #20 tabs 01/26/24 03/03/24 Unknown Rx insulin glargine 100 unit/mL 20 unit (0.2 mL) SUBCUT QAM #15 mL 01/26/24 03/03/24 Unknown Rx subcutaneous solution (Lantus U-100 Insulin) Allergies Allergy/AdvReac Type Severity Reaction Status Date / Time empagliflozin Allergy Unknown Verified 03/03/24 02:38 [From Jardiance] Iodinated Contrast Media Allergy ADR-Vomitin Verified 01/24/24 07:28 g alprazolam [From Xanax] AdvReac Intermediate ADR-Halluci Verified 01/24/24 07:28 nating PFSH Acute PFSH: Medical History (Updated 03/03/24 @ 04:49 by Juanito Hunter MD) Type 2 diabetes mellitus Urinary retention UTI due to extended-spectrum beta lactamase (ESBL) producing Escherichia coli Atrial fibrillation CAD (coronary artery disease) Surgical History Hx of CABG Social History Alcohol intake: never Substance/Drug Use: never Household members: significant other Vitals/I&O/Wt Last Vital Signs Temp 99.3 F 03/02/24 23:36 Pulse 86 03/02/24 23:36 Resp 16 03/02/24 23:36 BP 128/70 03/02/24 23:36 Pulse Ox 94 03/02/24 23:36 O2 Del Method Room Air 03/02/24 23:36 03/02/24 03/02/24 03/03/24 14:59 22:59 06:59 Intake Total 250 / 250 Balance 250 / 250 Physical Exam Narrative: General: Patient is lethargic. Awakens to voice. Encephalopathic. Head: Normocephalic. Atraumatic. EOM intact. Dry mucous membranes. Neck: No JVD. Cardiovascular: RRR. No gallops. No murmurs. No peripheral edema. Lungs: Clear to auscultation, no use of accessory muscles, no crackles or wheezes. Skin: No jaundice. No rashes. Abdomen: Normal bowel sounds, abdomen soft and nontender. Genito Urinary: Genital exam not performed since complaints not related. Rectal: Rectal exam not performed since no symptoms indicated blood loss. Extremities: No cyanosis or clubbing. Musculoskeletal: No swollen or erythematous joints. Neurological: Moves all 4 extremities. No myoclonus. Data 03/02/24 21:00 03/02/24 21:00 Micro: Microbiology 03/02/24 23:50 Blood Culture - Preliminary Blood SPECIMEN COLLECTED 03/02/24 23:48 Blood Culture - Preliminary Blood SPECIMEN COLLECTED A&P Assessment and plan (1) Complicated UTI (urinary tract infection): Acute complicated urinary tract infection History of recurrent ESBL UTIs Follow urine culture Start meropenem (2) Acute metabolic encephalopathy: Treat underlying infection Hold sedating medications including trazodone, Zanaflex and oxycodone Hold Lasix and Aldactone due to poor oral intake, restart when clinically indicated Supportive care (3) Atrial fibrillation: Paroxysmal atrial fibrillation Continue amiodarone for rate/rhythm control Continue metoprolol for rate control Continue apixaban for stroke prophylaxis (4) CAD (coronary artery disease): Continue high intensity statin Continue Plavix (5) Anxiety: Continue home Valium as needed, may reduce dose pending clinical course (6) Type 2 diabetes mellitus: Continue Lantus at reduced home dose Sliding-scale insulin correction Plan DVT prophylaxis: Apixaban Attestations Medical Necessity Statement*: Patient presents with lethargic, found to have acute complicated urinary tract infection in the setting of a known history of ESBL organisms with expected hospitalization not to cross 2 midnights for urine culture, blood cultures, and IV antibiotics. Coding Level of Care Code Acute Code for [facility] Diagnoses Complicated UTI (urinary tract infection) N39.0 Acute metabolic encephalopathy G93.41 Atrial fibrillation I48.91 CAD (coronary artery disease) I25.10 Anxiety F41.9 Type 2 diabetes mellitus E11.9
[2024-03-03 01:40] LABS: Adenovirus Not Detected (NOT DETECT); Chlamydia Pneumoniae Not Detected (NOT DETECT); Coronavirus 229E,HKU1,NL63,OC4 Not Detected (NOT DETECT); Human Metapneumovirus Not Detected (NOT DETECT); Human Rhinovirus/Enterovirus Not Detected (NOT DETECT); Influenza A Not Detected (NOT DETECT); Influenza A H1 Not Detected (NOT DETECT); Influenza A H1-2009 Not Detected (NOT DETECT); Influenza A H3 Not Detected (NOT DETECT); Influenza B Not Detected (NOT DETECT); Mycoplasma Pneumoniae Not Detected (NOT DETECT); Parainfluenza Virus Type 1 Not Detected (NOT DETECT); Parainfluenza Virus Type 2 Not Detected (NOT DETECT); Parainfluenza Virus Type 3 Not Detected (NOT DETECT); Parainfluenza Virus Type 4 Not Detected (NOT DETECT); Respiratory Syncytial Virus A Not Detected (NOT DETECT); Respiratory Syncytial Virus B Not Detected (NOT DETECT); SARS-COV-2 Not Detected (NOT DETECT)
[2024-03-03] MEDS: sodium chloride 0.9% 1,000 ML 999 ML IV (02:01)
[2024-03-03] MEDS: meropenem 1,000 mg SDV 1000 MG IVP ×3 (03:06→17:22)
[2024-03-03] MEDS: acetaminophen 325 mg Tablet 650 MG PO ×2 (03:06→09:54)
[2024-03-03 03:12] LABS: Procalcitonin 0.18 ng/mL (0-0.5)
--- NOTE | 2024-03-03 05:04 | PC.NURSE ---
Suicide risk assessment unable to complete due to patient's mental status and lethargic state.
--- NOTE | 2024-03-03 05:14 | PC.NURSE ---
Patient's life partner requested to speak with rn social services about help setting up home health with [facility]. Patient is currently living at [facility] for rehab due to decreased mobility. Stated insurance is slowing down the process.
[2024-03-03 06:10] LABS: Glucose Point of Care 220 mg/dL (70-110)
[2024-03-03] MEDS: ketorolac 30 mg/mL INJ 15 MG IVP (06:13)
--- NOTE | 2024-03-03 06:21 | PC.NURSE ---
Patient is refusing to wear his nasal cannula and stated I dont need that damn thing. Patient educated on importance of wearing oxygen. Physician notified. Will continue to monitor.
--- NOTE | 2024-03-03 06:36 | PC.NURSE ---
Physician agreeable to start 1:1 justification. Patient agitated and pulling at lines, not wearing oxygen with saturations dropping below normal limits.
[2024-03-03] MEDS: amiodarone 200 mg Tablet PO (07:59)
[2024-03-03] MEDS: apixaban 5 mg Tablet PO ×2 (07:59→17:22)
[2024-03-03] MEDS: sennosides 8.6 mg Tablet PO ×2 (07:59→17:22)
[2024-03-03] MEDS: tamsulosin 0.4 mg Capsule PO (07:59)
[2024-03-03] MEDS: atorvastatin 40 mg Tablet PO (07:59)
[2024-03-03] MEDS: clopidogrel 75 mg Tablet PO (08:00)
[2024-03-03] MEDS: insulin glargine 100 units/1 mL 16 UNIT SUBCUT (09:55)
[2024-03-03 11:45] LABS: Glucose Point of Care 241 mg/dL (70-110)
--- NOTE | 2024-03-03 12:03 | PM.MISC ---
Miscellaneous Note Note: seen today continue mgmt as per HnP pt retaining urine > 450 on straight cath pt used to straight cath at home but lately has not been as per significant other will place garcía he has known hx of urinary retention
--- NOTE | 2024-03-03 13:07 | PC.NURSE ---
The 1:1 sitter reports the pt is wanting to leave and requesting his SO be present. Call made to Erlinda to inform her of this and a message was left for her to call back.
--- NOTE | 2024-03-03 14:34 | PC.NURSE ---
This RN attempted to place pt back on telemetry monitoring after pt pulled it off. This RN explained the importance of telemetry and why we need to monitor. Pt refused stating I don't need to be monitor, I am right here. aware.
[2024-03-03] MEDS: ondansetron 2 mg/ML SDV 2 mL 4 MG IVP (15:50)
[2024-03-03 16:37] LABS: Glucose Point of Care 252 mg/dL (70-110)
[2024-03-03] MEDS: acetaminophen 1,000 MG/100 ML PIGGYBACK 400 MG IV (17:22)
[2024-03-03] MEDS: diazePAM 5 mg Tablet PO (17:22)
[2024-03-03 21:11] LABS: Glucose Point of Care 231 mg/dL (70-110)
[2024-03-04] VITALS (9 sets, daily range): BP systolic 100–120; BP diastolic 56–69; PULSE 65–100; RESP 16–20; TEMP 36.4–39.5; O2SAT 91–97
[2024-03-04] MEDS: acetaminophen 325 mg Tablet 650 MG PO ×3 (00:49→14:01)
[2024-03-04] MEDS: diazePAM 5 mg Tablet PO ×3 (01:09→17:14)
--- NOTE | 2024-03-04 01:21 | PC.NURSE ---
Patient is yelling out and not being compliant with care. Patient requested partner come in to be with him. Patient's life partner contacted by this nurse at 0120 about agitation and request to be here with him.
--- NOTE | 2024-03-04 01:21 | PC.NURSE ---
Inappropriate pt behavior: This nurse went into pt's room to recheck pt's temperature. Pt rolled over flat on his back, grabbed his penis, and stated, Please me and proceeded to grab this nurse's breast.
[2024-03-04] MEDS: ketorolac 30 mg/mL INJ 15 MG IVP (01:56)
[2024-03-04] MEDS: meropenem 1,000 mg SDV 1000 MG IVP ×3 (01:56→17:09)
[2024-03-04 05:16] LABS: Glucose Point of Care 195 mg/dL (70-110)
[2024-03-04] MEDS: insulin glargine 100 units/1 mL 16 UNIT SUBCUT (05:31)
[2024-03-04 06:24] LABS: Glucose Point of Care 176 mg/dL (70-110)
[2024-03-04 07:19] LABS: Basophils # 0.1 10^3/uL (0.0-0.1); Basophils % 0.4 %; Eosinophils % 0.1 %; Hematocrit 37.2 % (37-53); Lymphocytes # 1.6 10^3/uL (0.8-4.8); Lymphocytes % 11.6 %; Mean Corpuscular HGB Conc 32.3 g/dL (30-55); Mean Corpuscular Hemoglobin 29.1 pg (27-33); Mean Corpuscular Volume 90.1 fl (82-101); Monocytes # 1.1 10^3/uL (0.2-0.9); Neutrophils % 79.1 %; Nucleated Red Blood Cells % 0 %; Platelet Count 96 10^3/cmm (157-399); Red Blood Count 4.13 10^6/uL (3.85-5.65); Red Cell Distribution Width 14.6 % (12.1-15.1); White Blood Count 13.79 10^3/uL (3.29-11.43)
[2024-03-04 07:20] LABS: Anion Gap 14.9 (5-19); Blood Urea Nitrogen 19 mg/dL (8-23); Calcium 8.8 mg/dL (8.5-10.5); Carbon Dioxide 25 mmol/L (22-29); Chloride 102 mmol/L (98-107); Creatinine Clr Calc Pharmacy 94.0878; Glomerular Filtration Rate 85.2 mL/min (90-130); Glucose 188 mg/dL (65-115); Magnesium 1.7 mg/dL (1.7-2.3); Osmolality Calculated 293 mOsm/kg (285-295); Potassium 3.9 mmol/L (3.5-5.1); Sodium 138 mmol/L (136-145)
[2024-03-04] MEDS: atorvastatin 40 mg Tablet PO (08:00)
[2024-03-04] MEDS: tamsulosin 0.4 mg Capsule PO (08:00)
[2024-03-04] MEDS: amiodarone 200 mg Tablet PO (08:00)
[2024-03-04] MEDS: clopidogrel 75 mg Tablet PO (08:00)
[2024-03-04] MEDS: apixaban 5 mg Tablet PO ×2 (08:01→17:09)
--- NOTE | 2024-03-04 08:50 | P.PN_ITS ---
Subjective 2 Subjective: seen today pt requiring a sitter has been febrile last night but afebrile since morning Vitals/I&O/Wt Last Vital Signs Temp 97.5 F L 03/04/24 07:17 Pulse 70 03/04/24 07:17 Resp 18 03/04/24 07:17 BP 112/56 03/04/24 07:17 Pulse Ox 97 03/04/24 07:17 O2 Del Method Room Air 03/04/24 07:17 03/03/24 03/04/24 03/04/24 22:59 06:59 14:59 Intake Total 200 / 260 240 / 240 Output Total 325 / 750 800 / 1550 Balance -125 / -490 -800 / -1290 240 / 240 Weight last 48 hrs Weight 88.451 kg Weight 92.249 kg Weight 89.403 kg Weight 87.997 kg Physical Exam 2 Narrative: General: Wakes up and answers questions, but says he wants to sleep Head: Normocephalic. Atraumatic. EOM intact. Cardiovascular: RRR. No gallops. No murmurs. No peripheral edema. Lungs: Clear to auscultation, no use of accessory muscles, no crackles or wheezes. Abdomen: Normal bowel sounds, abdomen soft and nontender. Extremities: No cyanosis or clubbing. Musculoskeletal: No swollen or erythematous joints. Neurological: Moves all 4 extremities. No myoclonus. Urinary Catheter Management: 2-way Urethral: Cath Placed During This Visit: yes Reason for Continuing Indwelling Catheter: Acute Urinary Retention or Obstruction Urinary Catheter Date of Insertion: 03/03/24 Urinary Catheter Time of Insertion: 19:08 Data 03/04/24 06:51 03/04/24 06:51 Micro: Microbiology 03/03/24 00:24 Urine Culture - Preliminary Urine,Clean Catch Gram Negative Rods 03/02/24 23:50 Blood Culture - Preliminary Blood NEGATIVE TO DATE 03/02/24 23:48 Blood Culture - Preliminary Blood NEGATIVE TO DATE A&P Assessment and plan (1) Complicated UTI (urinary tract infection): Acute complicated urinary tract infection History of recurrent ESBL UTIs Follow urine culture Start meropenem (2) Acute metabolic encephalopathy: Treat underlying infection Hold sedating medications including trazodone, Zanaflex and oxycodone Hold Lasix and Aldactone due to poor oral intake, restart when clinically indicated Supportive care (3) Atrial fibrillation: Paroxysmal atrial fibrillation Continue amiodarone for rate/rhythm control Continue metoprolol for rate control Continue apixaban for stroke prophylaxis (4) CAD (coronary artery disease): Continue high intensity statin Continue Plavix (5) Anxiety: Continue home Valium as needed, may reduce dose pending clinical course (6) Type 2 diabetes mellitus: Continue Lantus at reduced home dose Sliding-scale insulin correction Plan DVT prophylaxis: Apixaban 03/04: UA positive for >100 WBC, Urine culture positive for gm miah rods continue on meropenem 1g q12h lantus 16 daily in am add accuchecks AC/HS Attestations 2 Medical Necessity Statement*: Altered mental status, UTI ESBL. Requires continued hospitalization Diagnoses Complicated UTI (urinary tract infection) N39.0 Acute metabolic encephalopathy G93.41 Atrial fibrillation I48.91 CAD (coronary artery disease) I25.10 Anxiety F41.9 Type 2 diabetes mellitus E11.9
[2024-03-04 11:38] LABS: Glucose Point of Care 247 mg/dL (70-110)
--- NOTE | 2024-03-04 11:50 | PC.SOCIAL ---
IMM IMM signed by patient's s/o at this time. Copy provided and copy placed in chart.
[2024-03-04 16:46] LABS: Glucose Point of Care 303 mg/dL (70-110)
[2024-03-04 16:55] LABS: Methicillin-Resist S.aureu PCR NOT DETECTED (NOT DETECTED)
[2024-03-04 20:48] LABS: Glucose Point of Care 299 mg/dL (70-110)
[2024-03-04] MEDS: oxyCODONE 5 mg IR Tab/Cap PO (20:58)
[2024-03-05] VITALS (9 sets, daily range): BP systolic 104–124; BP diastolic 66–75; PULSE 62–74; RESP 15–19; TEMP 36.6–37.5; O2SAT 93–99
[2024-03-05] MEDS: meropenem 1,000 mg SDV 1000 MG IVP ×3 (02:02→18:16)
[2024-03-05] MEDS: acetaminophen 325 mg Tablet 650 MG PO (04:03)
[2024-03-05 05:25] LABS: Blood Urea Nitrogen 12 mg/dL (8-23); Calcium 8.3 mg/dL (8.5-10.5); Carbon Dioxide 22 mmol/L (22-29); Chloride 101 mmol/L (98-107); Creatinine Clr Calc Pharmacy 141.1317; Glomerular Filtration Rate 136.1 mL/min (90-130); Glucose 207 mg/dL (65-115); Magnesium 1.8 mg/dL (1.7-2.3); Osmolality Calculated 288 mOsm/kg (285-295); Sodium 136 mmol/L (136-145)
[2024-03-05 05:27] LABS: Anion Gap 16.4 (5-19); Potassium 3.4 mmol/L (3.5-5.1)
[2024-03-05 06:29] LABS: Glucose Point of Care 215 mg/dL (70-110)
[2024-03-05] MEDS: insulin glargine 100 units/1 mL 16 UNIT SUBCUT (06:31)
[2024-03-05 08:27] LABS: Basophils % 0.4 %; Eosinophils # 0.1 10^3/uL (0.0-0.8); Eosinophils % 1.2 %; Hematocrit 36.3 % (37-53); Lymphocytes # 1.7 10^3/uL (0.8-4.8); Lymphocytes % 16.4 %; Mean Corpuscular HGB Conc 32.8 g/dL (30-55); Mean Corpuscular Hemoglobin 29.8 pg (27-33); Mean Corpuscular Volume 90.8 fl (82-101); Monocytes % 9.6 %; Neutrophils # 7.51 10^3/uL (1.8-7.7); Neutrophils % 71.8 %; Nucleated Red Blood Cells % 0 %; White Blood Count 10.47 10^3/uL (3.29-11.43)
[2024-03-05 08:31] LABS: Platelet Count 127 10^3/cmm (157-399)
[2024-03-05 08:32] LABS: Mean Platelet Volume 10.8 fL (7.4-10.4); Slide Review Slide Review Perform
[2024-03-05] MEDS: amiodarone 200 mg Tablet PO (09:59)
[2024-03-05] MEDS: clopidogrel 75 mg Tablet PO (09:59)
[2024-03-05] MEDS: apixaban 5 mg Tablet PO ×2 (09:59→18:16)
[2024-03-05] MEDS: tamsulosin 0.4 mg Capsule PO (09:59)
[2024-03-05] MEDS: metoprolol succinate ER (24 HR) 25 mg Tablet 12.5 MG PO (09:59)
[2024-03-05] MEDS: atorvastatin 40 mg Tablet PO (09:59)
[2024-03-05] MEDS: oxyCODONE 5 mg IR Tab/Cap PO ×3 (10:00→22:03)
--- NOTE | 2024-03-05 10:44 | P.PN_ITS ---
Subjective 2 Subjective: seen today no acute events overnight mental status is better and back to baseline at bedside urine culture sensitivity is pending Vitals/I&O/Wt Last Vital Signs Temp 98.2 F 03/05/24 07:45 Pulse 71 03/05/24 09:28 Resp 16 03/05/24 10:00 BP 120/72 03/05/24 07:45 Pulse Ox 99 03/05/24 09:28 O2 Del Method Nasal Cannula 03/05/24 09:28 03/04/24 03/05/24 03/05/24 22:59 06:59 14:59 Intake Total 240 / 960 360 / 1320 240 / 240 Output Total 850 / 850 550 / 1400 Balance -610 / 110 -190 / -80 240 / 240 Weight last 48 hrs Weight 88.932 kg Weight 88.451 kg Physical Exam 2 Narrative: General: AOx 3, at bedside Head: Normocephalic. Atraumatic. EOM intact. Cardiovascular: RRR. No gallops. No murmurs. No peripheral edema. Lungs: Clear to auscultation, no use of accessory muscles, no crackles or wheezes. Abdomen: Normal bowel sounds, abdomen soft and nontender. Extremities: No cyanosis or clubbing. Musculoskeletal: No swollen or erythematous joints. Neurological: Moves all 4 extremities. No myoclonus. Urinary Catheter Management: 2-way Urethral: Cath Placed During This Visit: yes Reason for Continuing Indwelling Catheter: Acute Urinary Retention or Obstruction Urinary Catheter Date of Insertion: 03/03/24 Urinary Catheter Time of Insertion: 19:08 Data 03/05/24 06:26 03/05/24 03:47 A&P Assessment and plan (1) Complicated UTI (urinary tract infection): Acute complicated urinary tract infection History of recurrent ESBL UTIs Follow urine culture Start meropenem (2) Acute metabolic encephalopathy: Treat underlying infection Hold sedating medications including trazodone, Zanaflex and oxycodone Hold Lasix and Aldactone due to poor oral intake, restart when clinically indicated Supportive care (3) Atrial fibrillation: Paroxysmal atrial fibrillation Continue amiodarone for rate/rhythm control Continue metoprolol for rate control Continue apixaban for stroke prophylaxis (4) CAD (coronary artery disease): Continue high intensity statin Continue Plavix (5) Anxiety: Continue home Valium as needed, may reduce dose pending clinical course (6) Type 2 diabetes mellitus: Continue Lantus at reduced home dose Sliding-scale insulin correction Plan DVT prophylaxis: Apixaban 03/05: UA positive for >100 WBC, Urine culture positive for gm miah rods continue on meropenem 1g q12h lantus 16 daily in am continue accuchecks AC/HS replete potassium remove garcía catheter, order straight cath 4x a day urine culture sensitivity pending, once available, will dc back to [place] pt pending insurance authorization Attestations 2 Medical Necessity Statement*: UTI ESBL. will be medically ready for discharge once urine culture results. Diagnoses Complicated UTI (urinary tract infection) N39.0 Acute metabolic encephalopathy G93.41 Atrial fibrillation I48.91 CAD (coronary artery disease) I25.10 Anxiety F41.9 Type 2 diabetes mellitus E11.9
[2024-03-05 10:53] LABS: Glucose Point of Care 239 mg/dL (70-110)
[2024-03-05 16:32] LABS: Glucose Point of Care 226 mg/dL (70-110)
[2024-03-05] MEDS: buPROPion SR (12 HR) 100 mg Tablet PO (18:16)
[2024-03-05 21:19] LABS: Glucose Point of Care 292 mg/dL (70-110)
[2024-03-06] VITALS (9 sets, daily range): BP systolic 97–127; BP diastolic 60–80; PULSE 58–84; RESP 16–20; TEMP 36.4–37.1; O2SAT 93–99
[2024-03-06] MEDS: meropenem 1,000 mg SDV 1000 MG IVP ×3 (02:39→18:36)
[2024-03-06] MEDS: insulin glargine 100 units/1 mL 16 UNIT SUBCUT (05:45)
[2024-03-06 06:42] LABS: Glucose Point of Care 266 mg/dL (70-110)
[2024-03-06] MEDS: diazePAM 5 mg Tablet PO (06:53)
[2024-03-06] MEDS: atorvastatin 40 mg Tablet PO (08:55)
[2024-03-06] MEDS: tamsulosin 0.4 mg Capsule PO (08:55)
[2024-03-06] MEDS: clopidogrel 75 mg Tablet PO (08:55)
[2024-03-06] MEDS: apixaban 5 mg Tablet PO ×2 (08:55→17:26)
[2024-03-06] MEDS: buPROPion SR (12 HR) 100 mg Tablet PO ×2 (08:55→17:26)
[2024-03-06] MEDS: metoprolol succinate ER (24 HR) 25 mg Tablet 12.5 MG PO (08:55)
[2024-03-06] MEDS: amiodarone 200 mg Tablet PO (08:56)
[2024-03-06] MEDS: FUROsemide 40 mg Tablet PO (09:49)
[2024-03-06 10:43] LABS: Glucose Point of Care 279 mg/dL (70-110)
--- NOTE | 2024-03-06 11:59 | P.PN_ITS ---
Subjective 2 Subjective: Nunu reports he is doing okay. He is weak, and would like to get back to rehabilitation at the nursing facility. He understands the need for IV antibiotics for his ESBL UTI. Medications: Reviewed: Yes Vitals/I&O/Wt Last Vital Signs Temp 97.7 F 03/06/24 04:00 Pulse 84 03/06/24 09:07 Resp 16 03/06/24 09:07 BP 123/80 03/06/24 07:37 Pulse Ox 99 03/06/24 09:07 O2 Del Method Room Air 03/06/24 09:07 03/05/24 03/06/24 03/06/24 22:59 06:59 14:59 Intake Total 120 / 410 Output Total 475 / 925 800 / 1725 Balance -355 / -515 -800 / -1315 Weight last 48 hrs Weight 87.906 kg Weight 88.932 kg Physical Exam 2 Narrative: General Exam no distress Neck is supple Cardiovascular regular rate and rhythm Lungs clear Abdomen is soft Extremities no sinus clubbing edema Urinary Catheter Management: 2-way Urethral: Cath Placed During This Visit: yes, but has since been removed by the nurse Reason for Continuing Indwelling Catheter: Decision to DC Catheter Urinary Catheter Date of Insertion: 03/03/24 Urinary Catheter Time of Insertion: 19:08 Date Urinary Catheter Removed: 03/05/24 Time Urinary Catheter Discontinued: 10:50 Data 03/05/24 06:26 03/05/24 03:47 Micro: Microbiology 03/05/24 13:28 Blood Culture - Preliminary Blood SPECIMEN COLLECTED 03/05/24 13:28 Blood Culture - Preliminary Blood SPECIMEN COLLECTED 03/03/24 00:24 Urine Culture - Final Urine,Clean Catch Escherichia coli esbl A&P Assessment and plan (1) Complicated UTI (urinary tract infection): Patient with complicated UTI with ESBL with associated metabolic encephalopathy Continue meropenem Will need 14 days IV treatment. When discharged, will discharge on ertapenem. May need PICC line. CBC, BMP tomorrow Try to obtain placement (2) Acute metabolic encephalopathy: Resolved. Secondary to complicated UTI (3) Atrial fibrillation: Rate controlled currently Continue metoprolol, amiodarone, Eliquis (4) CAD (coronary artery disease): Continue Plavix, statin, beta-scot Overall stable (5) Urinary retention: Straight cath 4 times daily Plan Severe weakness. Continue physical therapy/rehab Other medical problems as outlined by past medical history Eliquis will suffice for DVT prophylaxis Full code Attestations 2 Medical Necessity Statement*: Needs continued hospitalization for IV antibiotics secondary to complicated ESBL UTI Diagnoses Complicated UTI (urinary tract infection) N39.0 Acute metabolic encephalopathy G93.41 Atrial fibrillation I48.91 CAD (coronary artery disease) I25.10 Urinary retention R33.9 Time Spent (min) 25
[2024-03-06] MEDS: oxyCODONE 5 mg IR Tab/Cap PO ×2 (12:03→22:03)
--- NOTE | 2024-03-06 14:59 | PC.SOCIAL ---
IMM updated IMM dated and initialed, copy given to patient and copy placed in chart
[2024-03-06 16:32] LABS: Glucose Point of Care 271 mg/dL (70-110)
[2024-03-06 21:12] LABS: Glucose Point of Care 217 mg/dL (70-110)
[2024-03-07] VITALS (7 sets, daily range): BP systolic 100–122; BP diastolic 65–81; PULSE 67–71; RESP 16–18; TEMP 36.5–36.8; O2SAT 97–99
[2024-03-07] MEDS: diazePAM 5 mg Tablet PO (00:01)
[2024-03-07] MEDS: meropenem 1,000 mg SDV 1000 MG IVP ×2 (02:35→10:40)
--- NOTE | 2024-03-07 02:49 | PC.NURSE ---
pt is ordered straight cath q6 hours, his has requeated to wait until 6am meds when patient is awake. patient sleeping in bed at this time with no signs or symptoms of pain or discomfort at this time
[2024-03-07 05:19] LABS: Basophils % 0.5 %; Eosinophils # 0.2 10^3/uL (0.0-0.8); Eosinophils % 2.8 %; Hematocrit 35.3 % (37-53); Lymphocytes # 1.4 10^3/uL (0.8-4.8); Lymphocytes % 24.4 %; Mean Corpuscular HGB Conc 32.6 g/dL (30-55); Mean Corpuscular Volume 88.9 fl (82-101); Mean Platelet Volume 10.3 fL (7.4-10.4); Monocytes # 0.6 10^3/uL (0.2-0.9); Monocytes % 10.4 %; Neutrophils # 3.43 10^3/uL (1.8-7.7); Neutrophils % 60.8 %; Nucleated Red Blood Cells % 0 %; Platelet Count 145 10^3/cmm (157-399); Red Blood Count 3.97 10^6/uL (3.85-5.65); Red Cell Distribution Width 13.7 % (12.1-15.1); White Blood Count 5.65 10^3/uL (3.29-11.43)
[2024-03-07 05:40] LABS: Anion Gap 14.4 (5-19); Blood Urea Nitrogen 11 mg/dL (8-23); Calcium 8.2 mg/dL (8.5-10.5); Carbon Dioxide 28 mmol/L (22-29); Chloride 102 mmol/L (98-107); Creatinine Clr Calc Pharmacy 168.8918; Glomerular Filtration Rate 167.9 mL/min (90-130); Glucose 225 mg/dL (65-115); Osmolality Calculated 298 mOsm/kg (285-295); Potassium 3.4 mmol/L (3.5-5.1); Sodium 141 mmol/L (136-145)
[2024-03-07] MEDS: insulin glargine 100 units/1 mL 16 UNIT SUBCUT (06:16)
[2024-03-07 06:39] LABS: Glucose Point of Care 226 mg/dL (70-110)
[2024-03-07] MEDS: potassium chloride ER 20 mEq Tablet 40 MEQ PO (07:15)
[2024-03-07] MEDS: oxyCODONE 5 mg IR Tab/Cap PO (07:17)
[2024-03-07] MEDS: atorvastatin 40 mg Tablet PO (08:47)
[2024-03-07] MEDS: clopidogrel 75 mg Tablet PO (08:47)
[2024-03-07] MEDS: metoprolol succinate ER (24 HR) 25 mg Tablet 12.5 MG PO (08:47)
[2024-03-07] MEDS: tamsulosin 0.4 mg Capsule PO (08:47)
[2024-03-07] MEDS: apixaban 5 mg Tablet PO (08:47)
[2024-03-07] MEDS: buPROPion SR (12 HR) 100 mg Tablet PO (08:47)
[2024-03-07] MEDS: FUROsemide 40 mg Tablet PO (08:48)
[2024-03-07] MEDS: amiodarone 200 mg Tablet PO (08:48)
--- NOTE | 2024-03-07 09:37 | P.PN_ITS ---
Subjective 2 Subjective: Reports he is doing okay. Still very weak. Understands the need for IV antibiotic. Medications: Reviewed: Yes Vitals/I&O/Wt Last Vital Signs Temp 98.2 F 03/07/24 07:22 Pulse 71 03/07/24 07:22 Resp 16 03/07/24 07:22 BP 122/81 03/07/24 07:22 Pulse Ox 97 03/07/24 07:22 O2 Del Method Room Air 03/07/24 07:22 03/06/24 03/07/24 03/07/24 22:59 06:59 14:59 Intake Total 240 / 480 236 / 236 Output Total 820 / 1620 850 / 2470 Balance -580 / -1140 -850 / -1989 236 / 236 Weight last 48 hrs Weight 87.906 kg Weight 87.906 kg Physical Exam 2 Narrative: General Exam no distress Neck is supple Cardiovascular regular rate and rhythm Lungs clear Abdomen is soft Extremities no sinus clubbing edema Urinary Catheter Management: 2-way Urethral: Cath Placed During This Visit: yes, but has since been removed by the nurse Reason for Continuing Indwelling Catheter: Decision to DC Catheter Urinary Catheter Date of Insertion: 03/03/24 Urinary Catheter Time of Insertion: 19:08 Date Urinary Catheter Removed: 03/05/24 Time Urinary Catheter Discontinued: 10:50 Data 03/07/24 05:05 03/07/24 05:05 Micro: Microbiology 03/05/24 13:28 Blood Culture - Preliminary Blood NEGATIVE TO DATE 03/05/24 13:28 Blood Culture - Preliminary Blood NEGATIVE TO DATE A&P Assessment and plan (1) Complicated UTI (urinary tract infection): Patient with complicated UTI with ESBL with associated metabolic encephalopathy Continue meropenem Will need 14 days IV treatment. When discharged, will discharge on ertapenem. May need PICC line. No need for lab tomorrow Try to obtain placement (2) Acute metabolic encephalopathy: Resolved. Secondary to complicated UTI (3) Atrial fibrillation: Rate controlled currently Continue metoprolol, amiodarone, Eliquis (4) CAD (coronary artery disease): Continue Plavix, statin, beta-scot Overall stable (5) Urinary retention: Straight cath 4 times daily Plan Severe weakness. Continue physical therapy/rehab Hypokalemia, supplement today Other medical problems as outlined by past medical history Eliquis will suffice for DVT prophylaxis Full code Attestations 2 Medical Necessity Statement*: Needs continued hospitalization for IV antibiotics secondary to complicated ESBL UTI Diagnoses Complicated UTI (urinary tract infection) N39.0 Acute metabolic encephalopathy G93.41 Atrial fibrillation I48.91 CAD (coronary artery disease) I25.10 Urinary retention R33.9 Time Spent (min) 21
[2024-03-07 11:14] LABS: Glucose Point of Care 210 mg/dL (70-110)
--- NOTE | 2024-03-07 15:10 | PICC.NOTE ---
Midline placed to left basilic vein. Referred to vascular access nurse for Midline placement due to need for IV antibiotics x 14 days. Risks and benefits discussed and informed consent obtained from pt. Left arm assessed with left basilic vein measuring 4.5 mm, straight, and apparent best choice for placement. Using sterile technique and MST, left basilic vein accessed x 1 stick. Mid-arm circumference measured 10 cm from left AC 28 cm. Trimmed cath 10 cm with 0 cm external length noted. Line secured with stat-lock. Insertion site covered with Biopatch and TSM. Report given to bedside nurse, Negar. it communications manager, Nata, updated on placement.
--- NOTE | 2024-03-07 15:41 | P.DS_ITS ---
Discharge Providers Date of Admission: 03/04/24 08:22 Date of Discharge: March 07, 2024 Attending Provider at Admission: Juanito Hunter MD Attending Provider at Discharge: Jordin Castillo MD Primary Care Provider: Justin May MD Diagnoses at Discharge Discharge Diagnosis (1) Complicated UTI (urinary tract infection): Status: Acute (2) Acute metabolic encephalopathy: Status: Acute (3) Atrial fibrillation: Status: Acute (4) CAD (coronary artery disease): Status: Acute (5) Urinary retention: Status: Acute Reason for Visit Reason for Visit: possible sepsis Hospital Course Hospital Course Patient presented to the hospital with acute encephalopathy, and UTI. He has been known to have ESBL UTIs in the past. He was placed on meropenem, and cultures were obtained of his urine and blood. With this treatment, he had gradual improvement. Encephalopathy resolved. Urine grew ESBL, sensitive to carbapenem. Blood cultures were negative. On March 07, he was doing well enough that he could be discharged to the nursing facility for rehabilitation. He still had significant weakness. He will finish up 10 more days of IV or ertapenem there. He received 4 days in the hospital. He will follow-up with urology. He will continue to self cath 4 times daily. Patient and at good understanding, and were given opportunity to ask questions during his hospital stay. Physical Exam Narrative: See exam done earlier today Urinary Catheter Management: 2-way Urethral: Cath Placed During This Visit: yes, but has since been removed by the nurse Reason for Continuing Indwelling Catheter: Decision to DC Catheter Urinary Catheter Date of Insertion: 03/03/24 Urinary Catheter Time of Insertion: 19:08 Date Urinary Catheter Removed: 03/05/24 Time Urinary Catheter Discontinued: 10:50 Discharge Data Studies Completed and Pending Completed Studies During Hospitalization Category Date Time Status XR chest 1V portable [id number] Stat Exams 03/02/24 22:11 Completed Pending at discharge Category Date Time Status Blood Culture Stat Lab 03/02/24 23:50 Results Blood Culture Stat Lab 03/05/24 13:28 Results COVID [SARS Covid-2 Antigen] Routine Lab 03/07/24 15:20 Received Radiology Impressions Chest X-Ray 03/02/24 22:11 IMPRESSION: Negative for focal acute pulmonary disease. Laboratory Results WBC 5.65 10^3/uL (3.29-11.43) 03/07/24 05:05 Corrected WBC Cancelled 03/05/24 03:47 RBC 3.97 10^6/uL (3.85-5.65) 03/07/24 05:05 Hgb 11.50 g/dL (11.27-16.99) 03/07/24 05:05 Hct 35.3 % (37-53) L 03/07/24 05:05 MCV 88.9 fl (82-101) 03/07/24 05:05 MCH 29.0 pg (27-33) 03/07/24 05:05 MCHC 32.6 g/dL (30-55) 03/07/24 05:05 RDW 13.7 % (12.1-15.1) 03/07/24 05:05 Plt Count 145 10^3/cmm (157-399) L 03/07/24 05:05 MPV 10.3 fL (7.4-10.4) 03/07/24 05:05 Gran % Cancelled 03/05/24 03:47 Neut % (Auto) 60.8 % 03/07/24 05:05 Lymph % (Auto) 24.4 % 03/07/24 05:05 [place] % (Auto) 10.4 % 03/07/24 05:05 Eos % (Auto) 2.8 % 03/07/24 05:05 Baso % (Auto) 0.5 % 03/07/24 05:05 Neut # (Auto) 3.43 10^3/uL (1.8-7.7) 03/07/24 05:05 Lymph # (Auto) 1.4 10^3/uL (0.8-4.8) 03/07/24 05:05 [place] # (Auto) 0.6 10^3/uL (0.2-0.9) 03/07/24 05:05 Eos # (Auto) 0.2 10^3/uL (0.0-0.8) 03/07/24 05:05 Baso # (Auto) 0.0 10^3/uL (0.0-0.1) 03/07/24 05:05 Absolute Gran (auto) Cancelled 03/05/24 03:47 Nucleated RBC % (auto) 0 % 03/07/24 05:05 Nucleated RBCs # 0.0 /100WBC 03/07/24 05:05 Sodium 141 mmol/L (136-145) 03/07/24 05:05 Potassium 3.4 mmol/L (3.5-5.1) L 03/07/24 05:05 Chloride 102 mmol/L (98-107) 03/07/24 05:05 Carbon Dioxide 28 mmol/L (22-29) 03/07/24 05:05 Anion Gap 14.4 (5-19) 03/07/24 05:05 BUN 11 mg/dL (8-23) 03/07/24 05:05 Creatinine 0.5 mg/dL (0.7-1.2) L 03/07/24 05:05 GFR Calculation 167.9 mL/min (90-130) H 03/07/24 05:05 Glucose 225 mg/dL (65-115) H 03/07/24 05:05 POC Glucose 210 mg/dL (70-110) H 03/07/24 11:08 Calculated Osmolality 298 mOsm/kg (285-295) H 03/07/24 05:05 Lactic Acid 1.7 mmol/L (0.5-2.2) 03/02/24 21:00 Calcium 8.2 mg/dL (8.5-10.5) L 03/07/24 05:05 Magnesium 1.8 mg/dL (1.7-2.3) 03/05/24 03:47 Total Bilirubin 0.7 mg/dL (0.15-1.2) 03/02/24 21:00 AST 12 U/L (0-40) 03/02/24 21:00 ALT 9 U/L (0-41) 03/02/24 21:00 Alkaline Phosphatase 135 U/L (40-130) H 03/02/24 21:00 C-Reactive Protein 55.7 mg/L (0.0-4.9) H 03/02/24 21:00 Total Protein 7.1 g/dL (6.6-8.7) 03/02/24 21:00 Albumin 3.5 g/dL (3.5-5.2) 03/02/24 21:00 Globulin 3.6 g/dL (1.3-4.6) 03/02/24 21:00 Procalcitonin 0.18 ng/mL (0-0.5) 03/02/24 21:50 Urine Color Yellow (Yellow) 03/03/24 00:24 Urine Appearance Cloudy (CLEAR) A 03/03/24 00:24 Urine pH 5.5 (5-7) 03/03/24 00:24 Ur Specific [place] 1.012 (1.005-1.030) 03/03/24 00:24 Urine Protein 1+ (Negative) A 03/03/24 00:24 Urine Glucose (UA) Negative (Normal) 03/03/24 00:24 Urine Ketones Negative (Negative) 03/03/24 00:24 Urine Blood 3+ (Negative) A 03/03/24 00:24 Urine Nitrate Negative (Negative) 03/03/24 00:24 Urine Bilirubin Negative (Negative) 03/03/24 00:24 Urine Urobilinogen 1.0 mg/dL (Negative) 03/03/24 00:24 Ur Leukocyte Esterase 3+ (Negative) A 03/03/24 00:24 Urine RBC 21-50 /hpf (0-2) H 03/03/24 00:24 Urine WBC >100 /hpf (0-5) H 03/03/24 00:24 Ur Squamous Epith Cells 0-5 /hpf (0-5) 03/03/24 00:24 Amorphous Sediment Not Reportable 03/03/24 00:24 Urine Bacteria Exceeds /hpf (NONE) 03/03/24 00:24 Hyaline Casts 1.21 /lpf 03/03/24 00:24 Adenovirus (PCR) Not detected (NOT DETECT) 03/02/24 23:37 C. pneumoniae DNA (PCR) Not detected (NOT DETECT) 03/02/24 23:37 Coronavirus 229E (PCR) Not detected (NOT DETECT) 03/02/24 23:37 Human Metapneumovir PCR Not detected (NOT DETECT) 03/02/24 23:37 Influenza A (H1) PCR Not detected (NOT DETECT) 03/02/24 23:37 Influ A (H1/09) PCR Not detected (NOT DETECT) 03/02/24 23:37 Influenza A (H3) PCR Not detected (NOT DETECT) 03/02/24 23:37 Influenza Type A (PCR) Not detected (NOT DETECT) 03/02/24 23:37 Influenza Type B (PCR) Not detected (NOT DETECT) 03/02/24 23:37 M. pneumoniae (PCR) Not detected (NOT DETECT) 03/02/24 23:37 Parainfluenza 1 (PCR) Not detected (NOT DETECT) 03/02/24 23:37 Parainfluenza 2 (PCR) Not detected (NOT DETECT) 03/02/24 23:37 Parainfluenza 3 (PCR) Not detected (NOT DETECT) 03/02/24 23:37 Parainfluenza 4 (PCR) Not detected (NOT DETECT) 03/02/24 23:37 RSV Type A (PCR) Not detected (NOT DETECT) 03/02/24 23:37 RSV Type B (PCR) Not detected (NOT DETECT) 03/02/24 23:37 Entero/Rhino (PCR) Not detected (NOT DETECT) 03/02/24 23:37 SARS-CoV-2 (PCR) Not detected (NOT DETECT) 03/02/24 23:37 MRSA (PCR) Not detected (NOT DETECTED) 03/03/24 04:50 Vitals Last Vital Signs Temp 97.7 F 03/07/24 11:04 Pulse 67 03/07/24 11:04 Resp 16 03/07/24 11:04 BP 100/65 03/07/24 11:04 Pulse Ox 98 03/07/24 11:04 O2 Del Method Room Air 03/07/24 11:04 Discharge Plan Discharge Patient Disposition: Xfer Condition: Serious Prescriptions: Continued acetaminophen 325 mg Tablet 650 mg PO Q6H PRN (Reason: Pain) albuterol sulfate 90 mcg/actuation HFA aerosol inhaler 1 puff INHALATION Q4H PRN (Reason: Wheezing) sennosides [Senokot] 8.6 mg Tablet 8.6 mg PO BID melatonin 3 mg Tablet 3 mg PO BEDTIME clopidogrel 75 mg tablet 75 mg PO DAILY bupropion HCl 100 mg tablet 100 mg PO BID magnesium hydroxide [Milk of Magnesia] 400 mg/5 mL Suspension 30 ml PO DAILY PRN (Reason: Constipation) trazodone 100 mg Tablet 100 mg PO BEDTIME bisacodyl [Dulcolax (bisacodyl)] 10 mg Suppository 10 mg OR DAILY PRN (Reason: Constipation) Fleet Enema 19-7 gram/118 mL Enema 118 ml OR DAILY PRN (Reason: Constipation) nitroglycerin [Nitrostat] 0.4 mg Tablet, Sublingual 0.4 mg SUBLINGUAL Q5M PRN (Reason: Chest Pain) Rx Instructions: do not exceed 3 doses per episode bisacodyl [Dulcolax (bisacodyl)] 5 mg Tablet,Delayed Release (Dr/Ec) 10 mg PO BID PRN (Reason: Constipation) ondansetron 4 mg Tablet,Disintegrating 4 mg PO Q8H PRN (Reason: Nausea) oxycodone 5 mg Tablet 5 mg PO Q4H PRN (Reason: Pain) insulin glargine [Lantus U-100 Insulin] 100 unit/mL Solution 20 unit SUBCUT QAM Qty: 15 0RF diazepam 5 mg Tablet 5 mg PO Q8H PRN (Reason: Anxiety) Qty: 20 0RF furosemide 40 mg tablet 40 mg PO DAILY atorvastatin 40 mg tablet 40 mg PO DAILY tizanidine 4 mg tablet 4 mg PO Q8H PRN (Reason: Nausea) amiodarone 200 mg tablet 200 mg PO DAILY spironolactone 25 mg tablet 25 mg PO DAILY tamsulosin 0.4 mg capsule 0.4 mg PO DAILY metoprolol succinate 25 mg tablet extended release 24 hr 12.5 mg PO DAILY insulin lispro 100 unit/mL insulin pen See Rx Instructions .ROUTE .COMPLEX Rx Instructions: INJECT 10 UNITS SUBCUTANEOUSLY BEFORE MEALS AND AT BEDTIME AND PER SLIDING SCALE:BP 150-199=2 UNITS, 200-249=4 UNITS, 250-299=6 UNITS, 300-349=8 UNITS, 350-399=10 UNITS, 400-499=12 UNITS. Eliquis 5 mg tablet 5 mg PO BID Discharge Orders: Discharge Order (Routine); Ordered 03/07/24 Ordered By: Jordin Castillo Referrals: [facility] [place] [Outside] Justin May MD [Primary Care Provider] - 4-7 days Discharge Diet: Usual diet Discharge Activity: Increase activity as tolerated Patient Instructions: Opioid Safety Activity Restrictions/Additional Instructions: Complete 10 days of ertapenem 1 g IV daily through midline, then discontinue midline Arrange follow-up with urology in the next week Follow-up with nurse practitioner at nursing facility in 3 to 5 days CBC and CMP in 3 days Continue self cath 4 times daily Return for any concerns Discharge Attestations Time Spent in Discharge Care*: greater than 30 min Quality Metrics Clinical Quality Measures [ No reported AMI, CVA or VTE this stay] Coding Level of Care Code 72945 Diagnoses Complicated UTI (urinary tract infection) N39.0 Acute metabolic encephalopathy G93.41 Atrial fibrillation I48.91 CAD (coronary artery disease) I25.10 Urinary retention R33.9
[2024-03-07] MEDS: ertapenem 1,000 MG in sodium chloride 0.9% (plus) 100 ML 200 MG IV (15:42)
[2024-03-07 15:49] LABS: SARS Covid-2 Antigen negative (Negative)
== END 2024-03-07 16:40 | disposition short-term general hospital (02) | DRG 689 ==
LOC: ER 22:48 → MEDSURG 03-03 02:04
PROVIDERS: Internal Medicine; Admitting Provider Internal Medicine; Emergency Provider Emergency Medicine; PCP Family Medicine; Visit Provider Internal Medicine
DX: N39.0 Urinary tract infection, site not specified (principal); G93.41 Metabolic encephalopathy; Z16.12 Extended spectrum beta lactamase (ESBL) resistance; I25.10 Atherosclerotic heart disease of native coronary artery without angina pectoris; I48.0 Paroxysmal atrial fibrillation; R33.9 Retention of urine, unspecified; F41.9 Anxiety disorder, unspecified; E87.6 Hypokalemia; Z79.02 Long term (current) use of antithrombotics/antiplatelets; Z95.1 Presence of aortocoronary bypass graft; Z79.4 Long term (current) use of insulin; Z79.899 Other long term (current) drug therapy; Z88.8 Allergy status to other drugs, medicaments and biological substances; Z91.041 Radiographic dye allergy status; Z87.440 Personal history of urinary (tract) infections; Z11.52 Encounter for screening for COVID-19; Z79.01 Long term (current) use of anticoagulants; E11.9 Type 2 diabetes mellitus without complications
CPT/HCPCS: 36415; 36416; 36569; 51702; 71045; 80048; 80053; 81003; 81015; 82962; 83605; 83735; 84145; 85025; 86140; 87040; 87077; 87086; 87186; 87426; 87486; 87581; 87633; 87641; 96365; 96372; 96375; 97110; 97116; 97161; 97166; 97530; 97535; 99285; C1751; G0378; J0131; J1335; J1815; J1885; J2185; J2405; J3370; J3535; J7030; J7050

== ENCOUNTER → 2024-05-02 08:23 | Outpatient (BNVA) | payer MEDICARE, SELFPAY | PROVIDERS: PCP Family Medicine; Visit Provider Podiatrist Foot & Ankle Surgery | DX: L60.3 Nail dystrophy (principal); L89.620 Pressure ulcer of left heel, unstageable; G62.9 Polyneuropathy, unspecified; I73.9 Peripheral vascular disease, unspecified; E11.42 Type 2 diabetes mellitus with diabetic polyneuropathy; Z79.4 Long term (current) use of insulin | CPT/HCPCS: 11721; 99204 ==

== ENCOUNTER → 2024-07-31 09:13 | Outpatient (BNVA) | payer MEDICARE, SELFPAY | PROVIDERS: PCP Family Medicine; Visit Provider Podiatrist Foot & Ankle Surgery | DX: L60.3 Nail dystrophy (principal); G62.9 Polyneuropathy, unspecified; I73.9 Peripheral vascular disease, unspecified; E11.42 Type 2 diabetes mellitus with diabetic polyneuropathy; Z79.4 Long term (current) use of insulin | CPT/HCPCS: 11721 ==

== ENCOUNTER 2024-11-02 11:23 | Emergency (ER) | payer MEDICARE, SELFPAY ==
[2024-11-02] VITALS (10 sets, daily range): BP systolic 96–132; BP diastolic 59–79; PULSE 61–70; RESP 16–20; TEMP 36.5; O2SAT 90–99; BMI 27.8
--- NOTE | 2024-11-02 11:27 | CTR_ITS ---
PROCEDURE INFORMATION: Exam: CT Abdomen And Pelvis With Contrast Exam date and time: 11/02/2024 12:45 PM Age: 64 years old Clinical indication: Abdominal pain; Additional info: Abd pain TECHNIQUE: Imaging protocol: Computed tomography of the abdomen and pelvis with contrast. Radiation optimization: All CT scans at this facility use at least one of these dose optimization techniques: automated exposure control; mA and/or kV adjustment per patient size (includes targeted exams where dose is matched to clinical indication); or iterative reconstruction. Contrast material: [id number]; Contrast volume: 100 ml; Contrast route: INTRAVENOUS (IV); COMPARISON: CT abdomen pelvis w con* [id number] 01/19/2024 12:29 PM RADIATION DOSE METRICS: Total DLP (mGy-cm): 1003.1 FINDINGS: Lungs: Lingular 7 mm calcified granuloma. Heart: Cardiomegaly is seen. Liver: Normal. No mass. Gallbladder and biliary ducts: Normal. No calcified stones. No ductal dilation. Pancreas: Pancreatic ductal dilatation measuring 4 mm. There is a questionable hypodense lesion involving the pancreatic head measuring 1.2 x 1.3 cm. Spleen: Calcified granulomas in the spleen. Adrenal glands: Normal. No mass. Kidneys and ureters: Left renal lower pole 3 mm stone. Stomach and bowel: Descending colon diverticulosis. Diffuse colonic stool material. No small bowel loop dilatation. Appendix: Appendix is normal. Intraperitoneal space: Unremarkable. No free air. No significant fluid collection. Vasculature: Mild calcified atherosclerotic changes are seen throughout the abdominal aorta. Left-sided inferior vena cava. Lymph nodes: Unremarkable. No enlarged lymph nodes. Urinary bladder: There is a right-sided bladder diverticulum measuring 4.3 x 3.2 cm. There is a left-sided bladder diverticulum measuring 4.3 x 4.8 cm. Reproductive: Unremarkable as visualized. Bones/joints: Age indeterminate compression deformity involving the superior endplate of the L2 vertebral body. Soft tissues: Unremarkable. CT/CT abdomen pelvis w con* [id number] IMPRESSION: 1. Pancreatic ductal dilatation measuring 4 mm. There is a questionable hypodense lesion involving the pancreatic head measuring 1.2 x 1.3 cm. MRI of the pancreas without and with contrast for further evaluation is advised. 2. Left renal lower pole 3 mm stone. 3. Bladder diverticula 4. Age indeterminate compression deformity involving the superior endplate of the L2 vertebral body. 5. Cardiomegaly. 6. Mild calcified atherosclerotic changes are seen throughout the abdominal aorta. 7. Descending colon diverticulosis. 8. Diffuse colonic stool material. Clinical correlation to exclude constipation is advised.
--- NOTE | 2024-11-02 11:38 | W.ED.ABDPA2 ---
HPI - Abdominal Pain General: Chief Complaint: Abdominal Pain Stated Complaint: abd pains, n/v, no bowel movement in 11 days Time Seen by Provider: 11/02/24 11:27 Source: patient Mode of arrival: ambulatory Limitations: no limitations History of Present Illness: 64-year-old male who states he has had constipation over the last 10 days states has not been able have a bowel movements been having some abdominal distention along with abdominal pain he rates 7 out of 10 has had some vomiting as well denies any history of small bowel obstructions denies any previous abdominal surgeries Associated Symptoms: Reports constipation; Denies chills, diarrhea, dysuria, fever(s), nausea and vomiting Related Data Home Medications ?Medication ?Instructions ?Recorded ?Confirmed acetaminophen 325 mg tablet 650 mg PO Q6H PRN Pain 01/19/24 11/02/24 amiodarone 200 mg tablet 200 mg PO DAILY 11/02/24 11/02/24 apixaban 5 mg tablet (Eliquis) 5 mg PO BID 11/02/24 11/02/24 atorvastatin 40 mg tablet 40 mg PO DAILY 11/02/24 11/02/24 bupropion HCl 100 mg tablet 100 mg PO BID 11/02/24 11/02/24 clopidogrel 75 mg tablet 75 mg PO DAILY 11/02/24 11/02/24 furosemide 40 mg tablet 40 mg PO DAILY 11/02/24 11/02/24 insulin glargine 100 unit/mL (3 100 unit SUBCUT QPM 11/02/24 11/02/24 mL) subcutaneous pen (Lantus Solostar U-100 Insulin) insulin lispro 100 unit/mL 8 unit SUBCUT TID 11/02/24 11/02/24 subcutaneous pen lisinopril 2.5 mg tablet 2.5 mg PO DAILY 11/02/24 11/02/24 losartan 50 mg tablet 50 mg PO DAILY 11/02/24 11/02/24 metoprolol succinate 25 mg 12.5 mg PO DAILY 11/02/24 11/02/24 tablet,extended release 24 hr nitroglycerin 0.4 mg sublingual 0.4 mg sublingual PRN PRN Chest 11/02/24 11/02/24 tablet Pain potassium chloride 20 mEq 20 meq PO BID 11/02/24 11/02/24 tablet,extended release spironolactone 25 mg tablet 25 mg PO DAILY 11/02/24 11/02/24 tamsulosin 0.4 mg capsule 0.8 mg PO DAILY 11/02/24 11/02/24 trazodone 100 mg tablet 100 mg PO QPM 11/02/24 11/02/24 Previous Rx's ?Medication ?Instructions ?Recorded hydrocodone 5 mg-acetaminophen 325 1 tab PO Q6H PRN pain #14 tabs 11/02/24 mg tablet naproxen 500 mg tablet (Naprosyn) 500 mg PO BID PRN pain #20 tabs 11/02/24 ondansetron 4 mg disintegrating 4 mg PO Q6H PRN nausea and 11/02/24 tablet vomiting #14 tabs peg 3350-electrolytes 236 240 ml PO Q10M #4,000 mL 11/02/24 gram-22.74 gram-6.74 gram-5.86 gram solution (Golytely) Allergies Allergy/AdvReac Type Severity Reaction Status Date / Time empagliflozin (From Allergy Unknown Verified 11/02/24 11:35 Jardiance) Iodinated Contrast Media Allergy ADR-Vomitin Verified 11/02/24 11:35 g alprazolam (From Xanax) AdvReac Intermediate ADR-Halluci Verified 11/02/24 11:35 nating Review of Systems Const: Denies: fever(s), chills, body aches or change in appetite ENMT: Denies: throat pain or dental pain Card: Denies: chest pain Resp: Denies: dyspnea GI: Reports: abdominal pain and constipation; Denies: nausea, vomiting or diarrhea : Denies: dysuria Musc: Denies: neck pain or back pain Skin/Breast: Denies: rash Neuro: Denies: headache(s) PFS ED PFSH: Medical History Type 2 diabetes mellitus Urinary retention UTI due to extended-spectrum beta lactamase (ESBL) producing Escherichia coli Atrial fibrillation CAD (coronary artery disease) Surgical History Hx of CABG Social History Smoking and tobacco/nicotine status: former use of tobacco/nicotine Alcohol intake: never Substance/Drug Use: never Household members: significant other Physical Exam Const: COMMON NORMALS: no acute distress, patient oriented x3 and healthy appearing HENMT: COMMON NORMALS: normocephalic and atraumatic HEAD & SCALP: normocephalic and atraumatic Eye: COMMON NORMALS: conjunctivae normal CONJUNCTIVA: Yes conjunctivae normal Neck/C-Spine: COMMON NORMALS: full ROM and supple Chest: COMMONS NORMALS: normal inspection of the chest Resp: COMMON NORMALS: normal respiratory effort, No retractions, No use of accessory muscles and clear to auscultation bilaterally AUSCULTATION: clear to auscultation bilaterally Cardio: COMMON NORMALS: regular rate, regular rhythm and No murmurs present (Cardio) RATE: regular rate RHYTHM: regular rhythm GI: COMMON NORMALS: Normal to inspection, nondistended, normoactive bowel sounds present, Soft to palpation and no masses PALPATION: Yes Soft to palpation OTHER: mild diffuse tenderness Extremity: COMMON NORMALS: normal to inspection and full ROM Neuro: COMMON NORMALS: patient oriented x3, moves all extremities and no focal motor deficits Psych: COMMON NORMALS: mental status grossly normal, Normal thought process present and cooperative THOUGHT PROCESS: Normal thought process present Skin: COMMON NORMALS: no rashes or lesions noted and no wounds GENERAL SKIN EXAM: no rashes or lesions noted Course Vital Signs: Vital signs: Vital Signs Temperature 97.7 F 11/02/24 11:36 Pulse Rate 67 11/02/24 11:36 Respiratory Rate 16 11/02/24 13:46 Blood Pressure 126/75 11/02/24 11:36 Pulse Oximetry 94 11/02/24 11:53 MDM - Abdominal Pain Medical Decision Making Patient presents for abdominal pain he does have constipation did give a lactulose here I did inform him of the pancreatic mass seen on CT offered to have him referred to oncology here he states all is his physicians in [facility] and he is get a follow-up with his PCP and the team there we will place him on GoLytely he is return if worsening he understands agrees to plan Medical Records I reviewed the patient's medical records. Lab Data I reviewed the patient's lab results. 11/02/24 11:46 11/02/24 11:46 Labs/Radiology: Radiology Impressions Abdomen/Pelvis CT 11/02/24 11:27 IMPRESSION: 1. Pancreatic ductal dilatation measuring 4 mm. There is a questionable hypodense lesion involving the pancreatic head measuring 1.2 x 1.3 cm. MRI of the pancreas without and with contrast for further evaluation is advised. 2. Left renal lower pole 3 mm stone. 3. Bladder diverticula 4. Age indeterminate compression deformity involving the superior endplate of the L2 vertebral body. 5. Cardiomegaly. 6. Mild calcified atherosclerotic changes are seen throughout the abdominal aorta. 7. Descending colon diverticulosis. 8. Diffuse colonic stool material. Clinical correlation to exclude constipation is advised. Laboratory Results WBC 7.33 10^3/uL (3.29-11.43) 11/02/24 11:46 RBC 5.16 10^6/uL (3.85-5.65) 11/02/24 11:46 Hgb 14.80 g/dL (11.27-16.99) 11/02/24 11:46 Hct 46.6 % (37-53) 11/02/24 11:46 MCV 90.3 fl (82-101) 11/02/24 11:46 MCH 28.7 pg (27-33) 11/02/24 11:46 MCHC 31.8 g/dL (30-55) 11/02/24 11:46 RDW 14.1 % (12.1-15.1) 11/02/24 11:46 Plt Count 262 10^3/cmm (157-399) 11/02/24 11:46 MPV 10.1 fL (7.4-10.4) 11/02/24 11:46 Neut % (Auto) 61.5 % 11/02/24 11:46 Lymph % (Auto) 27.6 % 11/02/24 11:46 [place] % (Auto) 7.1 % 11/02/24 11:46 Eos % (Auto) 1.8 % 11/02/24 11:46 Baso % (Auto) 0.8 % 11/02/24 11:46 Neut # (Auto) 4.51 10^3/uL (1.8-7.7) 11/02/24 11:46 Lymph # (Auto) 2.0 10^3/uL (0.8-4.8) 11/02/24 11:46 [place] # (Auto) 0.5 10^3/uL (0.2-0.9) 11/02/24 11:46 Eos # (Auto) 0.1 10^3/uL (0.0-0.8) 11/02/24 11:46 Baso # (Auto) 0.1 10^3/uL (0.0-0.1) 11/02/24 11:46 Nucleated RBC % (auto) 0 % 11/02/24 11:46 Nucleated RBCs # 0.0 /100WBC 11/02/24 11:46 Sodium 132 mmol/L (136-145) L 11/02/24 11:46 Potassium 5.1 mmol/L (3.5-5.1) 11/02/24 11:46 Chloride 97 mmol/L (98-107) L 11/02/24 11:46 Carbon Dioxide 22 mmol/L (22-29) 11/02/24 11:46 Anion Gap 18.1 (5-19) 11/02/24 11:46 BUN 25 mg/dL (8-23) H 11/02/24 11:46 Creatinine 1.0 mg/dL (0.7-1.2) 11/02/24 11:46 GFR Calculation 75.2 mL/min (90-130) L 11/02/24 11:46 Glucose 209 mg/dL (65-115) H 11/02/24 11:46 Calculated Osmolality 285 mOsm/kg (285-295) 11/02/24 11:46 Calcium 9.3 mg/dL (8.5-10.5) 11/02/24 11:46 Total Bilirubin 0.9 mg/dL (0.15-1.2) 11/02/24 11:46 AST 11 U/L (0-40) 11/02/24 11:46 ALT 8 U/L (0-41) 11/02/24 11:46 Alkaline Phosphatase 189 U/L (40-130) H 11/02/24 11:46 Total Protein 8.2 g/dL (6.6-8.7) 11/02/24 11:46 Albumin 4.2 g/dL (3.5-5.2) 11/02/24 11:46 Globulin 4.0 g/dL (1.3-4.6) 11/02/24 11:46 Lipase 20 U/L (13-60) 11/02/24 11:46 All radiology interpretation(s) finalized by discharge Discharge Plan Discharge Patient Disposition: Home Clinical Impression: Constipation, Abdominal pain, Pancreatic mass Condition: Stable Prescriptions: New hydrocodone-acetaminophen 5-325 mg tablet 1 tab PO Q6H PRN (Reason: pain) Qty: 14 0RF ondansetron 4 mg tablet,disintegrating 4 mg PO Q6H PRN (Reason: nausea and vomiting) Qty: 14 0RF naproxen [Naprosyn] 500 mg tablet 500 mg PO BID PRN (Reason: pain) Qty: 20 0RF peg 3350-electrolytes [Golytely] 236-22.74-6.74 -5.86 gram recon soln 240 ml PO Q10M Qty: 4000 0RF Rx Instructions: until fecal effluent is clear No Action acetaminophen 325 mg Tablet 650 mg PO Q6H PRN (Reason: Pain) losartan 50 mg tablet 50 mg PO DAILY furosemide 40 mg tablet 40 mg PO DAILY atorvastatin 40 mg tablet 40 mg PO DAILY amiodarone 200 mg tablet 200 mg PO DAILY clopidogrel 75 mg tablet 75 mg PO DAILY spironolactone 25 mg tablet 25 mg PO DAILY bupropion HCl 100 mg tablet 100 mg PO BID tamsulosin 0.4 mg capsule 0.8 mg PO DAILY trazodone 100 mg tablet 100 mg PO QPM nitroglycerin 0.4 mg tablet, sublingual 0.4 mg sublingual PRN PRN (Reason: Chest Pain) metoprolol succinate 25 mg tablet extended release 24 hr 12.5 mg PO DAILY lisinopril 2.5 mg tablet 2.5 mg PO DAILY insulin lispro 100 unit/mL insulin pen 8 unit SUBCUT TID insulin glargine [Lantus Solostar U-100 Insulin] 100 unit/mL (3 mL) insulin pen 100 unit SUBCUT QPM Eliquis 5 mg tablet 5 mg PO BID potassium chloride 20 mEq tablet extended release 20 meq PO BID Discharge Orders: Discharge ED (Routine); Ordered 11/02/24 Ordered By: Patricia Rodriguez Referrals: Justin May MD [Primary Care Provider, Family Practice] Discharge Diet: Advance as tolerated Discharge Activity: Resume usual activity Patient Instructions: Constipation (ED), Abdominal Pain (ED), Opioid Safety Print Language: Georgian Coding Level of Care Code ED 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
[2024-11-02] MEDS: ondansetron 2 mg/ML SDV 2 mL 4 MG IVP (11:50)
[2024-11-02 11:51] LABS: Basophils # 0.1 10^3/uL (0.0-0.1); Basophils % 0.8 %; Eosinophils # 0.1 10^3/uL (0.0-0.8); Eosinophils % 1.8 %; Hematocrit 46.6 % (37-53); Lymphocytes % 27.6 %; Mean Corpuscular HGB Conc 31.8 g/dL (30-55); Mean Corpuscular Hemoglobin 28.7 pg (27-33); Mean Corpuscular Volume 90.3 fl (82-101); Mean Platelet Volume 10.1 fL (7.4-10.4); Monocytes # 0.5 10^3/uL (0.2-0.9); Monocytes % 7.1 %; Neutrophils # 4.51 10^3/uL (1.8-7.7); Neutrophils % 61.5 %; Nucleated Red Blood Cells % 0 %; Platelet Count 262 10^3/cmm (157-399); Red Blood Count 5.16 10^6/uL (3.85-5.65); Red Cell Distribution Width 14.1 % (12.1-15.1); White Blood Count 7.33 10^3/uL (3.29-11.43)
[2024-11-02] MEDS: morphine 4 mg/mL SDV 1 mL IVP ×2 (11:53→13:46)
[2024-11-02 12:12] LABS: Alanine Aminotransferase 8 U/L (0-41); Albumin Level 4.2 g/dL (3.5-5.2); Alkaline Phosphatase 189 U/L (40-130); Anion Gap 18.1 (5-19); Aspartate Amino Transferase 11 U/L (0-40); Blood Urea Nitrogen 25 mg/dL (8-23); Calcium 9.3 mg/dL (8.5-10.5); Carbon Dioxide 22 mmol/L (22-29); Chloride 97 mmol/L (98-107); Creatinine Clr Calc Pharmacy 83.3876; Glomerular Filtration Rate 75.2 mL/min (90-130); Glucose 209 mg/dL (65-115); Lipase 20 U/L (13-60); Osmolality Calculated 285 mOsm/kg (285-295); Potassium 5.1 mmol/L (3.5-5.1); Sodium 132 mmol/L (136-145); Total Bilirubin 0.9 mg/dL (0.15-1.2); Total Protein 8.2 g/dL (6.6-8.7)
[2024-11-02] MEDS: methylPREDNISolone sod succ 40 mg/mL INJ IVP (12:38)
[2024-11-02] MEDS: diphenhydrAMINE 50 mg/mL SDV 1mL IVP (12:41)
[2024-11-02] MEDS: iohexol 350 mg/mL 500 mL Btl (per mL) IV (12:48)
[2024-11-02] MEDS: lactulose oral liq 20 gm/30 mL UDC 30 GM PO (13:46)
== END 2024-11-02 15:33 | disposition home or self-care (01) ==
PROVIDERS: Emergency Provider Emergency Medicine; PCP Family Medicine
DX: K59.00 Constipation, unspecified (principal); R10.9 Unspecified abdominal pain; K86.9 Disease of pancreas, unspecified; Z79.02 Long term (current) use of antithrombotics/antiplatelets; Z79.4 Long term (current) use of insulin; Z79.01 Long term (current) use of anticoagulants; Z87.891 Personal history of nicotine dependence; E11.9 Type 2 diabetes mellitus without complications; I25.10 Atherosclerotic heart disease of native coronary artery without angina pectoris
CPT/HCPCS: 36415; 74177; 80053; 83690; 85025; 96374; 96375; 96376; 99285; J1200; J2270; J2405; J2919; J9999